=== PATIENT | female | born 1935 | race Caucasian/White ===

== ENCOUNTER 2020-09-09 12:00 | Inpatient (IN) | payer MEDICARE ==
[~2020-09-09] VITALS: Ht 162.6 cm; Wt 61.2 kg
[2020-09-09 12:38] LABS: BILIRUBIN,URINE NEG (NEG); CLARITY,URINE CLOUDY; COLOR,URINE YELLOW; GLUCOSE,URINE NEG (NEG)
[2020-09-09 12:39] LABS: BACTERIA,URINE MOD /HPF (0-FEW); NITRITE,URINE NEG (NEG); RBC,URINE RARE /HPF (0-2); UROBILINOGEN,URINE 0.2 mg/dL (0.2 mg/dL); WBC,URINE TNTC /HPF (0-4)
[2020-09-09 13:10] LABS: CALCIUM 9.4 mg/dL (8.5-10.1); CREATININE 1.4 mg/dL (0.6-1.0); GFR 35.7; POTASSIUM 4.6 mmol/L (3.5-5.1)
[2020-09-09 13:15] LABS: MAGNESIUM 2.1 mg/dL (1.8-2.4); TOTAL BILIRUBIN 0.6 mg/dL (0.2-1.0); TOTAL PROTEIN 8.1 g/dL (6.4-8.2)
[2020-09-09 13:27] LABS: BASO % 0 % (0-3); EOS % 0 % (0-3); HEMATOCRIT 31.2 % (36.0-47.0); HEMOGLOBIN 10.2 g/dL (12.0-15.5); LYMPH # 1.5 x10^3/uL (1.0-4.8); LYMPH % 10 % (24-48); MEAN CORPUSCULAR HEMOGLOBIN 31 pg (25-35); MEAN CORPUSCULAR HGB CONC 33 g/dL (31-37); MEAN CORPUSCULAR VOLUME 93 fL (79-100); MONO # 1.2 x10^3/uL (0.0-1.1); MONO % 7 % (0-9); NEUT # 13.3 x10^3uL (1.8-7.7); NEUT % 83 % (31-73); PLATELET COUNT 370 x10^3/uL (140-400); RED BLOOD COUNT 3.34 x10^6/uL (3.50-5.40); RED CELL DISTRIBUTION WIDTH 13.3 % (11.5-14.5); WHITE BLOOD COUNT 16.2 x10^3/uL (4.0-11.0)
[2020-09-09 14:59] LABS: % LYMPHS 5 % (24-48); % MONOS 6 % (0-10); % SEGS 89 % (35-66); PLT ESTIMATE ADEQUATE (ADEQUATE)
[2020-09-09] MEDS ORDERED: POTA20TA4 PO (20:31)
[2020-09-09] MEDS ORDERED: FURO-69 PO (20:31)
[2020-09-09] MEDS ORDERED: AMLO5TAB4 PO (20:31)
[2020-09-09] MEDS ORDERED: LOSA100T14 PO (20:31)
[2020-09-09] MEDS ORDERED: METF500T16 PO (20:31)
[2020-09-09] MEDS ORDERED: LIDO700A21 TP (20:31)
[2020-09-09] MEDS ORDERED: CHOL400C PO (20:31)
[2020-09-09] MEDS ORDERED: CHOL500021 PO (20:31)
[2020-09-09] MEDS ORDERED: OLAN5TAB3 PO (20:31)
[2020-09-09] MEDS ORDERED: OLAN2.5T3 PO (20:31)
[2020-09-09] MEDS ORDERED: ACET500T68 PO (20:31)
[2020-09-10 07:55] LABS: BASO % 0 % (0-3); EOS # 0.1 x10^3/uL (0.0-0.7); EOS % 1 % (0-3); HEMATOCRIT 28.9 % (36.0-47.0); HEMOGLOBIN 9.6 g/dL (12.0-15.5); LYMPH # 2.5 x10^3/uL (1.0-4.8); LYMPH % 23 % (24-48); MEAN CORPUSCULAR HEMOGLOBIN 32 pg (25-35); MEAN CORPUSCULAR HGB CONC 33 g/dL (31-37); MEAN CORPUSCULAR VOLUME 95 fL (79-100); MONO # 0.9 x10^3/uL (0.0-1.1); MONO % 9 % (0-9); NEUT # 7.2 x10^3uL (1.8-7.7); NEUT % 67 % (31-73); PLATELET COUNT 339 x10^3/uL (140-400); RED BLOOD COUNT 3.06 x10^6/uL (3.50-5.40); RED CELL DISTRIBUTION WIDTH 13.8 % (11.5-14.5); WHITE BLOOD COUNT 10.7 x10^3/uL (4.0-11.0)
[2020-09-10 08:22] LABS: ALBUMIN 3.1 g/dL (3.4-5.0); ALBUMIN/GLOBULIN RATIO 0.8 (1.0-1.7); CALCIUM 8.6 mg/dL (8.5-10.1); CREATININE 0.9 mg/dL (0.6-1.0); GFR 59.5; POTASSIUM 3.5 mmol/L (3.5-5.1); TOTAL BILIRUBIN 0.5 mg/dL (0.2-1.0); TOTAL PROTEIN 6.9 g/dL (6.4-8.2)
[2020-09-11 11:49] LABS: HEMATOCRIT 29.8 % (36.0-47.0); HEMOGLOBIN 9.8 g/dL (12.0-15.5); RED BLOOD COUNT 3.16 x10^6/uL (3.50-5.40); RED CELL DISTRIBUTION WIDTH 13.5 % (11.5-14.5); WHITE BLOOD COUNT 9.4 x10^3/uL (4.0-11.0)
[2020-09-11 12:01] LABS: CALCIUM 8.3 mg/dL (8.5-10.1); CREATININE 0.9 mg/dL (0.6-1.0); GFR 59.5; POTASSIUM 3.4 mmol/L (3.5-5.1)
[2020-09-11 12:07] LABS: ALBUMIN 2.9 g/dL (3.4-5.0); ALBUMIN/GLOBULIN RATIO 0.7 (1.0-1.7); TOTAL BILIRUBIN 0.3 mg/dL (0.2-1.0); TOTAL PROTEIN 6.8 g/dL (6.4-8.2)
[2020-09-11 14:43] VITALS: BP 117/60
[2020-09-11] MEDS ORDERED: LIDO1ADH63 TP (15:47)
[2020-09-11] MEDS ORDERED: LACT1CAP19 PO (15:47)
== END 2020-09-11 15:50 | DRG 871 ==
LOC: ER 12:00 → ICU 15:06
PROVIDERS: ADMIT Internal Medicine; ATTEND Internal Medicine
DX: A41.9 Sepsis, unspecified organism (principal); N17.0 Acute kidney failure with tubular necrosis; F23 Brief psychotic disorder; N39.0 Urinary tract infection, site not specified; I10 Essential (primary) hypertension; F03.90 Unspecified dementia, unspecified severity, without behavioral disturbance, psychotic disturbance, mood disturbance, and anxiety; E86.0 Dehydration; B96.20 Unspecified Escherichia coli [E. coli] as the cause of diseases classified elsewhere; E11.9 Type 2 diabetes mellitus without complications; M16.11 Unilateral primary osteoarthritis, right hip; Z87.891 Personal history of nicotine dependence; F32.9 Major depressive disorder, single episode, unspecified
CPT/HCPCS: 36415; 72192; 80053; 81001; 82947; 83540; 83550; 83605; 83735; 85007; 85025; 85027; 87040; 87077; 87086; 87186; 93005; 96361; 96365; J0696; J1630; J2270; 99291-25; J7030

== ENCOUNTER 2020-09-11 14:13 | Inpatient (IN) | payer MEDICARE ==
[~2020-09-11] VITALS: Ht 162.6 cm; Wt 61.6 kg
[~2020-09-11 14:13] MED LIST: ACET500T68 PO; AMLO5TAB4 PO; CHOL400C PO; CHOL500021 PO; FURO-69 PO; LIDO700A21 TP; LOSA100T14 PO; METF500T16 PO; OLAN2.5T3 PO; OLAN5TAB3 PO; POTA20TA4 PO
--- NOTE | 2020-09-11 15:30 | NUR ---
Admission Note with Justification for Admission to [facility] Patient admitted to [facility] for protective oversight for emergency stabilization of acute psychiatric crisis. Pt admitted from: SNF Mode of arrival: wheelchair Accompanied By: [facility] Staff Precipitating behaviors that initiated intake and admission: stated she wants to kill herself, yelling, threatening to hit others, name calling, insomnia, refusing cares, talking to son who's not there Description of failure of out patient attempts at stabilization in previous setting list behavior and medication trials: stopped steroid, started zyprexa, Dr. Fuller referred to [facility] Behaviors and assessment findings upon admission: Pt is very disorganized, only oriented to herself. She is otherwise pleasant and cooperative with assessment. She can be demanding at times, but is very social and enjoys having someone to talk to. Skin is intact. Pt denies having any pain at time of assessment. Pt denies SI/HI and having hallucinations. Will continue to monitor. Plan: Admit for protective oversight for adjustment and stabilization of medications, behaviors and mood. Intense treatment regimen including groups, medication adjustments, therapy, consistent regimen for ADL's, self care, and sleep hygiene. Daily monitoring by Inpatient staff, Psychiatry, and Medical Physician.
[2020-09-11] MEDS ORDERED: LIDO1ADH63 TP (15:47)
[2020-09-11] MEDS ORDERED: LACT1CAP19 PO (15:47)
--- NOTE | 2020-09-11 15:51 | NUR ---
NSG NOTE; COVID VACCINES X2 RECEIVED 06/02/20 & 06/23/20 AT [facility]
[2020-09-11] MEDS ORDERED: METHYL SALICYLATE/MENTHOL TOPICAL OINTMENT 57GM TUBE. TP PRN (16:15)
[2020-09-11] MEDS ORDERED: ACETAMINOPHEN 325 MG TABLET PO PRN (16:15)
[2020-09-11] MEDS ORDERED: MAGNESIUM HYDROXIDE 2,400 MG/30 ML ORAL.SUSP. PO PRN (16:15)
[2020-09-11] MEDS ORDERED: MAG HYDROX/AL HYDROX/SIMETH 30 ML ORAL.SUSP PO PRN (16:15)
[2020-09-11] MEDS: OLANZapine 2.5 MG TABLET PO PRN ×2 (18:12→23:52)
[2020-09-11 18:28] VITALS: BP 117/60
[2020-09-11] MEDS: OLANZapine 5 MG TABLET PO SCH (20:29)
[2020-09-11] MEDS: ACETAMINOPHEN 500 MG TABLET PO SCH (20:29)
[2020-09-11] MEDS: LACTOBACILLUS RHAMNOSUS GG 1 CAPSULE. PO SCH (20:29)
--- NOTE | 2020-09-11 21:59 | PDOC ---
Exam Note: Hasmukh Note: Please also refer to the separate dictated note~for this date of service dictated separately.~Patient seen individually. Discussed the patient with Nursing staff reviewed the chart.~Reviewed interim history and current functioning. Reviewed vital signs,~Labs/ Radiology~and current medications noted below. Continue current treatment with the changes noted in the dictated addendum note Assessment: Vital Signs/I&O: Vital Signs Date Time Temp Pulse Resp B/P (MAP) Pulse Ox O2 Delivery O2 Flow Rate FiO2 09/11/20 18:28 97.9 96 20 117/60 (79) 98 Room Air Current Medications: Meds: Current Medications Medications (Trade) Dose Ordered Sig/Jose Luis Route PRN Reason Start Time Stop Time Status Last Admin Dose Admin Acetaminophen (Tylenol) 650 mg PRN Q6HRS PRN PO MILD PAIN / TEMP > 100.3'F 09/11/20 16:15 Multi-Ingredient Ointment (Analgesic [place]) 1 maritza PRN QID PRN TP MUSCLE PAIN 09/11/20 16:15 Al Hydroxide/Mg Hydroxide (Mylanta Plus Xs) 15 ml PRN AFTMEALHC PRN PO DYSPEPSIA 09/11/20 16:15 Magnesium Hydroxide (Milk Of Magnesia) 2,400 mg PRN QHS PRN PO CONSTIPATION 09/11/20 16:15 Acetaminophen (Tylenol) 1,000 mg TID PO 09/11/20 21:00 09/11/20 20:29 Amlodipine Besylate (Norvasc) 5 mg DAILY PO 09/12/20 09:00 Vitamin D (Vitamin D3) 50,000 unit WEEKLY PO 09/16/20 09:00 Lactobacillus Rhamnosus (Culturelle) 1 cap BID PO 09/11/20 21:00 09/11/20 20:29 Lidocaine (Lidoderm) 1 patch DAILY TP 09/12/20 09:00 Metformin HCl (Glucophage) 500 mg DAILYWBKFT PO 09/12/20 08:00 Olanzapine (ZyPREXA) 2.5 mg PRN Q4HRS PRN PO ANXIETY 09/11/20 16:15 09/11/20 18:12 Olanzapine (ZyPREXA) 5 mg QHS PO 09/11/20 21:00 09/11/20 20:29 Vitamin D (Vitamin D3) 1,000 unit DAILY PO 09/12/20 09:00 Cefdinir (Omnicef) 300 mg BID PO 09/12/20 09:00 09/16/20 21:01 Current Medications Medications (Trade) Dose Ordered Sig/Jose Luis Route PRN Reason Start Time Stop Time Status Last Admin Dose Admin Acetaminophen (Tylenol) 1,000 mg TID PO 09/11/20 21:00 09/11/20 20:29 Lactobacillus Rhamnosus (Culturelle) 1 cap BID PO 09/11/20 21:00 09/11/20 20:29 Olanzapine (ZyPREXA) 2.5 mg PRN Q4HRS PRN PO ANXIETY 09/11/20 16:15 09/11/20 18:12 Olanzapine (ZyPREXA) 5 mg QHS PO 09/11/20 21:00 09/11/20 20:29 I have reviewed the current psychotropics carefully including drug interactions. Risk benefit ratio favors no change other than as noted in my dictated progress note. Diagnosis: Problems: (1) Anxiety disorder, unspecified (2) Major neurocognitive disorder (3) Impulse control disorder FIDELINA GARCIA MD Sep 11, 2020 21:59
--- NOTE | 2020-09-12 00:46 | HP ---
ADMIT DATE: 09/11/2020 ADMISSION HISTORY/EVALUATION This note covers elements not covered in my initial note 09/11/2020. IDENTIFYING DATA: The patient is an 85-year-old female referred to us from [facility] initially admitted to [facility] Medical/Surgical floor till her COVID screen was negative and then transitioned to us. She has been residing at [facility] with a diagnosis of major neurocognitive disorder, Alzheimer, vascular with delusion, depression, behavioral disturbance. Recently, she was in the ICU for urosepsis and has had problems with yelling, threatening to hit others at the longterm, name calling, marked insomnia, refusing cares, talking to her son who was not there. At times, she has made statement she wanted to kill herself. The patient's behaviors were deemed unmanageable at the facility, had failed outpatient psychiatric interventions resulting in this referral. CHIEF COMPLAINT: "No, I don't know where I am or when I came here." The patient responds to my specific questions. HISTORY OF PRESENT ILLNESS: The patient has a history of dementia, Alzheimer's vascular type. She has been residing at the above facility for some time and recently getting increasingly agitated, paranoid, confused, yelling, threatening as noted above. She has been depressed, anxious, made threats to kill herself. No clear history of bipolar disorder or homicidal ideation. PAST PSYCHIATRIC HISTORY: As above. MEDICAL HISTORY: Positive for hypertension, osteoarthritis, diabetes mellitus. She ambulates in a wheelchair. ALLERGIES: Negative. CODE STATUS: DNR. ACCU-CHEKS: Daily. UA is positive for UTI. CURRENT PSYCHOTROPICS: Zyprexa was added p.r.n. at admission for psychosis, agitation. FAMILY HISTORY: Noncontributory. SOCIAL HISTORY: No history of alcohol, drug abuse, physical, sexual or elder abuse. She is not known to be a perpetrator. REACTION TO HOSPITALIZATION: The patient oblivious of it. ASSETS: Supportive living at the above facility. REVIEW OF SYSTEMS: Ambulation impaired. No CV, , pulmonary, eye, ENT system symptoms on review. MENTAL STATUS EXAMINATION: Oriented to herself. Insight, judgment, recent and remote memory, attention, concentration, fund of knowledge poor, consistent with her diagnosis. IMPRESSION: Major neurocognitive disorder, Alzheimer, vascular with delusion, depression, behavioral disturbance; anxiety disorder, unspecified; impulse control disorder, unspecified; rule out urinary tract infection. Rest as above. PLAN: Admit to Geropsychiatry Unit at [facility]. I will see the patient daily individually from a psychiatric standpoint. Medical followup with Dr. Fuller/Dr. Vera. Continue current psychotropics. Observe baseline, adjust as clinically indicated. ESTIMATED LENGTH OF STAY: 10-12 days. DISPOSITION: Plans back to longterm when stable. MAN Edwin GARCIA MD DR: ERICK/jeri JOB#: [id number] / [id number]
[2020-09-12] MEDS: OLANZapine 2.5 MG TABLET PO PRN ×3 (01:42→22:16)
--- NOTE | 2020-09-12 01:47 | NUR ---
Last evening pt sat in in the day room and was very confused socail and cooperative. She took meds whole without difficulty. After going to bed she slept briefly and has been restless since. She yells when being transferred and wants to get up often. PRN zyprexa has been given x2 and she remains awake.
[2020-09-12 06:51] VITALS: BP 116/67
[2020-09-12] MEDS: CHOLECALCIFEROL (VITAMIN D3) 1,000 UNIT TABLET PO SCH (08:08)
[2020-09-12] MEDS: ACETAMINOPHEN 500 MG TABLET PO SCH ×4 (08:08→20:48)
[2020-09-12] MEDS: CEFDINIR 300 MG CAPSULE PO SCH ×2 (08:08→20:48)
[2020-09-12] MEDS: metFORMIN 500 MG TABLET PO SCH (08:08)
[2020-09-12] MEDS: amLODIPine BESYLATE 5 MG TABLET PO SCH (08:08)
[2020-09-12] MEDS: LACTOBACILLUS RHAMNOSUS GG 1 CAPSULE. PO SCH ×2 (08:08→20:48)
[2020-09-12] MEDS: LIDOCAINE (700MG/PATCH) PATCH. TP SCH (08:09)
--- NOTE | 2020-09-12 09:37 | NUR ---
Patient resistive to medication administration. Patient appears to be unable to comprehend the importance of taking her medication at this time. Patient able to take them with constant encouragement and staff serving it on a spoon. Patient kind towards peers.
[2020-09-12 10:39] LABS: BASO % 0 % (0-3); EOS # 0.1 x10^3/uL (0.0-0.7); EOS % 1 % (0-3); HEMATOCRIT 30.2 % (36.0-47.0); HEMOGLOBIN 9.8 g/dL (12.0-15.5); LYMPH # 2.3 x10^3/uL (1.0-4.8); LYMPH % 21 % (24-48); MEAN CORPUSCULAR HEMOGLOBIN 31 pg (25-35); MEAN CORPUSCULAR HGB CONC 33 g/dL (31-37); MEAN CORPUSCULAR VOLUME 94 fL (79-100); MONO % 9 % (0-9); NEUT # 7.8 x10^3uL (1.8-7.7); NEUT % 70 % (31-73); PLATELET COUNT 377 x10^3/uL (140-400); RED CELL DISTRIBUTION WIDTH 13.3 % (11.5-14.5); WHITE BLOOD COUNT 11.2 x10^3/uL (4.0-11.0)
[2020-09-12 10:42] LABS: ALBUMIN 3.4 g/dL (3.4-5.0); ALBUMIN/GLOBULIN RATIO 0.8 (1.0-1.7); CALCIUM 8.8 mg/dL (8.5-10.1); GFR 52.7; MAGNESIUM 1.7 mg/dL (1.8-2.4); POTASSIUM 3.5 mmol/L (3.5-5.1); TOTAL BILIRUBIN 0.3 mg/dL (0.2-1.0); TOTAL PROTEIN 7.5 g/dL (6.4-8.2)
[2020-09-12 15:43] VITALS: BP 117/77
[2020-09-12 19:16] LABS: THYROID STIM HORMONE (TSH) 1.663 uIU/mL (0.358-3.740)
[2020-09-12] MEDS: traZODone 50 MG TABLET. PO PRN ×2 (20:48→22:16)
[2020-09-12] MEDS: OLANZapine 5 MG TABLET PO SCH (20:48)
[2020-09-12] MEDS: MIRTAZAPINE 7.5 MG TABLET. PO SCH (20:48)
--- NOTE | 2020-09-12 21:50 | PDOC ---
Exam Note: Hasmukh Note: Please also refer to the separate dictated note~for this date of service dictated separately.~Patient seen individually. Discussed the patient with Nursing staff reviewed the chart.~Reviewed interim history and current functioning. Reviewed vital signs,~Labs/ Radiology~and current medications noted below. Continue current treatment with the changes noted in the dictated addendum note Assessment: Vital Signs/I&O: Vital Signs Date Time Temp Pulse Resp B/P (MAP) Pulse Ox O2 Delivery O2 Flow Rate FiO2 09/12/20 15:43 97.2 95 20 117/77 (90) 97 09/11/20 18:28 Room Air I & O 09/11/20 09/11/20 09/12/20 15:00 23:00 07:00 Intake Total 240 ml 120 ml Balance 240 ml 120 ml Labs: Laboratory Tests Test 09/12/20 07:21 09/12/20 09:45 Glucose (Fingerstick) 129 mg/dL (70-99) H White Blood Count 11.2 x10^3/uL (4.0-11.0) H Red Blood Count 3.20 x10^6/uL (3.50-5.40) L Hemoglobin 9.8 g/dL (12.0-15.5) L Hematocrit 30.2 % (36.0-47.0) L Mean Corpuscular Volume 94 fL (79-100) Mean Corpuscular Hemoglobin 31 pg (25-35) Mean Corpuscular Hemoglobin Concent 33 g/dL (31-37) Red Cell Distribution Width 13.3 % (11.5-14.5) Platelet Count 377 x10^3/uL (140-400) Neutrophils (%) (Auto) 70 % (31-73) Lymphocytes (%) (Auto) 21 % (24-48) L Monocytes (%) (Auto) 9 % (0-9) Eosinophils (%) (Auto) 1 % (0-3) Basophils (%) (Auto) 0 % (0-3) Neutrophils # (Auto) 7.8 x10^3uL (1.8-7.7) H Lymphocytes # (Auto) 2.3 x10^3/uL (1.0-4.8) Monocytes # (Auto) 1.0 x10^3/uL (0.0-1.1) Eosinophils # (Auto) 0.1 x10^3/uL (0.0-0.7) Basophils # (Auto) 0.0 x10^3/uL (0.0-0.2) D-Dimer (Tara) 2.05 mg/L (0.00-0.50) H Sodium Level 137 mmol/L (136-145) Potassium Level 3.5 mmol/L (3.5-5.1) Chloride Level 104 mmol/L (98-107) Carbon Dioxide Level 21 mmol/L (21-32) Anion Gap 12 (6-14) Blood Urea Nitrogen 10 mg/dL (7-20) Creatinine 1.0 mg/dL (0.6-1.0) Estimated GFR (Cockcroft-Gault) 52.7 BUN/Creatinine Ratio 10 (6-20) Glucose Level 139 mg/dL (70-99) H Calcium Level 8.8 mg/dL (8.5-10.1) Magnesium Level 1.7 mg/dL (1.8-2.4) L Iron Level 28 ug/dL (50-170) L Total Iron Binding Capacity 207 ug/dL (250-450) L Iron Saturation 14 % (15-34) L Total Bilirubin 0.3 mg/dL (0.2-1.0) Aspartate Amino Transferase (AST) 22 U/L (15-37) Alanine Aminotransferase (ALT) 24 U/L (14-59) Alkaline Phosphatase 56 U/L (46-116) Total Protein 7.5 g/dL (6.4-8.2) Albumin 3.4 g/dL (3.4-5.0) Albumin/Globulin Ratio 0.8 (1.0-1.7) L Triglycerides Level 138 mg/dL (0-150) Cholesterol Level 169 mg/dL (0-200) LDL Cholesterol, Calculated 106 mg/dL (0-100) H VLDL Cholesterol, Calculated 27 mg/dL (0-40) Non-HDL Cholesterol Calculated 133 mg/dL (0-129) H HDL Cholesterol 36 mg/dL (40-60) L Cholesterol/HDL Ratio 4.0 Thyroid Stimulating Hormone (TSH) 1.663 uIU/mL (0.358-3.740) Current Medications: Meds: Laboratory Tests Test 09/12/20 07:21 09/12/20 09:45 Glucose (Fingerstick) 129 mg/dL White Blood Count 11.2 x10^3/uL Red Blood Count 3.20 x10^6/uL Hemoglobin 9.8 g/dL Hematocrit 30.2 % Mean Corpuscular Volume 94 fL Mean Corpuscular Hemoglobin 31 pg Mean Corpuscular Hemoglobin Concent 33 g/dL Red Cell Distribution Width 13.3 % Platelet Count 377 x10^3/uL Neutrophils (%) (Auto) 70 % Lymphocytes (%) (Auto) 21 % Monocytes (%) (Auto) 9 % Eosinophils (%) (Auto) 1 % Basophils (%) (Auto) 0 % Neutrophils # (Auto) 7.8 x10^3uL Lymphocytes # (Auto) 2.3 x10^3/uL Monocytes # (Auto) 1.0 x10^3/uL Eosinophils # (Auto) 0.1 x10^3/uL Basophils # (Auto) 0.0 x10^3/uL D-Dimer (Tara) 2.05 mg/L Sodium Level 137 mmol/L Potassium Level 3.5 mmol/L Chloride Level 104 mmol/L Carbon Dioxide Level 21 mmol/L Anion Gap 12 Blood Urea Nitrogen 10 mg/dL Creatinine 1.0 mg/dL Estimated GFR (Cockcroft-Gault) 52.7 BUN/Creatinine Ratio 10 Glucose Level 139 mg/dL Calcium Level 8.8 mg/dL Magnesium Level 1.7 mg/dL Iron Level 28 ug/dL Total Iron Binding Capacity 207 ug/dL Iron Saturation 14 % Total Bilirubin 0.3 mg/dL Aspartate Amino Transf (AST/SGOT) 22 U/L Alanine Aminotransferase (ALT/SGPT) 24 U/L Alkaline Phosphatase 56 U/L Total Protein 7.5 g/dL Albumin 3.4 g/dL Albumin/Globulin Ratio 0.8 Triglycerides Level 138 mg/dL Cholesterol Level 169 mg/dL LDL Cholesterol, Calculated 106 mg/dL VLDL Cholesterol, Calculated 27 mg/dL Non-HDL Cholesterol Calculated 133 mg/dL HDL Cholesterol 36 mg/dL Cholesterol/HDL Ratio 4.0 Thyroid Stimulating Hormone (TSH) 1.663 uIU/mL Current Medications Medications (Trade) Dose Ordered Sig/Jose Luis Route PRN Reason Start Time Stop Time Status Last Admin Dose Admin Acetaminophen (Tylenol) 650 mg PRN Q6HRS PRN PO MILD PAIN / TEMP > 100.3'F 09/11/20 16:15 Multi-Ingredient Ointment (Analgesic [place]) 1 maritza PRN QID PRN TP MUSCLE PAIN 09/11/20 16:15 Al Hydroxide/Mg Hydroxide (Mylanta Plus Xs) 15 ml PRN AFTMEALHC PRN PO DYSPEPSIA 09/11/20 16:15 Magnesium Hydroxide (Milk Of Magnesia) 2,400 mg PRN QHS PRN PO CONSTIPATION 09/11/20 16:15 Acetaminophen (Tylenol) 1,000 mg TID PO 09/11/20 21:00 09/12/20 20:48 Amlodipine Besylate (Norvasc) 5 mg DAILY PO 09/12/20 09:00 09/12/20 08:08 Vitamin D (Vitamin D3) 50,000 unit WEEKLY PO 09/16/20 09:00 Lactobacillus Rhamnosus (Culturelle) 1 cap BID PO 09/11/20 21:00 09/12/20 20:48 Lidocaine (Lidoderm) 1 patch DAILY TP 09/12/20 09:00 09/12/20 08:09 Metformin HCl (Glucophage) 500 mg DAILYWBKFT PO 09/12/20 08:00 09/12/20 08:08 Olanzapine (ZyPREXA) 2.5 mg PRN Q4HRS PRN PO ANXIETY 09/11/20 16:15 09/12/20 13:32 Olanzapine (ZyPREXA) 5 mg QHS PO 09/11/20 21:00 09/12/20 20:48 Vitamin D (Vitamin D3) 1,000 unit DAILY PO 09/12/20 09:00 09/12/20 08:08 Cefdinir (Omnicef) 300 mg BID PO 09/12/20 09:00 09/16/20 21:01 09/12/20 20:48 Mirtazapine (Remeron) 7.5 mg QHS PO 09/12/20 21:00 09/12/20 20:48 Trazodone HCl (Desyrel) 50 mg PRN QHS PRN PO INSOMNIA 09/12/20 18:15 09/12/20 20:48 Current Medications Medications (Trade) Dose Ordered Sig/Jose Luis Route PRN Reason Start Time Stop Time Status Last Admin Dose Admin Amlodipine Besylate (Norvasc) 5 mg DAILY PO 09/12/20 09:00 09/12/20 08:08 Lidocaine (Lidoderm) 1 patch DAILY TP 09/12/20 09:00 09/12/20 08:09 Metformin HCl (Glucophage) 500 mg DAILYWBKFT PO 09/12/20 08:00 09/12/20 08:08 Vitamin D (Vitamin D3) 1,000 unit DAILY PO 09/12/20 09:00 09/12/20 08:08 Cefdinir (Omnicef) 300 mg BID PO 09/12/20 09:00 09/16/20 21:01 09/12/20 20:48 Mirtazapine (Remeron) 7.5 mg QHS PO 09/12/20 21:00 09/12/20 20:48 Trazodone HCl (Desyrel) 50 mg PRN QHS PRN PO INSOMNIA 09/12/20 18:15 09/12/20 20:48 I have reviewed the current psychotropics carefully including drug interactions. Risk benefit ratio favors no change other than as noted in my dictated progress note. Diagnosis: Problems: (1) Dementia in Alzheimer's disease with delusions (2) Dementia in Alzheimer's disease with depression (3) Dementia in Alzheimer's disease with early onset with behavioral disturbance (4) Dementia, vascular, with delusions (5) Dementia, vascular, with depression (6) Impulse control disorder (7) Anxiety disorder, unspecified (8) Major neurocognitive disorder FIDELINA GARCIA MD Sep 12, 2020 21:50
--- NOTE | 2020-09-12 23:31 | NUR ---
Pt located in the dayroom this evening. Pt appears to be hallucinating; pointing at things that are not there. Pt highly disorganized, rambling with word salad. Pt restless and resistive to HS medications. HS medications administered whole on a spoon. Pt chewed the majority of the pills. PRN Trazodone administered with HS medications. Once in bed, pt highly restless and repeatedly attempting to get out of bed, waking her roommate up. Pt taken to the quiet room for safety. Repeat Trazodone and Zyprexa administered at that time. Pt currently awake on the mattress intermittently yelling out.
--- NOTE | 2020-09-13 01:42 | CONS ---
DATE OF CONSULTATION: 09/12/2020 REASON FOR CONSULTATION: Medical management. HISTORY OF PRESENT ILLNESS: The patient is an 85-year-old patient is a resident at [facility]. who was sent to [address] [place] [address] initially as initial lab work in the emergency room showed that she has urinary tract infection. She was started empirically on IV Rocephin and her urine culture has grown more than 100,000 colony forming units per mL of gram-negative rods identified as Escherichia coli sensitive to all antibiotics. She did receive 3 days of IV Rocephin and switched her to cefdinir as the plan was stated to [facility] on account of stating that she wanted to kill herself. She is yelling and threatening to hit others, name calling, has insomnia, refusing care, talking her son who is not there, all this on a background of major neurocognitive disorder, Alzheimer with delusions, anxiety or depression and impulse control disorder. The patient is extremely demented, does not really give any useful information. PAST MEDICAL HISTORY: Significant for hypertension, type 2 diabetes, depression, dementia, severe osteoporosis, osteoarthritis, severe advanced osteoarthritis of the right hip joint and to a lesser extent to left hip joint. PAST SURGICAL HISTORY: Unremarkable. FAMILY HISTORY: Noncontributory. SOCIAL HISTORY: She is . She was living at an independent living facility; however, she is now in the long-term side of [facility]. She has one son. She is a former smoker, but quit smoking. She does not drink alcohol or recreational drugs. REVIEW OF SYSTEMS: As per history of present illness. ALLERGIES: She has no known drug allergies. MEDICATIONS: She is currently on the following medication. She is on vitamin D 50,000 units once a week, cefdinir 300 mg twice a day for 5 more days, vitamin D 1000 units once daily, Lidoderm patch 1 patch topically to the right hip joint on for 12 hours, off for 12 hours, amlodipine 5 mg once a day, metformin 500 mg with breakfast, olanzapine 5 mg at bedtime, Lactobacillus rhamnosus 1 capsule twice a day, acetaminophen 1000 mg 3 times a day, olanzapine 2.5 mg q.4 hours, magnesium hydroxide, milk of magnesia 30 mL p.o. daily p.r.n. for constipation, Mylanta 15 mL after meals and bedtime and acetaminophen 650 mg every 6 hours. PHYSICAL EXAMINATION: GENERAL: On examining her, she looked pale. No jaundice, cyanosis or thyromegaly. No jugular venous distention, no lymphedema. VITAL SIGNS: Heart rate was 96, blood pressure 117/60, temperature was 97.9, respiratory rate was 20 and oxygen saturation was 98% on room air. HEAD, EYES, EARS, NOSE AND THROAT: Normocephalic, atraumatic. NECK: Supple. HEART: Showed normal first and second sounds. No gallop or murmur. CHEST: Showed central trachea, equal bilateral chest expansion, air entry. Vesicular breath sounds. No crepitation or rhonchi. ABDOMEN: Distended, soft, nontender. NEUROLOGIC: She was demented. Her speech is nonsensical. Otherwise, all cranial nerves intact. She moves upper extremities symmetrically, lower extremities passive or active movement of her lower extremities induce severe pain. LABORATORY DATA: We did x-ray of her pelvis and both hip joint and she has severe advanced osteoarthritis of the right hip joint and to a lesser extent to the left hip joint. Her lab work showed a white cell count of 11,200, hemoglobin 9.8, hematocrit 30, MCV 94 and platelet count 377,000 with normal manual differential. Her serum sodium is 137, potassium 3.5, chloride 104, bicarbonate 21, anion gap of 12, BUN 10, creatinine 1. Estimated GFR was 52 mL per minute, Her glucose 139, calcium was 8.8, magnesium was 1.7. Total bilirubin, AST, ALT, alkaline phosphatase were normal. Total protein 7.5, albumin was 3.4. Her D-dimer was slightly high at 2.05 mg/dL. ASSESSMENT: In summary, this is an 85-year-old female patient, resident at [facility] who was admitted on account of wanting to kill herself, yelling, threatening to hit others, name calling, refusing care and talking to a son who is not there, all this in the background of major neurocognitive disorder. She was diagnosed with urinary tract infection with growth of more than 100,000 colony forming units per mL of gram-negative rods identified as Escherichia coli sensitive to all antibiotics. She has received 3-day course of IV Rocephin and she is to continue with oral cefdinir. I will obviously follow all her lab work and make any necessary recommendation. We did add Lidoderm patch to the pain of the right hip joint. Thank you, Dr. Chua for allowing me to participate in the care of this patient. LILIYA DR: Alina TID: [id number]
[2020-09-13 05:55] LABS: THYROXINE 7.3 ug/dL (4.5-12.0)
--- NOTE | 2020-09-13 06:00 | NUR ---
Pt awake all night yelling out intermittently.
[2020-09-13 06:10] VITALS: BP 147/61
[2020-09-13 07:18] LABS: HEMOGLOBIN A1C 5.9 % (4.8-5.6)
[2020-09-13] MEDS: CEFDINIR 300 MG CAPSULE PO SCH ×2 (08:18→22:14)
[2020-09-13] MEDS: metFORMIN 500 MG TABLET PO SCH (08:18)
[2020-09-13] MEDS: amLODIPine BESYLATE 5 MG TABLET PO SCH (08:19)
[2020-09-13] MEDS: ACETAMINOPHEN 500 MG TABLET PO SCH ×3 (08:19→21:00)
[2020-09-13] MEDS: LIDOCAINE (700MG/PATCH) PATCH. TP SCH (08:19)
[2020-09-13] MEDS: LACTOBACILLUS RHAMNOSUS GG 1 CAPSULE. PO SCH ×2 (08:19→21:00)
[2020-09-13] MEDS: CHOLECALCIFEROL (VITAMIN D3) 1,000 UNIT TABLET PO SCH (08:19)
--- NOTE | 2020-09-13 09:28 | NUR ---
Patient is lethargic this morning. Patient spit out medications but swallowed them with a second effort. it will be recommended for patients medication to be crushed moving forward. patient will be laid down for a nap.
[2020-09-13 15:48] VITALS: BP_SYST 128
[2020-09-13 15:49] VITALS: BP 128/62
--- NOTE | 2020-09-13 17:18 | HP ---
ADMIT DATE: 09/11/2020 This late entry date of service 09/11/2020 covers elements not covered in my initial note. I met with the patient evening of 09/11/2020. IDENTIFYING DATA: The patient is an 85-year-old female referred to us from [facility] by Dr. Fuller, her primary care physician on account of worsening confusion, making statements that she wanted to kill herself. She was yelling, threatening to hit others and was name calling, having marked insomnia, refusing cares, talking to her son who was not there. The patient had failed outpatient psychiatric interventions. Behaviors were deemed dangerous, unmanageable, disruptive at the facility. Patient was referred for inpatient psychiatric stabilization. CHIEF COMPLAINT: "No." The patient is oblivious of her surroundings, oriented just to herself, restless, anxious as I met with her. HISTORY OF PRESENT ILLNESS: The patient has a history of dementia, Alzheimer's vascular type. Patient has been residing at the above facility for some time. Recently, she is getting more paranoid, agitated, disruptive with marked insomnia, mood lability, irritability and aggression. She has failed outpatient psychiatric interventions. No clear history of bipolar disorder. PAST PSYCHIATRIC HISTORY: As above. MEDICAL HISTORY: Positive for hypertension, diabetes mellitus, osteoarthritis. DRUG ALLERGIES: Negative. CODE STATUS: Full code. ACCU-CHEKS: Daily. DIET: ADA. Takes medications whole, but she is resistive. Ambulates in wheelchair, 1 person transfer. Does have a UTI, on cefdinir until 09/16. CURRENT PSYCHOTROPICS: Zyprexa 5 mg at bedtime and p.r.n. FAMILY HISTORY: Noncontributory. SOCIAL HISTORY: No history of alcohol, drug abuse, physical, sexual or elder abuse. She is not known to be a perpetrator. REACTION TO HOSPITALIZATION: The patient oblivious of this. ASSETS: Supportive living at the above facility. REVIEW OF SYSTEMS: No CV, , pulmonary, eye, ENT system symptoms on review. Reliability poor. Gait unsteady, in wheelchair. MENTAL STATUS EXAMINATION: The patient is oriented to herself. Insight, judgment, recent and remote memory, attention, concentration, fund of knowledge poor, consistent with her diagnoses. IMPRESSION: Major neurocognitive disorder, Alzheimer, vascular with delusion, depression, behavioral disturbance; anxiety disorder, unspecified; impulse control disorder, unspecified; urinary tract infection. Rest diagnoses as above. PLAN: Admit to Geropsychiatry Unit at [facility]. I will see the patient daily individually from a psychiatric standpoint. Medical followup with Dr. Fuller/Dr. Vera. Continue current psychotropics. Treat the UTI. Observe baseline. Consider Remeron if she does not sleep along with possible trazodone. Make further adjustments as clinically indicated. Consider Depakote as a mood stabilizer, SSRIs for her mood and anxiety symptoms. ESTIMATED LENGTH OF STAY: 10-12 days. DISPOSITION: Plan is back to [facility] when stable. FIDELINA GARCIA MD DR: ERICK/jeri JOB#: [id number] / [id number]
--- NOTE | 2020-09-13 17:34 | PN ---
DATE: 09/11/2020 PSYCHIATRIC PROGRESS NOTE This late entry date of service 09/12/2020 covers elements not covered in my initial note. SUBJECTIVE: I met with the patient evening of 09/12. The patient slept poorly previous night and we will start her on Remeron 7.5 mg at bedtime, trazodone 50 mg at bedtime p.r.n. insomnia, may repeat x 1. She remains anxious, restless. Discussed with ANNE-MARIE Shi. Patient is resistive to medications. She is quite disruptive at times. REVIEW OF SYSTEMS: No CV, , pulmonary, eye, ENT system symptoms on review. Reliability poor. MENTAL STATUS EXAM: Oriented to herself. Insight, judgment, recent and remote memory, attention, concentration, fund of knowledge poor, consistent with her diagnoses. IMPRESSION: Major neurocognitive disorder, Alzheimer, vascular with delusion, depression, behavioral disturbance; anxiety disorder, unspecified; impulse control disorder, unspecified; urinary tract infection. Rest diagnosis unchanged from before. PLAN: Continue current psychotropics. Add the Remeron and trazodone as noted. Reviewed drug interactions, risk/benefit ratio. Consider adding Depakote as a mood stabilizer, possible SSRIs, but we will first see how she does for stabilization of her sleep, resolution of UTI and then make further decisions. Lengthy review of her records as part of this determination. MAN Edwin GARCIA MD DR: ERICK/jeri JOB#: [id number] / [id number]
--- NOTE | 2020-09-13 22:00 | PDOC ---
Exam Note: Hasmukh Note: Please also refer to the separate dictated note~for this date of service dictated separately.~Patient seen individually. Discussed the patient with Nursing staff reviewed the chart.~Reviewed interim history and current functioning. Reviewed vital signs,~Labs/ Radiology~and current medications noted below. Continue current treatment with the changes noted in the dictated addendum note Assessment: Vital Signs/I&O: Vital Signs Date Time Temp Pulse Resp B/P (MAP) Pulse Ox O2 Delivery O2 Flow Rate FiO2 09/13/20 15:49 98.0 85 18 128/62 (84) 98 09/11/20 18:28 Room Air I & O 09/12/20 09/12/20 09/13/20 14:59 22:59 06:59 Intake Total 240 ml 480 ml Balance 240 ml 480 ml Labs: Laboratory Tests Test 09/13/20 08:02 Glucose (Fingerstick) 148 mg/dL (70-99) H Current Medications: Meds: Laboratory Tests Test 09/13/20 08:02 Glucose (Fingerstick) 148 mg/dL Current Medications Medications (Trade) Dose Ordered Sig/Jose Luis Route PRN Reason Start Time Stop Time Status Last Admin Dose Admin Acetaminophen (Tylenol) 650 mg PRN Q6HRS PRN PO MILD PAIN / TEMP > 100.3'F 09/11/20 16:15 Multi-Ingredient Ointment (Analgesic [place]) 1 maritza PRN QID PRN TP MUSCLE PAIN 09/11/20 16:15 Al Hydroxide/Mg Hydroxide (Mylanta Plus Xs) 15 ml PRN AFTMEALHC PRN PO DYSPEPSIA 09/11/20 16:15 Magnesium Hydroxide (Milk Of Magnesia) 2,400 mg PRN QHS PRN PO CONSTIPATION 09/11/20 16:15 Acetaminophen (Tylenol) 1,000 mg TID PO 09/11/20 21:00 09/13/20 12:15 Amlodipine Besylate (Norvasc) 5 mg DAILY PO 09/12/20 09:00 09/13/20 08:19 Vitamin D (Vitamin D3) 50,000 unit WEEKLY PO 09/16/20 09:00 Lactobacillus Rhamnosus (Culturelle) 1 cap BID PO 09/11/20 21:00 09/13/20 08:19 Lidocaine (Lidoderm) 1 patch DAILY TP 09/12/20 09:00 09/13/20 08:19 Metformin HCl (Glucophage) 500 mg DAILYWBKFT PO 09/12/20 08:00 09/13/20 08:18 Olanzapine (ZyPREXA) 2.5 mg PRN Q4HRS PRN PO ANXIETY 09/11/20 16:15 09/12/20 22:16 Olanzapine (ZyPREXA) 5 mg QHS PO 09/11/20 21:00 09/12/20 20:48 Vitamin D (Vitamin D3) 1,000 unit DAILY PO 09/12/20 09:00 09/13/20 08:19 Cefdinir (Omnicef) 300 mg BID PO 09/12/20 09:00 09/16/20 21:01 09/13/20 08:18 Mirtazapine (Remeron) 7.5 mg QHS PO 09/12/20 21:00 09/12/20 20:48 Trazodone HCl (Desyrel) 50 mg PRN QHS PRN PO INSOMNIA 09/12/20 18:15 09/12/20 22:16 Melatonin (Melatonin) 3 mg HS PO 09/13/20 21:00 I have reviewed the current psychotropics carefully including drug interactions. Risk benefit ratio favors no change other than as noted in my dictated progress note. 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
[2020-09-13] MEDS: MELATONIN 3 MG TABLET PO SCH (22:14)
[2020-09-13] MEDS: MIRTAZAPINE 7.5 MG TABLET. PO SCH (22:14)
[2020-09-13] MEDS: traZODone 50 MG TABLET. PO PRN (22:14)
[2020-09-13] MEDS: OLANZapine 5 MG TABLET PO SCH (22:14)
--- NOTE | 2020-09-13 22:32 | NUR ---
Pt located in her room sleeping soundly at start of shift. HS medications held until 2200 when pt woke up. Compliant with crushed medications. Pt woke up yelling and was moved to the quiet room d/t waking up her roommate. Pt disorganized with word salad, yelling during ADLs. Pt currently sleeping in quiet room.
[2020-09-14 06:24] VITALS: BP 156/77
--- NOTE | 2020-09-14 07:54 | PDOC ---
Exam Note: Hasmukh Note: This note is a late entry for 09/13/2020 covers elements not covered in my initial note. Subjective: The patient was seen individually in the evening of 09/13/2020 with Jean Carlos XIE, discussed and reviewed the chart. She did not sleep at all last night. She has been less anxious, restless, more redirectable, very confused. Review of Systems: No CV, , pulmonary, eye, ENT system symptoms on review. Mental Status Exam: The patient is oriented to herself. Insight and judgment, recent and remote memory, attention and concentration, fund of knowledge is poor consistent with her diagnoses. Laboratory Data: Reviewed. Impression: Major neurocognitive disorder Alzheimer vascular with delusion, depression, behavioral disturbance. Anxiety disorder unspecified. Impulse control disorder unspecified. Plan: Continue current psychotropics. We may consider increasing the Remeron and trazodone but for now we will add melatonin 3 mg p.o. h.s. for insomnia. We will adjust further as clinically indicated. Assessment: Vital Signs/I&O: Vital Signs Date Time Temp Pulse Resp B/P (MAP) Pulse Ox O2 Delivery O2 Flow Rate FiO2 09/14/20 06:24 97.2 88 16 156/77 (103) 96 09/11/20 18:28 Room Air I & O 09/13/20 09/13/20 09/14/20 15:00 23:00 07:00 Intake Total 240 ml 120 ml Balance 240 ml 120 ml Labs: Laboratory Tests Test 09/13/20 08:02 09/14/20 07:35 Glucose (Fingerstick) 148 mg/dL (70-99) H 114 mg/dL (70-99) H Current Medications: Meds: Laboratory Tests Test 09/13/20 08:02 09/14/20 07:35 Glucose (Fingerstick) 148 mg/dL 114 mg/dL Current Medications Medications (Trade) Dose Ordered Sig/Jose Luis Route PRN Reason Start Time Stop Time Status Last Admin Dose Admin Acetaminophen (Tylenol) 650 mg PRN Q6HRS PRN PO MILD PAIN / TEMP > 100.3'F 09/11/20 16:15 Multi-Ingredient Ointment (Analgesic [place]) 1 maritza PRN QID PRN TP MUSCLE PAIN 09/11/20 16:15 Al Hydroxide/Mg Hydroxide (Mylanta Plus Xs) 15 ml PRN AFTMEALHC PRN PO DYSPEPSIA 09/11/20 16:15 Magnesium Hydroxide (Milk Of Magnesia) 2,400 mg PRN QHS PRN PO CONSTIPATION 09/11/20 16:15 Acetaminophen (Tylenol) 1,000 mg TID PO 09/11/20 21:00 09/13/20 12:15 Amlodipine Besylate (Norvasc) 5 mg DAILY PO 09/12/20 09:00 09/13/20 08:19 Vitamin D (Vitamin D3) 50,000 unit WEEKLY PO 09/16/20 09:00 Lactobacillus Rhamnosus (Culturelle) 1 cap BID PO 09/11/20 21:00 09/13/20 08:19 Lidocaine (Lidoderm) 1 patch DAILY TP 09/12/20 09:00 09/13/20 08:19 Metformin HCl (Glucophage) 500 mg DAILYWBKFT PO 09/12/20 08:00 09/13/20 08:18 Olanzapine (ZyPREXA) 2.5 mg PRN Q4HRS PRN PO ANXIETY 09/11/20 16:15 09/12/20 22:16 Olanzapine (ZyPREXA) 5 mg QHS PO 09/11/20 21:00 09/13/20 22:14 Vitamin D (Vitamin D3) 1,000 unit DAILY PO 09/12/20 09:00 09/13/20 08:19 Cefdinir (Omnicef) 300 mg BID PO 09/12/20 09:00 09/16/20 21:01 09/13/20 22:14 Mirtazapine (Remeron) 7.5 mg QHS PO 09/12/20 21:00 09/13/20 22:14 Trazodone HCl (Desyrel) 50 mg PRN QHS PRN PO INSOMNIA 09/12/20 18:15 09/13/20 22:14 Melatonin (Melatonin) 3 mg HS PO 09/13/20 21:00 09/13/20 22:14 Current Medications Medications (Trade) Dose Ordered Sig/Jose Luis Route PRN Reason Start Time Stop Time Status Last Admin Dose Admin Melatonin (Melatonin) 3 mg HS PO 09/13/20 21:00 09/13/20 22:14 I have reviewed the current psychotropics carefully including drug interactions. Risk benefit ratio favors no change other than as noted in my dictated progress note. 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
[2020-09-14] MEDS: metFORMIN 500 MG TABLET PO SCH (08:29)
[2020-09-14] MEDS: CHOLECALCIFEROL (VITAMIN D3) 1,000 UNIT TABLET PO SCH (08:29)
[2020-09-14] MEDS: amLODIPine BESYLATE 5 MG TABLET PO SCH (08:29)
[2020-09-14] MEDS: CEFDINIR 300 MG CAPSULE PO SCH ×2 (08:29→19:24)
[2020-09-14] MEDS: ACETAMINOPHEN 500 MG TABLET PO SCH ×3 (08:29→19:25)
[2020-09-14] MEDS: LACTOBACILLUS RHAMNOSUS GG 1 CAPSULE. PO SCH ×2 (08:29→19:24)
[2020-09-14] MEDS: LIDOCAINE (700MG/PATCH) PATCH. TP SCH (08:34)
--- NOTE | 2020-09-14 11:07 | NUR ---
PSYCHOSOCIAL ASSESSMENT ADMISSION DATE: 09/11/20 CONTACT INFORMATION: DPOA/Guardian Contact Name: Shandra Heller Contact Phone #: [phone] ETHNIC ORIGIN: REASONS FOR ADMISSION: Aggressive Agitated Angry Combative Confusion/Disoriented Delusions Suicidal ideation ADDITIONAL ADMISSION COMMENTS: Per intake record, pt stated she wants to kill herself, yelling, threatening to hit others, name calling, insomnia, refusing cares, talking to son who isn't there. REASON FOR ADMISSION IN PATIENT/FAMILY'S OWN WORDS: Per Dtr-in-law/DPOA, Shandra, she believes that pt's UTI is the main contributing factor to her behaviors. Per Shandra, pt is generally pretty good at masking when she isn't feeling well. Her baseline, according to Shandra is that she will tell you she is fine and that she is generally complacent on how she is feeling. Shandra states that is is generally confused and this is normal. Shandra reports that pt has a significant history of ETOH and drug usage, that has most likely contributed to her overall health condition and confusion. PATIENT/FAMILY EXPECTATIONS FOR ADMISSION: Medication stabilization and UTI resolved, more cooperative with cares at living facility. LIVING SITUATION: Patient lives with: [facility] Other living arrangements: [facility] Contact Name: Khurram Contact Address: [address] [place] [address] Contact Phone #: [phone] Contact Fax #: [phone] FAMILY RELATIONS: Marital Status: # of Marriages: 2 # of Children: 1 [facility] Family Support: Concerned Cooperative Involved in DC Planning Additional Comments r/t Family: Pt has had two failed marriages. Her last divorce was around 1973. Pt did not again after that. Pt has one son, Sebastian, who is to Shandra. Shandra is pt's DPOA and Sebastian takes care of her financial matters. Per Shandra, pt has had a fairly rough life using ETOH and drugs. Shandra reports she and Sebastian's relationship with pt as cordial. Pt has no siblings. SIGNIFICANT PSYCHIATRIC/MEDICAL HISTORY: Psychiatric/Treatment History: None known. Pertinent Family History: None known. HISTORICAL DATA: Childhood Environment: Critical Rigid Stressful Childhood Environment Additional Comments: Pt grew up in [facility]. Her father was reportedly very siddiqui. When she was able to move out on her own, she moved to [place], [place]. 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 She was able to interview several [place] celebrities. service: N Taoist background: Was raised Hol[place], but when she moved to [place], she did not attend any particular orthodoxy. Since living at [facility], she occasionally attends their spiritual groups. Per Shandra, she attends for the social piece of it and not really the spirituality. Sexual orientation: Heterosexual Educational Level: Pt graduated in [place] and has the equivalence of a high school education. She did attend statistical secretary school in [place] following high school. Past/Present Interests/Hobbies: Writing and theater Financial support/resources: Social Security Monthly income: Unknown/Adequate Person handling finances: Son/Esbastian Do you have a history of legal problems: N Cultural considerations: From [place] SOCIAL RELATIONSHIPS-CURRENT/PAST: Psychiatrist: None PCP: Dr. Fuller Counselor/Therapist: None Veterans' Administration: None Support Group: None Sewage Screen Operator/Usability Specialist: None Other relationships: None STRENGTHS & WEAKNESSES: Patient's strengths: Good family support Good verbal skills Stable living arrange Financial support Other patient strengths: Patient's weaknesses: Impulsive Poor relationships Verbally Aggressive Other patient weaknesses: PRELIMINARY PLAN OF TREATMENT: Preliminary plan: Dec. Hallucination/Delus Medication Stabilization Monitor Med Effects Control abnormal behavior Dec. Outbursts Other preliminary treatment comments: While at [facility], pt will be encouraged to attend SW and recreational therapy groups. She will report any feelings of depression, anger, or agitation to medical staff. Further, pt will be monitored for any sign of delusions. DISCHARGE PLANNING: Discharge planning/disposition: Current Living Arrange. Additional discharge needs identified: None noted at this time. ADDITIONAL INFORMATION: Other Pertinent Data: Pt dtr-in-law/Shandra MACK, aware of pt admission to [facility] and is available should further information be needed.
--- NOTE | 2020-09-14 13:31 | TX PLAN ---
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 Per Shandra, pt is generally pretty good at masking when she isn't feeling well. Her baseling, according to Shandra is that she will tell you she is fine and that she is generally complacent on how she is feeling. Shandra states that is is generally confused and this is normal. Shandra reports that pt has a significant history of ETOH and drug usage, that has most likely contributed to her overall health condition and confusion. Additional Admission Comments: Per intake record, pt stated she wants to kill herself, yelling, threatening to hit others, name calling, insomnia, refusing cares, talking to son who isn't there. Problems Active Problems: lack of sleep, hallucinations, confusion, agitation Inactive Problems: None noted at this time. Pt Strengths/Limitations Ability for Center: Poor Cognitive Functioning/Ability: Poor Communication Skills/Ability: Fair Financial Resources: Fair Insight/Judgement: Poor Intellectual Ability: Fair Physical Health: Poor Social Skills: Fair Stability in Family: Fair Stability in School/Work: Fair Verbal Skills: Fair Discharge Criteria Discharge Criteria: Adequate arrangements @DC, Verbal commit med comply, I mproved behavior, Improved mood/thought Other Discharge Comments: None at this time. Preliminary Discharge Plan Preliminary DC Plan: Current Living Arrange. Special Precautions Special Precautions: Agitation/Assault Fall Risk: Moderate Initial D/C Plan Pt plan is to return to [facility]. Identified Discharge Needs: None noted at this time. Currently Utilized Resources Currently Utilized Resources/P: PCP-Dr. Jonny MACK/Oiy-ac-wxo-[facility] Referrals Community Resources: None noted at this time. Identified Problems/Hx/Goals Objectives/Short-Term Goals Short Term Goals: Control abnormal behavior, Dec. Hallucination/Delus, Dec. Outbursts, Medication Stabilization, Monitor Med Effects Short Term Goals in Patient's: Control delusions/hallucinations, reduce outbursts, stabilize medications to help improve mood. Interventions/Frequency Staff Interventions/Frequency&: Psychiatry to assess pt three times per week for medication management. Nursing to asses behaviors, monitor medications, and complete 15 minute checks daily. Social work to see pt at least two times weekly to aid in return to placement. Activities to encourage pt to participate in group activities daily. 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 She was able to interview several [place] celebrities. Education: Pt graduated in [place] and has the equivalence of a high school education. She did attend clerical secretary school in [place] following high school. Community Follow-up PCP Community Provider/Family Inpu: Dtr-incipriano/Christelle MACK, is aware of pt's hospitalization at [facility]. She provided social history and is available for further informatin if needed. 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
--- NOTE | 2020-09-14 14:11 | NUR ---
WEEKLY ACTIVITY THERAPY NOTE Date of Admission: 09/11/20 Date of AT Assessment: TBD Precipitating behaviors that initiated intake and admission: stated she wants to kill herself, yelling, threatening to hit others, name calling, insomnia, refusing cares, talking to son who's not there Goal aimed: TBD Initial Goal:TBD Weekly progress towards goal: NA Group participation level: NA Weekly highlights: arrived on [facility] Behaviors observed: Plan: meet/assess pt Beneficial adaptations:
--- NOTE | 2020-09-14 15:00 | NUR ---
ACTIVITY THERAPY ASSESSMENT completed based on notes, observation and interview.Pt was sitting in the day room watching TV. AT explained the groups offered on [facility] and pt appeared to be confused by the explanation. AT then asked pt what she likes to do and pt said "what in the hell" and then started to ramble off topic. Pt is hard to understand as she rambles word salad. Per notes pt likes writing and theater. In the assessment pt did mention something about tennis. Pt is oriented to name only and reports no stress at this time. Initial goal aimed to increase relaxation and time management skills. Pt will participate in at least three individual or group Activity Therapy sessions before discharge.
[2020-09-14 15:47] VITALS: BP 127/69
[2020-09-14] MEDS: MELATONIN 3 MG TABLET PO SCH (19:24)
[2020-09-14] MEDS: MIRTAZAPINE 7.5 MG TABLET. PO SCH (19:24)
[2020-09-14] MEDS: OLANZapine 5 MG TABLET PO SCH (19:25)
--- NOTE | 2020-09-14 21:54 | PDOC ---
Exam Note: Hasmukh Note: Please also refer to the separate dictated note~for this date of service dictated separately.~Patient seen individually. Discussed the patient with Nursing staff reviewed the chart.~Reviewed interim history and current functioning. Reviewed vital signs,~Labs/ Radiology~and current medications noted below. Continue current treatment with the changes noted in the dictated addendum note Assessment: Vital Signs/I&O: Vital Signs Date Time Temp Pulse Resp B/P (MAP) Pulse Ox O2 Delivery O2 Flow Rate FiO2 09/14/20 15:47 97.2 83 18 127/69 (88) 99 Room Air I & O 09/13/20 09/13/20 09/14/20 15:00 23:00 07:00 Intake Total 240 ml 120 ml Balance 240 ml 120 ml Labs: Laboratory Tests Test 09/14/20 07:35 Glucose (Fingerstick) 114 mg/dL (70-99) H Current Medications: Meds: Laboratory Tests Test 09/14/20 07:35 Glucose (Fingerstick) 114 mg/dL Current Medications Medications (Trade) Dose Ordered Sig/Jose Luis Route PRN Reason Start Time Stop Time Status Last Admin Dose Admin Acetaminophen (Tylenol) 650 mg PRN Q6HRS PRN PO MILD PAIN / TEMP > 100.3'F 09/11/20 16:15 Multi-Ingredient Ointment (Analgesic [place]) 1 maritza PRN QID PRN TP MUSCLE PAIN 09/11/20 16:15 Al Hydroxide/Mg Hydroxide (Mylanta Plus Xs) 15 ml PRN AFTMEALHC PRN PO DYSPEPSIA 09/11/20 16:15 Magnesium Hydroxide (Milk Of Magnesia) 2,400 mg PRN QHS PRN PO CONSTIPATION 09/11/20 16:15 Acetaminophen (Tylenol) 1,000 mg TID PO 09/11/20 21:00 09/14/20 19:25 Amlodipine Besylate (Norvasc) 5 mg DAILY PO 09/12/20 09:00 09/14/20 08:29 Vitamin D (Vitamin D3) 50,000 unit WEEKLY PO 09/16/20 09:00 Lactobacillus Rhamnosus (Culturelle) 1 cap BID PO 09/11/20 21:00 09/14/20 19:24 Lidocaine (Lidoderm) 1 patch DAILY TP 09/12/20 09:00 4/25/21 08:19 Metformin HCl (Glucophage) 500 mg DAILYWBKFT PO 09/12/20 08:00 09/14/20 08:29 Olanzapine (ZyPREXA) 2.5 mg PRN Q4HRS PRN PO ANXIETY 09/11/20 16:15 09/12/20 22:16 Olanzapine (ZyPREXA) 5 mg QHS PO 09/11/20 21:00 09/14/20 19:25 Vitamin D (Vitamin D3) 1,000 unit DAILY PO 09/12/20 09:00 09/14/20 08:29 Cefdinir (Omnicef) 300 mg BID PO 09/12/20 09:00 09/16/20 21:01 09/14/20 19:24 Mirtazapine (Remeron) 7.5 mg QHS PO 09/12/20 21:00 09/14/20 19:24 Trazodone HCl (Desyrel) 50 mg PRN QHS PRN PO INSOMNIA 09/12/20 18:15 09/13/20 22:14 Melatonin (Melatonin) 3 mg HS PO 09/13/20 21:00 09/14/20 19:24 I have reviewed the current psychotropics carefully including drug interactions. Risk benefit ratio favors no change other than as noted in my dictated progress note. Diagnosis: Problems: (1) Anxiety disorder, unspecified (2) Major neurocognitive disorder (3) Dementia, vascular, with depression (4) Dementia, vascular, with delusions (5) Dementia in Alzheimer's disease with depression (6) Dementia in Alzheimer's disease with delusions (7) Dementia in Alzheimer's disease with early onset with behavioral disturbance (8) Impulse control disorder FIDELINA GARCIA MD Sep 14, 2020 21:54
[2020-09-14] MEDS: traZODone 50 MG TABLET. PO PRN (22:43)
[2020-09-14] MEDS: OLANZapine 2.5 MG TABLET PO PRN (22:43)
--- NOTE | 2020-09-15 01:04 | NUR ---
Pt remains very confused tonight. She took meds whole without difficulty. She has been cooperative with cares and still yells at times when assisted. After going to bed she remained awake and restless. PRN trazodone and zydis have been given and she remains awake.
[2020-09-15 06:21] VITALS: BP 142/85
[2020-09-15] MEDS: CHOLECALCIFEROL (VITAMIN D3) 1,000 UNIT TABLET PO SCH (08:08)
[2020-09-15] MEDS: CEFDINIR 300 MG CAPSULE PO SCH ×2 (08:08→20:14)
[2020-09-15] MEDS: ACETAMINOPHEN 500 MG TABLET PO SCH ×3 (08:09→20:14)
[2020-09-15] MEDS: metFORMIN 500 MG TABLET PO SCH (08:09)
[2020-09-15] MEDS: LACTOBACILLUS RHAMNOSUS GG 1 CAPSULE. PO SCH ×2 (08:09→20:14)
[2020-09-15] MEDS: amLODIPine BESYLATE 5 MG TABLET PO SCH (08:09)
[2020-09-15] MEDS: LIDOCAINE (700MG/PATCH) PATCH. TP SCH (08:09)
--- NOTE | 2020-09-15 09:57 | NUR ---
NSG NOTE; HX CHRONIC RIGHT HIP PAIN TAKES SCHED TYLENOL TID BUT STATES NO PAIN THIS AM SO REFUSED LIDODERM PATCH
--- NOTE | 2020-09-15 13:59 | NUR ---
NSG NOTE; CALM AND COOPERATIVE TODAY WITH MED COMPLIANCE WITH CRUSHED MEDS IN [place], FED TO HER IN TWO BITES. SHE HAS STAYED IN THE DAYROOM BETWEEN MEALS. SHE IS CONFUSED AND RAMBLES WITHOUT MAKING SENSE. SHE IS ABLE TO FOLLOW SHORT DIRECTIONS.
[2020-09-15 15:15] VITALS: BP 116/67
[2020-09-15] MEDS: traZODone 50 MG TABLET. PO PRN (20:13)
[2020-09-15] MEDS: MELATONIN 3 MG TABLET PO SCH (20:14)
[2020-09-15] MEDS: MIRTAZAPINE 7.5 MG TABLET. PO SCH (20:14)
--- NOTE | 2020-09-15 21:46 | PDOC ---
Exam Note: Hasmukh Note: Please also refer to the separate dictated note~for this date of service dictated separately.~Patient seen individually. Discussed the patient with Nursing staff reviewed the chart.~Reviewed interim history and current functioning. Reviewed vital signs,~Labs/ Radiology~and current medications noted below. Continue current treatment with the changes noted in the dictated addendum note Assessment: Vital Signs/I&O: Vital Signs Date Time Temp Pulse Resp B/P (MAP) Pulse Ox O2 Delivery O2 Flow Rate FiO2 09/15/20 15:15 98.1 93 20 116/67 (83) 98 09/15/20 06:21 Room Air I & O 09/14/20 09/14/20 09/15/20 15:00 23:00 07:00 Intake Total 580 ml 241 ml Balance 580 ml 241 ml Labs: Laboratory Tests Test 09/15/20 07:44 Glucose (Fingerstick) 106 mg/dL (70-99) H Current Medications: Meds: Laboratory Tests Test 09/15/20 07:44 Glucose (Fingerstick) 106 mg/dL Current Medications Medications (Trade) Dose Ordered Sig/Jose Luis Route PRN Reason Start Time Stop Time Status Last Admin Dose Admin Acetaminophen (Tylenol) 650 mg PRN Q6HRS PRN PO MILD PAIN / TEMP > 100.3'F 09/11/20 16:15 Multi-Ingredient Ointment (Analgesic [place]) 1 maritza PRN QID PRN TP MUSCLE PAIN 09/11/20 16:15 Al Hydroxide/Mg Hydroxide (Mylanta Plus Xs) 15 ml PRN AFTMEALHC PRN PO DYSPEPSIA 09/11/20 16:15 Magnesium Hydroxide (Milk Of Magnesia) 2,400 mg PRN QHS PRN PO CONSTIPATION 09/11/20 16:15 Acetaminophen (Tylenol) 1,000 mg TID PO 09/11/20 21:00 09/15/20 20:14 Amlodipine Besylate (Norvasc) 5 mg DAILY PO 09/12/20 09:00 09/15/20 08:09 Vitamin D (Vitamin D3) 50,000 unit WEEKLY PO 09/16/20 09:00 Lactobacillus Rhamnosus (Culturelle) 1 cap BID PO 09/11/20 21:00 09/15/20 20:14 Lidocaine (Lidoderm) 1 patch DAILY TP 09/12/20 09:00 09/13/20 08:19 Metformin HCl (Glucophage) 500 mg DAILYWBKFT PO 09/12/20 08:00 09/15/20 08:09 Olanzapine (ZyPREXA) 2.5 mg PRN Q4HRS PRN PO ANXIETY 09/11/20 16:15 09/14/20 22:43 Olanzapine (ZyPREXA) 5 mg QHS PO 09/11/20 21:00 09/15/20 17:07 DC 09/14/20 19:25 Vitamin D (Vitamin D3) 1,000 unit DAILY PO 09/12/20 09:00 09/15/20 08:08 Cefdinir (Omnicef) 300 mg BID PO 09/12/20 09:00 09/16/20 21:01 09/15/20 20:14 Mirtazapine (Remeron) 7.5 mg QHS PO 09/12/20 21:00 09/15/20 20:14 Trazodone HCl (Desyrel) 50 mg PRN QHS PRN PO INSOMNIA 09/12/20 18:15 09/15/20 20:13 Melatonin (Melatonin) 3 mg HS PO 09/13/20 21:00 09/15/20 20:14 Quetiapine Fumarate (SEROquel) 12.5 mg 0900,1300,1700 PO 09/16/20 17:15 I have reviewed the current psychotropics carefully including drug interactions. Risk benefit ratio favors no change other than as noted in my dictated progress note. 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
--- NOTE | 2020-09-15 22:48 | NUR ---
Pt sitting up in WC, socializing with peers when approached for assessment. Pt compliant with meds whole. A/O self only, pleasantly confused. Pt somewhat labile with cares. Pt complied with readying for HS but after approx. 20 minutes, pt got herself out of bed and into WC without assistance, sounding alarm. When approached by staff and assisted back to bed, pt irritable and telling staff to "just shut up." Pt apologetic when redirected.
[2020-09-16 05:46] VITALS: BP 137/81
--- NOTE | 2020-09-16 06:33 | PDOC ---
Exam Note: Hasmukh Note: This note is a late entry for 09/14/2020 covers elements not covered in my initial note. Subjective: The patient was reviewed in the morning of 09/14/2020 for a treatment team meeting with Koki Rao, Ju Navarrete and Ela (social worker aide), Damaris, activity therapy and Steffanie XIE, discussed and reviewed the chart. She slept 7 hours previous night. Reviewed patients history at length. She was born and raised in [facility], still has [place] accent. She seems to have some memories of that time but nothing detailed. Reportedly she has been twice, has one son. She has a past history of living in [place] and history of drug and alcohol abuse in the past. 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 At times she has had some visual hallucinations. Per Felipe XIE she is doing better in the evening. At times she is weight. She slept from 2 p.m. to 8 p.m. and all night. Review of Systems: No CV, , pulmonary, eye, ENT system symptoms on review. Mental Status Exam: The patient is oriented to herself. Insight and judgment, recent and remote memory, attention and concentration, fund of knowledge is poor consistent with her diagnoses. Laboratory Data: Reviewed. Impression: Major neurocognitive disorder Alzheimer vascular with delusion, depression, behavioral disturbance. Anxiety disorder unspecified. Impulse control disorder unspecified. Plan: Continue psychotropics from initial note. We may consider SSRIs or we will wait for baseline assessment and then decide. Assessment: Vital Signs/I&O: Vital Signs Date Time Temp Pulse Resp B/P (MAP) Pulse Ox O2 Delivery O2 Flow Rate FiO2 09/16/20 05:46 98.3 60 18 137/81 (99) 96 Room Air I & O 09/15/20 09/15/20 09/16/20 14:59 22:59 06:59 Intake Total 560 ml 240 ml 120 ml Balance 560 ml 240 ml 120 ml Labs: Laboratory Tests Test 09/15/20 07:44 Glucose (Fingerstick) 106 mg/dL (70-99) H Current Medications: Meds: Laboratory Tests Test 09/15/20 07:44 Glucose (Fingerstick) 106 mg/dL Current Medications Medications (Trade) Dose Ordered Sig/Jose Luis Route PRN Reason Start Time Stop Time Status Last Admin Dose Admin Acetaminophen (Tylenol) 650 mg PRN Q6HRS PRN PO MILD PAIN / TEMP > 100.3'F 09/11/20 16:15 Multi-Ingredient Ointment (Analgesic [place]) 1 maritza PRN QID PRN TP MUSCLE PAIN 09/11/20 16:15 Al Hydroxide/Mg Hydroxide (Mylanta Plus Xs) 15 ml PRN AFTMEALHC PRN PO DYSPEPSIA 09/11/20 16:15 Magnesium Hydroxide (Milk Of Magnesia) 2,400 mg PRN QHS PRN PO CONSTIPATION 09/11/20 16:15 Acetaminophen (Tylenol) 1,000 mg TID PO 09/11/20 21:00 09/15/20 20:14 Amlodipine Besylate (Norvasc) 5 mg DAILY PO 09/12/20 09:00 09/15/20 08:09 Vitamin D (Vitamin D3) 50,000 unit WEEKLY PO 09/16/20 09:00 Lactobacillus Rhamnosus (Culturelle) 1 cap BID PO 09/11/20 21:00 09/15/20 20:14 Lidocaine (Lidoderm) 1 patch DAILY TP 09/12/20 09:00 09/13/20 08:19 Metformin HCl (Glucophage) 500 mg DAILYWBKFT PO 09/12/20 08:00 09/15/20 08:09 Olanzapine (ZyPREXA) 2.5 mg PRN Q4HRS PRN PO ANXIETY 09/11/20 16:15 09/14/20 22:43 Olanzapine (ZyPREXA) 5 mg QHS PO 09/11/20 21:00 09/15/20 17:07 DC 09/14/20 19:25 Vitamin D (Vitamin D3) 1,000 unit DAILY PO 09/12/20 09:00 09/15/20 08:08 Cefdinir (Omnicef) 300 mg BID PO 09/12/20 09:00 09/16/20 21:01 09/15/20 20:14 Mirtazapine (Remeron) 7.5 mg QHS PO 09/12/20 21:00 09/15/20 20:14 Trazodone HCl (Desyrel) 50 mg PRN QHS PRN PO INSOMNIA 09/12/20 18:15 09/15/20 20:13 Melatonin (Melatonin) 3 mg HS PO 09/13/20 21:00 09/15/20 20:14 Quetiapine Fumarate (SEROquel) 12.5 mg 0900,1300,1700 PO 09/16/20 17:15 I have reviewed the current psychotropics carefully including drug interactions. Risk benefit ratio favors no change other than as noted in my dictated progress note. 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
--- NOTE | 2020-09-16 07:06 | PDOC ---
Exam Note: Hasmukh Note: This note is a late entry for 09/15/2020 covers elements not covered in my initial note. Subjective: The patient was seen individually in the evening of 09/15/2020 with Steffanie XIE, discussed and reviewed the chart. She slept 5 hours previous night. She remains confused. We talked about her being born and raised in [facility] and she seemed to remember parts of this. She takes her meds in pudding. Nursing staff had discussed the patient with her daughter. The daughter is convinced that the UTI is what set off the behaviors. Nevertheless the patient remains somewhat anxious, restless. Review of Systems: No CV, , pulmonary, eye, ENT system symptoms on review. Mental Status Exam: The patient is oriented to herself. Insight and judgment, recent and remote memory, attention and concentration, fund of knowledge is poor consistent with her diagnoses. Laboratory Data: Reviewed. Impression: Major neurocognitive disorder Alzheimer vascular with delusion, depression, behavioral disturbance. Anxiety disorder unspecified. Impulse control disorder unspecified. Plan: Continue psychotropics from initial note. We will change the Zyprexa 5 mg h.s. to Seroquel 12.5 mg 9 a.m., 1 p.m. and 5 p.m. Assessment: Vital Signs/I&O: Vital Signs Date Time Temp Pulse Resp B/P (MAP) Pulse Ox O2 Delivery O2 Flow Rate FiO2 09/16/20 05:46 98.3 60 18 137/81 (99) 96 Room Air I & O 09/15/20 09/15/20 09/16/20 15:00 23:00 07:00 Intake Total 560 ml 240 ml 120 ml Balance 560 ml 240 ml 120 ml Labs: Laboratory Tests Test 09/15/20 07:44 Glucose (Fingerstick) 106 mg/dL (70-99) H Current Medications: Meds: Laboratory Tests Test 09/15/20 07:44 Glucose (Fingerstick) 106 mg/dL Current Medications Medications (Trade) Dose Ordered Sig/Jose Luis Route PRN Reason Start Time Stop Time Status Last Admin Dose Admin Acetaminophen (Tylenol) 650 mg PRN Q6HRS PRN PO MILD PAIN / TEMP > 100.3'F 09/11/20 16:15 Multi-Ingredient Ointment (Analgesic [place]) 1 maritza PRN QID PRN TP MUSCLE PAIN 09/11/20 16:15 Al Hydroxide/Mg Hydroxide (Mylanta Plus Xs) 15 ml PRN AFTMEALHC PRN PO DYSPEPSIA 09/11/20 16:15 Magnesium Hydroxide (Milk Of Magnesia) 2,400 mg PRN QHS PRN PO CONSTIPATION 09/11/20 16:15 Acetaminophen (Tylenol) 1,000 mg TID PO 09/11/20 21:00 09/15/20 20:14 Amlodipine Besylate (Norvasc) 5 mg DAILY PO 09/12/20 09:00 09/15/20 08:09 Vitamin D (Vitamin D3) 50,000 unit WEEKLY PO 09/16/20 09:00 Lactobacillus Rhamnosus (Culturelle) 1 cap BID PO 09/11/20 21:00 09/15/20 20:14 Lidocaine (Lidoderm) 1 patch DAILY TP 09/12/20 09:00 09/13/20 08:19 Metformin HCl (Glucophage) 500 mg DAILYWBKFT PO 09/12/20 08:00 09/15/20 08:09 Olanzapine (ZyPREXA) 2.5 mg PRN Q4HRS PRN PO ANXIETY 09/11/20 16:15 09/14/20 22:43 Olanzapine (ZyPREXA) 5 mg QHS PO 09/11/20 21:00 09/15/20 17:07 DC 09/14/20 19:25 Vitamin D (Vitamin D3) 1,000 unit DAILY PO 09/12/20 09:00 09/15/20 08:08 Cefdinir (Omnicef) 300 mg BID PO 09/12/20 09:00 09/16/20 21:01 09/15/20 20:14 Mirtazapine (Remeron) 7.5 mg QHS PO 09/12/20 21:00 09/15/20 20:14 Trazodone HCl (Desyrel) 50 mg PRN QHS PRN PO INSOMNIA 09/12/20 18:15 09/15/20 20:13 Melatonin (Melatonin) 3 mg HS PO 09/13/20 21:00 09/15/20 20:14 Quetiapine Fumarate (SEROquel) 12.5 mg 0900,1300,1700 PO 09/16/20 17:15 I have reviewed the current psychotropics carefully including drug interactions. Risk benefit ratio favors no change other than as noted in my dictated progress note. 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
[2020-09-16] MEDS: LIDOCAINE (700MG/PATCH) PATCH. TP SCH (08:04)
[2020-09-16] MEDS: CHOLECALCIFEROL (VITAMIN D3) 1,000 UNIT TABLET PO SCH (08:05)
[2020-09-16] MEDS: LACTOBACILLUS RHAMNOSUS GG 1 CAPSULE. PO SCH ×2 (08:06→20:05)
[2020-09-16] MEDS: CEFDINIR 300 MG CAPSULE PO SCH ×2 (08:06→20:05)
[2020-09-16] MEDS: ACETAMINOPHEN 500 MG TABLET PO SCH ×3 (08:06→20:05)
[2020-09-16] MEDS: amLODIPine BESYLATE 5 MG TABLET PO SCH (08:06)
[2020-09-16] MEDS: CHOLECALCIFEROL (VITAMIN D3) 50,000 UNIT CAPSULE PO SCH (08:06)
[2020-09-16] MEDS: metFORMIN 500 MG TABLET PO SCH (08:06)
--- NOTE | 2020-09-16 13:57 | NUR ---
Shift Summary Patient was not compliant with med pass this morning as she spat out meds and tried to swipe medication cup from this nurse. Patient cooperative with medications afterwards. Patient rambling not making sense during assessment, compliant with cares.
[2020-09-16 15:54] VITALS: BP 121/76
[2020-09-16] MEDS: QUEtiapine 25 MG TABLET. PO SCH (17:27)
--- NOTE | 2020-09-16 17:51 | NUR ---
Update Patient woke up from afternoon nap, strip clothing, and had a bowel movement in bed/sheets and on floor. Medications updated per .
[2020-09-16] MEDS: MELATONIN 3 MG TABLET PO SCH (20:06)
[2020-09-16] MEDS: MIRTAZAPINE 15 MG TABLET PO SCH (20:06)
--- NOTE | 2020-09-16 21:55 | PDOC ---
Exam Note: Hasmukh Note: Please also refer to the separate dictated note~for this date of service dictated separately.~Patient seen individually. Discussed the patient with Nursing staff reviewed the chart.~Reviewed interim history and current functioning. Reviewed vital signs,~Labs/ Radiology~and current medications noted below. Continue current treatment with the changes noted in the dictated addendum note Assessment: Vital Signs/I&O: Vital Signs Date Time Temp Pulse Resp B/P (MAP) Pulse Ox O2 Delivery O2 Flow Rate FiO2 09/16/20 15:54 97.1 96 16 121/76 (91) 97 09/16/20 05:46 Room Air I & O 09/15/20 09/15/20 09/16/20 15:00 23:00 07:00 Intake Total 560 ml 240 ml 120 ml Balance 560 ml 240 ml 120 ml Labs: Laboratory Tests Test 09/16/20 07:50 Glucose (Fingerstick) 114 mg/dL (70-99) H Current Medications: Meds: Laboratory Tests Test 09/16/20 07:50 Glucose (Fingerstick) 114 mg/dL Current Medications Medications (Trade) Dose Ordered Sig/Joes Luis Route PRN Reason Start Time Stop Time Status Last Admin Dose Admin Acetaminophen (Tylenol) 650 mg PRN Q6HRS PRN PO MILD PAIN / TEMP > 100.3'F 09/11/20 16:15 Multi-Ingredient Ointment (Analgesic [place]) 1 maritza PRN QID PRN TP MUSCLE PAIN 09/11/20 16:15 Al Hydroxide/Mg Hydroxide (Mylanta Plus Xs) 15 ml PRN AFTMEALHC PRN PO DYSPEPSIA 09/11/20 16:15 Magnesium Hydroxide (Milk Of Magnesia) 2,400 mg PRN QHS PRN PO CONSTIPATION 09/11/20 16:15 Acetaminophen (Tylenol) 1,000 mg TID PO 09/11/20 21:00 09/16/20 20:05 Amlodipine Besylate (Norvasc) 5 mg DAILY PO 09/12/20 09:00 09/16/20 08:06 Vitamin D (Vitamin D3) 50,000 unit WEEKLY PO 09/16/20 09:00 09/16/20 08:06 Lactobacillus Rhamnosus (Culturelle) 1 cap BID PO 09/11/20 21:00 09/16/20 20:05 Lidocaine (Lidoderm) 1 patch DAILY TP 09/12/20 09:00 09/16/20 08:04 Metformin HCl (Glucophage) 500 mg DAILYWBKFT PO 09/12/20 08:00 09/16/20 08:06 Olanzapine (ZyPREXA) 2.5 mg PRN Q4HRS PRN PO ANXIETY 09/11/20 16:15 09/14/20 22:43 Olanzapine (ZyPREXA) 5 mg QHS PO 09/11/20 21:00 09/15/20 17:07 DC 09/14/20 19:25 Vitamin D (Vitamin D3) 1,000 unit DAILY PO 09/12/20 09:00 09/16/20 08:05 Cefdinir (Omnicef) 300 mg BID PO 09/12/20 09:00 09/16/20 21:01 DC 09/16/20 20:05 Mirtazapine (Remeron) 7.5 mg QHS PO 09/12/20 21:00 09/16/20 17:59 DC 09/15/20 20:14 Trazodone HCl (Desyrel) 50 mg PRN QHS PRN PO INSOMNIA 09/12/20 18:15 09/15/20 20:13 Melatonin (Melatonin) 3 mg HS PO 09/13/20 21:00 09/16/20 20:06 Quetiapine Fumarate (SEROquel) 12.5 mg 0900,1300,1700 PO 09/16/20 17:15 09/16/20 17:27 Mirtazapine (Remeron) 15 mg QHS PO 09/16/20 21:00 09/16/20 20:06 Sertraline HCl (Zoloft) 25 mg DAILY PO 09/17/20 09:00 09/20/20 08:59 Sertraline HCl (Zoloft) 50 mg DAILY PO 09/20/20 09:00 Current Medications Medications (Trade) Dose Ordered Sig/Jose Luis Route PRN Reason Start Time Stop Time Status Last Admin Dose Admin Vitamin D (Vitamin D3) 50,000 unit WEEKLY PO 09/16/20 09:00 09/16/20 08:06 Quetiapine Fumarate (SEROquel) 12.5 mg 0900,1300,1700 PO 09/16/20 17:15 09/16/20 17:27 Mirtazapine (Remeron) 15 mg QHS PO 09/16/20 21:00 09/16/20 20:06 I have reviewed the current psychotropics carefully including drug interactions. Risk benefit ratio favors no change other than as noted in my dictated progress note. 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
--- NOTE | 2020-09-16 22:46 | NUR ---
Pt has been calmer tonight and less restless she has been sleeping since going to bed. HS meds were crushed in applesauce which she took then spit some out saying it tasted bad. She remains very confused only able to give name and
[2020-09-17 05:56] VITALS: BP 108/63
[2020-09-17] MEDS: amLODIPine BESYLATE 5 MG TABLET PO SCH (08:14)
[2020-09-17] MEDS: CHOLECALCIFEROL (VITAMIN D3) 1,000 UNIT TABLET PO SCH (08:14)
[2020-09-17] MEDS: ACETAMINOPHEN 500 MG TABLET PO SCH ×3 (08:14→20:34)
[2020-09-17] MEDS: LACTOBACILLUS RHAMNOSUS GG 1 CAPSULE. PO SCH ×2 (08:14→20:34)
[2020-09-17] MEDS: QUEtiapine 25 MG TABLET. PO SCH ×3 (08:14→17:03)
[2020-09-17] MEDS: SERTRALINE 25 MG TABLET. PO SCH (08:14)
[2020-09-17] MEDS: metFORMIN 500 MG TABLET PO SCH (08:14)
[2020-09-17] MEDS: LIDOCAINE (700MG/PATCH) PATCH. TP SCH (09:00)
--- NOTE | 2020-09-17 10:35 | NUR ---
Pt cooperative with assessment and medications crushed and mixed in pudding. She remains confused and forgetful; A&O to self only. She is absent of SI/HI behaviors, appears absent of VH/AH at this time. She is able to make her needs known to staff and denies pain at this time. Plan of care continues, will pass on to next shift.
--- NOTE | 2020-09-17 12:10 | NUR ---
SHARRON spoke with pt dtr-in-law/DPOA, Shandra. SHARRON provided update for Shandra. Shandra wanted to make sure that SHARRON passed along to staff that pt has always been a night owl and she was notorious for staying up and watching television till 0300. So, her not sleeping well, does not necessarily surprise her. Further, Shandra states that pt's baseline prior to being hospitalized was that she was mostly compliant with medication and cares at her facility. Shandra, also, states that pt's baseline is that she is mostly only A/O to self only. On her birthday, however, when they were celebrating, it wasn't even registering with Marlene that they were celebrating her birthday. Shandra felt like this was probably d/t the UTI. Shandra believes that pt will remember things like and that she was born in [place]. Shandra states that she and her /pt son will probably schedule a visit next sometime next week. SHARRON and Shandra agreed to talk again the beginning of next week. SHARRON sent faxed updates to pt facility, [facility].
[2020-09-17] MEDS: OLANZapine 2.5 MG TABLET PO PRN ×3 (13:32→22:33)
--- NOTE | 2020-09-17 13:39 | NUR ---
Pt increasing in anxiety and fixation over the location of her purse. She is not receptive to explanation of the wherabouts (it's locked in a safe so it can't be lost/stolen, only one person can access it, no one can get the purse, you (pt) will get it when you leave). Pt is repetitive with her inquiries to the purse. PRN Zyprexa 2.5 mg PO administered for anxiety.
--- NOTE | 2020-09-17 15:10 | NUR ---
Order given by Dr Vera to d/c accuchecks d/t pt's A1C on 09/12/20 begin 5.9 and pt not on current orders for insulin
[2020-09-17] MEDS: hydrOXYzine HCL 25 MG TABLET PO PRN ×2 (16:12→22:33)
--- NOTE | 2020-09-17 16:13 | NUR ---
Pt remains hyperfixation and obsessive concerning her belongings which are secured in a safe. She is unable to be redirected; she keeps repeating the same question without stopping and proceeds to hit her hands against the nurse station window. Pt is unable to be administered another PRN dose of Zyprexa d/t Q4HPRN frequency of order. Dr Harshil darby and the following orders were given: change PRN Zyprexa order to Q2HPRN, start Hydroxyzine 25 mg TID PRN for anxiety. Orders read back and verified. PRN Zyprexa 2.5 mg and PRN Hydroxyzine 25 mg PO administered without difficulty.
[2020-09-17 17:50] VITALS: BP 113/72
[2020-09-17] MEDS: MIRTAZAPINE 15 MG TABLET PO SCH (20:34)
[2020-09-17] MEDS: MELATONIN 3 MG TABLET PO SCH (20:34)
--- NOTE | 2020-09-17 21:57 | PDOC ---
Exam Note: Hasmukh Note: Please also refer to the separate dictated note~for this date of service dictated separately.~Patient seen individually. Discussed the patient with Nursing staff reviewed the chart.~Reviewed interim history and current functioning. Reviewed vital signs,~Labs/ Radiology~and current medications noted below. Continue current treatment with the changes noted in the dictated addendum note Assessment: Vital Signs/I&O: Vital Signs Date Time Temp Pulse Resp B/P (MAP) Pulse Ox O2 Delivery O2 Flow Rate FiO2 09/17/20 17:50 98.1 92 20 113/72 (86) 97 09/16/20 05:46 Room Air I & O 09/16/20 09/16/20 09/17/20 14:59 22:59 06:59 Intake Total 600 ml 220 ml 120 ml Balance 600 ml 220 ml 120 ml Labs: Laboratory Tests Test 09/17/20 07:53 Glucose (Fingerstick) 100 mg/dL (70-99) H Current Medications: Meds: Laboratory Tests Test 09/17/20 07:53 Glucose (Fingerstick) 100 mg/dL Current Medications Medications (Trade) Dose Ordered Sig/Jose Luis Route PRN Reason Start Time Stop Time Status Last Admin Dose Admin Acetaminophen (Tylenol) 650 mg PRN Q6HRS PRN PO MILD PAIN / TEMP > 100.3'F 09/11/20 16:15 Multi-Ingredient Ointment (Analgesic [place]) 1 maritza PRN QID PRN TP MUSCLE PAIN 09/11/20 16:15 Al Hydroxide/Mg Hydroxide (Mylanta Plus Xs) 15 ml PRN AFTMEALHC PRN PO DYSPEPSIA 09/11/20 16:15 Magnesium Hydroxide (Milk Of Magnesia) 2,400 mg PRN QHS PRN PO CONSTIPATION 09/11/20 16:15 Acetaminophen (Tylenol) 1,000 mg TID PO 09/11/20 21:00 09/17/20 20:34 Amlodipine Besylate (Norvasc) 5 mg DAILY PO 09/12/20 09:00 09/17/20 08:14 Vitamin D (Vitamin D3) 50,000 unit WEEKLY PO 09/16/20 09:00 09/16/20 08:06 Lactobacillus Rhamnosus (Culturelle) 1 cap BID PO 09/11/20 21:00 09/17/20 20:34 Lidocaine (Lidoderm) 1 patch DAILY TP 09/12/20 09:00 09/16/20 08:04 Metformin HCl (Glucophage) 500 mg DAILYWBKFT PO 09/12/20 08:00 09/17/20 08:14 Olanzapine (ZyPREXA) 2.5 mg PRN Q4HRS PRN PO ANXIETY 09/11/20 16:15 09/17/20 15:45 DC 09/17/20 13:32 Olanzapine (ZyPREXA) 5 mg QHS PO 09/11/20 21:00 09/15/20 17:07 DC 09/14/20 19:25 Vitamin D (Vitamin D3) 1,000 unit DAILY PO 09/12/20 09:00 09/17/20 08:14 Cefdinir (Omnicef) 300 mg BID PO 09/12/20 09:00 09/16/20 21:01 DC 09/16/20 20:05 Mirtazapine (Remeron) 7.5 mg QHS PO 09/12/20 21:00 09/16/20 17:59 DC 09/15/20 20:14 Trazodone HCl (Desyrel) 50 mg PRN QHS PRN PO INSOMNIA 09/12/20 18:15 09/15/20 20:13 Melatonin (Melatonin) 3 mg HS PO 09/13/20 21:00 09/17/20 20:34 Quetiapine Fumarate (SEROquel) 12.5 mg 0900,1300,1700 PO 09/16/20 17:15 09/17/20 17:03 Mirtazapine (Remeron) 15 mg QHS PO 09/16/20 21:00 09/17/20 20:34 Sertraline HCl (Zoloft) 25 mg DAILY PO 09/17/20 09:00 09/20/20 08:59 09/17/20 08:14 Sertraline HCl (Zoloft) 50 mg DAILY PO 09/20/20 09:00 Olanzapine (ZyPREXA) 2.5 mg PRN Q2HR PRN PO ANXIETY 09/17/20 15:45 09/17/20 16:12 Hydroxyzine HCl (Atarax) 25 mg TID PRN PRN PO ITCHING 09/17/20 15:45 09/17/20 16:12 Current Medications Medications (Trade) Dose Ordered Sig/Jose Luis Route PRN Reason Start Time Stop Time Status Last Admin Dose Admin Sertraline HCl (Zoloft) 25 mg DAILY PO 09/17/20 09:00 09/20/20 08:59 09/17/20 08:14 Olanzapine (ZyPREXA) 2.5 mg PRN Q2HR PRN PO ANXIETY 09/17/20 15:45 09/17/20 16:12 Hydroxyzine HCl (Atarax) 25 mg TID PRN PRN PO ITCHING 09/17/20 15:45 09/17/20 16:12 I have reviewed the current psychotropics carefully including drug interactions. Risk benefit ratio favors no change other than as noted in my dictated progress note. 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
[2020-09-17] MEDS: traZODone 50 MG TABLET. PO PRN (22:33)
--- NOTE | 2020-09-18 00:18 | NUR ---
Patient is very disorganized. She is oriented only to self and has no idea where she is. At one point she thought she was in [place] with a man. Patient was yelling out when staff was attempting to assist her to the bathroom and helping clean her aysha area from incontinent episode. Patient awakening roommate and disturbing others. Patient attempting to get out of bed unassisted and hitting at staff when she is redirected. Patient taken to day room at around 2200 so staff could monitor her closely and prevent her from falling due to her impulsivity. Patient continually trying to get out of the east day room door and refusing to be redirected, yelling at staff and speaking non-sense in response to questions. PRN zyprexa and atarax given for agitation and PRN trazodone given for insomnia at 2230. Patient became calmer and was then assisted to bed at around 2300 and has remained there since that time. She appears to be sleeping when checked.
[2020-09-18 05:58] VITALS: BP 146/73
[2020-09-18] MEDS: metFORMIN 500 MG TABLET PO SCH (08:28)
[2020-09-18] MEDS: SERTRALINE 25 MG TABLET. PO SCH (08:28)
[2020-09-18] MEDS: amLODIPine BESYLATE 5 MG TABLET PO SCH (08:28)
[2020-09-18] MEDS: CHOLECALCIFEROL (VITAMIN D3) 1,000 UNIT TABLET PO SCH (08:28)
[2020-09-18] MEDS: ACETAMINOPHEN 500 MG TABLET PO SCH ×3 (08:29→20:04)
[2020-09-18] MEDS: LACTOBACILLUS RHAMNOSUS GG 1 CAPSULE. PO SCH ×2 (08:29→20:04)
[2020-09-18] MEDS: QUEtiapine 25 MG TABLET. PO SCH ×3 (09:00→16:17)
[2020-09-18] MEDS: LIDOCAINE (700MG/PATCH) PATCH. TP SCH (09:00)
--- NOTE | 2020-09-18 09:04 | NUR ---
Pt disorganized and confused, A&O to self only. She is compliant with medications crushed and mixed in pudding. She is able to make her needs known to staff. Absent of VH/AH/delusions thus far. She denies pain and her interactions with others have been appropriate. Communication with pt is difficult d/t combination of her difficulty hearing and her mumbling speech which is accentuated by a thick [place] accent. Pt has been absent of behaviors which require immediate intervention so far. cnc machinist 2nd shift reports effectiveness of PRN Zyprexa and PRN Hydroxyzine on pt's anxiety and agitation when administered together. Plan of care continues, will pass on to next shift.
[2020-09-18 15:48] VITALS: BP 136/75
[2020-09-18] MEDS: hydrOXYzine HCL 25 MG TABLET PO PRN (17:03)
[2020-09-18] MEDS: OLANZapine 2.5 MG TABLET PO PRN (17:03)
--- NOTE | 2020-09-18 17:04 | NUR ---
Pt began to obsessively fixate on the location of her purse and obtaining it. Explanation of the location of her purse did not reduce anxiety; pt began to ask multiple staff members to bring her the purse. Verbal redirection unsuccessful. Pt began to yell, sob loudly, and hit the windows of the nurse station. PRN Zyprexa 2.5 mg PO and PRN Hydroxyzine 25 mg PO administered
[2020-09-18] MEDS: MELATONIN 3 MG TABLET PO SCH (20:04)
[2020-09-18] MEDS: MIRTAZAPINE 15 MG TABLET PO SCH (20:04)
--- NOTE | 2020-09-18 22:10 | PDOC ---
Exam Note: Hasmukh Note: Please also refer to the separate dictated note~for this date of service dictated separately.~Patient seen individually. Discussed the patient with Nursing staff reviewed the chart.~Reviewed interim history and current functioning. Reviewed vital signs,~Labs/ Radiology~and current medications noted below. Continue current treatment with the changes noted in the dictated addendum note Assessment: Vital Signs/I&O: Vital Signs Date Time Temp Pulse Resp B/P (MAP) Pulse Ox O2 Delivery O2 Flow Rate FiO2 09/18/20 15:48 97.4 90 18 136/75 (95) 97 Room Air I & O 09/17/20 09/17/20 09/18/20 15:00 23:00 07:00 Intake Total 480 ml 360 ml Balance 480 ml 360 ml Current Medications: Meds: Current Medications Medications (Trade) Dose Ordered Sig/Jose Luis Route PRN Reason Start Time Stop Time Status Last Admin Dose Admin Acetaminophen (Tylenol) 650 mg PRN Q6HRS PRN PO MILD PAIN / TEMP > 100.3'F 09/11/20 16:15 Multi-Ingredient Ointment (Analgesic [place]) 1 maritza PRN QID PRN TP MUSCLE PAIN 09/11/20 16:15 Al Hydroxide/Mg Hydroxide (Mylanta Plus Xs) 15 ml PRN AFTMEALHC PRN PO DYSPEPSIA 09/11/20 16:15 Magnesium Hydroxide (Milk Of Magnesia) 2,400 mg PRN QHS PRN PO CONSTIPATION 09/11/20 16:15 Acetaminophen (Tylenol) 1,000 mg TID PO 09/11/20 21:00 09/18/20 20:04 Amlodipine Besylate (Norvasc) 5 mg DAILY PO 09/12/20 09:00 09/18/20 08:28 Vitamin D (Vitamin D3) 50,000 unit WEEKLY PO 09/16/20 09:00 09/16/20 08:06 Lactobacillus Rhamnosus (Culturelle) 1 cap BID PO 09/11/20 21:00 09/18/20 20:04 Lidocaine (Lidoderm) 1 patch DAILY TP 09/12/20 09:00 09/16/20 08:04 Metformin HCl (Glucophage) 500 mg DAILYWBKFT PO 09/12/20 08:00 09/18/20 08:28 Olanzapine (ZyPREXA) 2.5 mg PRN Q4HRS PRN PO ANXIETY 09/11/20 16:15 09/17/20 15:45 DC 09/17/20 13:32 Olanzapine (ZyPREXA) 5 mg QHS PO 09/11/20 21:00 09/15/20 17:07 DC 09/14/20 19:25 Vitamin D (Vitamin D3) 1,000 unit DAILY PO 09/12/20 09:00 09/18/20 08:28 Cefdinir (Omnicef) 300 mg BID PO 09/12/20 09:00 09/16/20 21:01 DC 09/16/20 20:05 Mirtazapine (Remeron) 7.5 mg QHS PO 09/12/20 21:00 09/16/20 17:59 DC 09/15/20 20:14 Trazodone HCl (Desyrel) 50 mg PRN QHS PRN PO INSOMNIA 09/12/20 18:15 09/17/20 22:33 Melatonin (Melatonin) 3 mg HS PO 09/13/20 21:00 09/18/20 20:04 Quetiapine Fumarate (SEROquel) 12.5 mg 0900,1300,1700 PO 09/16/20 17:15 09/18/20 16:17 Mirtazapine (Remeron) 15 mg QHS PO 09/16/20 21:00 09/18/20 20:04 Sertraline HCl (Zoloft) 25 mg DAILY PO 09/17/20 09:00 09/20/20 08:59 09/18/20 08:28 Sertraline HCl (Zoloft) 50 mg DAILY PO 09/20/20 09:00 Olanzapine (ZyPREXA) 2.5 mg PRN Q2HR PRN PO ANXIETY 09/17/20 15:45 09/18/20 17:03 Hydroxyzine HCl (Atarax) 25 mg TID PRN PRN PO ITCHING 09/17/20 15:45 09/18/20 17:03 I have reviewed the current psychotropics carefully including drug interactions. Risk benefit ratio favors no change other than as noted in my dictated progress note. 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
--- NOTE | 2020-09-19 00:06 | NUR ---
Patient is very disorganized and cannot follow directions. Patient noticed to be having difficulty maneuvering wheelchair in day room, it appears she cannot figure out how to use hands to move it and is not realizing that brakes are on. Nurse showed her and told her how to use wheels and unlock the brake but she is unable to comprehend. Patient compliant with medications crushed in chocolate pudding. No s/s pain noted, patient cannot understand this nurse and replies "what" to any inquiries. Patient was observed using toothbrush to comb hair while looking in the bathroom mirror. Patient also attempted to "wash" a hospital gown in the toilet.
[2020-09-19 06:26] VITALS: BP 149/72
--- NOTE | 2020-09-19 07:33 | PDOC ---
Exam Note: Hasmukh Note: This note is a late entry for 09/16/2020 covers elements not covered in my initial note. Subjective: The patient was seen individually in the evening of 09/16/2020 with Nirmal XIE, discussed and reviewed the chart. She slept just 1/2 hours previous night. She remains confused, spitting out her meds in the morning, took her meds at lunchtime. She stripped herself and pooped in her room per nursing report. Review of Systems: No CV, , pulmonary, eye, ENT system symptoms on review. Mental Status Exam: The patient is oriented to herself. Insight and judgment, recent and remote memory, attention and concentration, fund of knowledge is poor consistent with her diagnoses. Laboratory Data: Reviewed. Impression: Major neurocognitive disorder Alzheimer vascular with delusion, depression, behavioral disturbance. Anxiety disorder unspecified. Impulse control disorder unspecified. Plan: Given her marked insomnia, we will increase Remeron from 7.5 mg to 15 mg h.s. Start Zoloft 25 mg a day for 2 days, then 50 mg a day after that. Maintain melatonin, Seroquel and Zyprexa as p.r.n. Assessment: Vital Signs/I&O: Vital Signs Date Time Temp Pulse Resp B/P (MAP) Pulse Ox O2 Delivery O2 Flow Rate FiO2 09/19/20 06:26 97.4 92 18 149/72 (97) 95 09/18/20 15:48 Room Air I & O 09/18/20 09/18/20 09/19/20 15:00 23:00 07:00 Intake Total 360 ml 360 ml Balance 360 ml 360 ml Current Medications: Meds: Current Medications Medications (Trade) Dose Ordered Sig/Jose Luis Route PRN Reason Start Time Stop Time Status Last Admin Dose Admin Acetaminophen (Tylenol) 650 mg PRN Q6HRS PRN PO MILD PAIN / TEMP > 100.3'F 09/11/20 16:15 Multi-Ingredient Ointment (Analgesic [place]) 1 maritza PRN QID PRN TP MUSCLE PAIN 09/11/20 16:15 Al Hydroxide/Mg Hydroxide (Mylanta Plus Xs) 15 ml PRN AFTMEALHC PRN PO DYSPEPSIA 09/11/20 16:15 Magnesium Hydroxide (Milk Of Magnesia) 2,400 mg PRN QHS PRN PO CONSTIPATION 09/11/20 16:15 Acetaminophen (Tylenol) 1,000 mg TID PO 09/11/20 21:00 09/18/20 20:04 Amlodipine Besylate (Norvasc) 5 mg DAILY PO 09/12/20 09:00 09/18/20 08:28 Vitamin D (Vitamin D3) 50,000 unit WEEKLY PO 09/16/20 09:00 09/16/20 08:06 Lactobacillus Rhamnosus (Culturelle) 1 cap BID PO 09/11/20 21:00 09/18/20 20:04 Lidocaine (Lidoderm) 1 patch DAILY TP 09/12/20 09:00 09/16/20 08:04 Metformin HCl (Glucophage) 500 mg DAILYWBKFT PO 09/12/20 08:00 09/18/20 08:28 Olanzapine (ZyPREXA) 2.5 mg PRN Q4HRS PRN PO ANXIETY 09/11/20 16:15 09/17/20 15:45 DC 09/17/20 13:32 Olanzapine (ZyPREXA) 5 mg QHS PO 09/11/20 21:00 09/15/20 17:07 DC 09/14/20 19:25 Vitamin D (Vitamin D3) 1,000 unit DAILY PO 09/12/20 09:00 09/18/20 08:28 Cefdinir (Omnicef) 300 mg BID PO 09/12/20 09:00 09/16/20 21:01 DC 09/16/20 20:05 Mirtazapine (Remeron) 7.5 mg QHS PO 09/12/20 21:00 09/16/20 17:59 DC 09/15/20 20:14 Trazodone HCl (Desyrel) 50 mg PRN QHS PRN PO INSOMNIA 09/12/20 18:15 09/17/20 22:33 Melatonin (Melatonin) 3 mg HS PO 09/13/20 21:00 09/18/20 20:04 Quetiapine Fumarate (SEROquel) 12.5 mg 0900,1300,1700 PO 09/16/20 17:15 09/18/20 16:17 Mirtazapine (Remeron) 15 mg QHS PO 09/16/20 21:00 09/18/20 20:04 Sertraline HCl (Zoloft) 25 mg DAILY PO 09/17/20 09:00 09/20/20 08:59 09/18/20 08:28 Sertraline HCl (Zoloft) 50 mg DAILY PO 09/20/20 09:00 Olanzapine (ZyPREXA) 2.5 mg PRN Q2HR PRN PO ANXIETY 09/17/20 15:45 09/18/20 17:03 Hydroxyzine HCl (Atarax) 25 mg TID PRN PRN PO ITCHING 09/17/20 15:45 09/18/20 17:03 I have reviewed the current psychotropics carefully including drug interactions. Risk benefit ratio favors no change other than as noted in my dictated progress note. 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
--- NOTE | 2020-09-19 08:00 | PDOC ---
Exam Note: Hasmukh Note: This note is a late entry for 09/17/2020 covers elements not covered in my initial note. Subjective: The patient was seen individually in the evening of 09/17/2020 with Denise XEI, discussed and reviewed the chart. She slept 6-1/2 hours previous night. She has been yelling at times. Received Zyprexa at 2 p.m. and Zyprexa and hydroxyzine at 4.30 p.m. and then did a little better. She remains anxious, paranoid. I met with her at length in the evening. Addressed behavior modifications to help her paranoia, impulsivity and anxiety. Review of Systems: No CV, , pulmonary, eye, ENT system symptoms on review. Mental Status Exam: The patient is oriented to herself. Insight and judgment, recent and remote memory, attention and concentration, fund of knowledge is poor consistent with her diagnoses. Laboratory Data: Reviewed. Impression: Major neurocognitive disorder Alzheimer vascular with delusion, depression, behavioral disturbance. Anxiety disorder unspecified. Impulse control disorder unspecified. Plan: No change from initial note. Assessment: Vital Signs/I&O: Vital Signs Date Time Temp Pulse Resp B/P (MAP) Pulse Ox O2 Delivery O2 Flow Rate FiO2 09/19/20 06:26 97.4 92 18 149/72 (97) 95 09/18/20 15:48 Room Air I & O 09/18/20 09/18/20 09/19/20 15:00 23:00 07:00 Intake Total 360 ml 360 ml Balance 360 ml 360 ml Current Medications: Meds: Current Medications Medications (Trade) Dose Ordered Sig/Jose Luis Route PRN Reason Start Time Stop Time Status Last Admin Dose Admin Acetaminophen (Tylenol) 650 mg PRN Q6HRS PRN PO MILD PAIN / TEMP > 100.3'F 09/11/20 16:15 Multi-Ingredient Ointment (Analgesic [place]) 1 maritza PRN QID PRN TP MUSCLE PAIN 09/11/20 16:15 Al Hydroxide/Mg Hydroxide (Mylanta Plus Xs) 15 ml PRN AFTMEALHC PRN PO DYSPEPSIA 09/11/20 16:15 Magnesium Hydroxide (Milk Of Magnesia) 2,400 mg PRN QHS PRN PO CONSTIPATION 09/11/20 16:15 Acetaminophen (Tylenol) 1,000 mg TID PO 09/11/20 21:00 09/18/20 20:04 Amlodipine Besylate (Norvasc) 5 mg DAILY PO 09/12/20 09:00 09/18/20 08:28 Vitamin D (Vitamin D3) 50,000 unit WEEKLY PO 09/16/20 09:00 09/16/20 08:06 Lactobacillus Rhamnosus (Culturelle) 1 cap BID PO 09/11/20 21:00 09/18/20 20:04 Lidocaine (Lidoderm) 1 patch DAILY TP 09/12/20 09:00 09/16/20 08:04 Metformin HCl (Glucophage) 500 mg DAILYWBKFT PO 09/12/20 08:00 09/18/20 08:28 Olanzapine (ZyPREXA) 2.5 mg PRN Q4HRS PRN PO ANXIETY 09/11/20 16:15 09/17/20 15:45 DC 09/17/20 13:32 Olanzapine (ZyPREXA) 5 mg QHS PO 09/11/20 21:00 09/15/20 17:07 DC 09/14/20 19:25 Vitamin D (Vitamin D3) 1,000 unit DAILY PO 09/12/20 09:00 09/18/20 08:28 Cefdinir (Omnicef) 300 mg BID PO 09/12/20 09:00 09/16/20 21:01 DC 09/16/20 20:05 Mirtazapine (Remeron) 7.5 mg QHS PO 09/12/20 21:00 09/16/20 17:59 DC 09/15/20 20:14 Trazodone HCl (Desyrel) 50 mg PRN QHS PRN PO INSOMNIA 09/12/20 18:15 09/17/20 22:33 Melatonin (Melatonin) 3 mg HS PO 09/13/20 21:00 09/18/20 20:04 Quetiapine Fumarate (SEROquel) 12.5 mg 0900,1300,1700 PO 09/16/20 17:15 09/18/20 16:17 Mirtazapine (Remeron) 15 mg QHS PO 09/16/20 21:00 09/18/20 20:04 Sertraline HCl (Zoloft) 25 mg DAILY PO 09/17/20 09:00 09/20/20 08:59 09/18/20 08:28 Sertraline HCl (Zoloft) 50 mg DAILY PO 09/20/20 09:00 Olanzapine (ZyPREXA) 2.5 mg PRN Q2HR PRN PO ANXIETY 09/17/20 15:45 09/18/20 17:03 Hydroxyzine HCl (Atarax) 25 mg TID PRN PRN PO ITCHING 09/17/20 15:45 09/18/20 17:03 I have reviewed the current psychotropics carefully including drug interactions. Risk benefit ratio favors no change other than as noted in my dictated progress note. 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
[2020-09-19] MEDS: SERTRALINE 25 MG TABLET. PO SCH (08:51)
[2020-09-19] MEDS: CHOLECALCIFEROL (VITAMIN D3) 1,000 UNIT TABLET PO SCH (08:51)
[2020-09-19] MEDS: QUEtiapine 25 MG TABLET. PO SCH ×3 (08:51→17:06)
[2020-09-19] MEDS: amLODIPine BESYLATE 5 MG TABLET PO SCH (08:51)
[2020-09-19] MEDS: ACETAMINOPHEN 500 MG TABLET PO SCH ×3 (08:51→20:37)
[2020-09-19] MEDS: metFORMIN 500 MG TABLET PO SCH (08:51)
[2020-09-19] MEDS: LACTOBACILLUS RHAMNOSUS GG 1 CAPSULE. PO SCH ×2 (08:51→20:37)
[2020-09-19] MEDS: LIDOCAINE (700MG/PATCH) PATCH. TP SCH (08:51)
--- NOTE | 2020-09-19 09:52 | NUR ---
Patient is calm and cooperative. Patient willing to take her medication as long as it is crushed.
[2020-09-19 10:15] LABS: BASO # 0.1 x10^3/uL (0.0-0.2); BASO % 1 % (0-3); EOS # 0.2 x10^3/uL (0.0-0.7); EOS % 3 % (0-3); HEMATOCRIT 26.4 % (36.0-47.0); HEMOGLOBIN 8.9 g/dL (12.0-15.5); LYMPH # 1.7 x10^3/uL (1.0-4.8); LYMPH % 21 % (24-48); MEAN CORPUSCULAR HEMOGLOBIN 32 pg (25-35); MEAN CORPUSCULAR HGB CONC 34 g/dL (31-37); MEAN CORPUSCULAR VOLUME 94 fL (79-100); MONO # 0.7 x10^3/uL (0.0-1.1); MONO % 8 % (0-9); NEUT # 5.5 x10^3uL (1.8-7.7); NEUT % 67 % (31-73); PLATELET COUNT 367 x10^3/uL (140-400); RED CELL DISTRIBUTION WIDTH 13.7 % (11.5-14.5); WHITE BLOOD COUNT 8.1 x10^3/uL (4.0-11.0)
[2020-09-19 10:57] LABS: ALBUMIN/GLOBULIN RATIO 0.8 (1.0-1.7); CALCIUM 8.6 mg/dL (8.5-10.1); CREATININE 0.8 mg/dL (0.6-1.0); GFR 68.2; POTASSIUM 3.5 mmol/L (3.5-5.1); TOTAL BILIRUBIN 0.2 mg/dL (0.2-1.0); TOTAL PROTEIN 6.9 g/dL (6.4-8.2)
[2020-09-19 15:46] VITALS: BP 124/75
[2020-09-19] MEDS: MIRTAZAPINE 15 MG TABLET PO SCH (20:37)
[2020-09-19] MEDS: MELATONIN 3 MG TABLET PO SCH (20:37)
--- NOTE | 2020-09-19 21:48 | PDOC ---
Exam Note: Hasmukh Note: Please also refer to the separate dictated note~for this date of service dictated separately.~Patient seen individually. Discussed the patient with Nursing staff reviewed the chart.~Reviewed interim history and current functioning. Reviewed vital signs,~Labs/ Radiology~and current medications noted below. Continue current treatment with the changes noted in the dictated addendum note Assessment: Vital Signs/I&O: Vital Signs Date Time Temp Pulse Resp B/P (MAP) Pulse Ox O2 Delivery O2 Flow Rate FiO2 09/19/20 15:46 96.8 79 16 124/75 (91) 96 Room Air I & O 09/18/20 09/18/20 09/19/20 15:00 23:00 07:00 Intake Total 360 ml 360 ml Balance 360 ml 360 ml Labs: Laboratory Tests Test 09/19/20 10:00 White Blood Count 8.1 x10^3/uL (4.0-11.0) Red Blood Count 2.80 x10^6/uL (3.50-5.40) L Hemoglobin 8.9 g/dL (12.0-15.5) L Hematocrit 26.4 % (36.0-47.0) L Mean Corpuscular Volume 94 fL (79-100) Mean Corpuscular Hemoglobin 32 pg (25-35) Mean Corpuscular Hemoglobin Concent 34 g/dL (31-37) Red Cell Distribution Width 13.7 % (11.5-14.5) Platelet Count 367 x10^3/uL (140-400) Neutrophils (%) (Auto) 67 % (31-73) Lymphocytes (%) (Auto) 21 % (24-48) L Monocytes (%) (Auto) 8 % (0-9) Eosinophils (%) (Auto) 3 % (0-3) Basophils (%) (Auto) 1 % (0-3) Neutrophils # (Auto) 5.5 x10^3uL (1.8-7.7) Lymphocytes # (Auto) 1.7 x10^3/uL (1.0-4.8) Monocytes # (Auto) 0.7 x10^3/uL (0.0-1.1) Eosinophils # (Auto) 0.2 x10^3/uL (0.0-0.7) Basophils # (Auto) 0.1 x10^3/uL (0.0-0.2) Sodium Level 140 mmol/L (136-145) Potassium Level 3.5 mmol/L (3.5-5.1) Chloride Level 106 mmol/L (98-107) Carbon Dioxide Level 25 mmol/L (21-32) Anion Gap 9 (6-14) Blood Urea Nitrogen 16 mg/dL (7-20) Creatinine 0.8 mg/dL (0.6-1.0) Estimated GFR (Cockcroft-Gault) 68.2 BUN/Creatinine Ratio 20 (6-20) Glucose Level 157 mg/dL (70-99) H Calcium Level 8.6 mg/dL (8.5-10.1) Total Bilirubin 0.2 mg/dL (0.2-1.0) Aspartate Amino Transferase (AST) 18 U/L (15-37) Alanine Aminotransferase (ALT) 22 U/L (14-59) Alkaline Phosphatase 54 U/L (46-116) Total Protein 6.9 g/dL (6.4-8.2) Albumin 3.0 g/dL (3.4-5.0) L Albumin/Globulin Ratio 0.8 (1.0-1.7) L Current Medications: Meds: Laboratory Tests Test 09/19/20 10:00 White Blood Count 8.1 x10^3/uL Red Blood Count 2.80 x10^6/uL Hemoglobin 8.9 g/dL Hematocrit 26.4 % Mean Corpuscular Volume 94 fL Mean Corpuscular Hemoglobin 32 pg Mean Corpuscular Hemoglobin Concent 34 g/dL Red Cell Distribution Width 13.7 % Platelet Count 367 x10^3/uL Neutrophils (%) (Auto) 67 % Lymphocytes (%) (Auto) 21 % Monocytes (%) (Auto) 8 % Eosinophils (%) (Auto) 3 % Basophils (%) (Auto) 1 % Neutrophils # (Auto) 5.5 x10^3uL Lymphocytes # (Auto) 1.7 x10^3/uL Monocytes # (Auto) 0.7 x10^3/uL Eosinophils # (Auto) 0.2 x10^3/uL Basophils # (Auto) 0.1 x10^3/uL Sodium Level 140 mmol/L Potassium Level 3.5 mmol/L Chloride Level 106 mmol/L Carbon Dioxide Level 25 mmol/L Anion Gap 9 Blood Urea Nitrogen 16 mg/dL Creatinine 0.8 mg/dL Estimated GFR (Cockcroft-Gault) 68.2 BUN/Creatinine Ratio 20 Glucose Level 157 mg/dL Calcium Level 8.6 mg/dL Total Bilirubin 0.2 mg/dL Aspartate Amino Transf (AST/SGOT) 18 U/L Alanine Aminotransferase (ALT/SGPT) 22 U/L Alkaline Phosphatase 54 U/L Total Protein 6.9 g/dL Albumin 3.0 g/dL Albumin/Globulin Ratio 0.8 Current Medications Medications (Trade) Dose Ordered Sig/Jose Luis Route PRN Reason Start Time Stop Time Status Last Admin Dose Admin Acetaminophen (Tylenol) 650 mg PRN Q6HRS PRN PO MILD PAIN / TEMP > 100.3'F 09/11/20 16:15 Multi-Ingredient Ointment (Analgesic [place]) 1 maritza PRN QID PRN TP MUSCLE PAIN 09/11/20 16:15 Al Hydroxide/Mg Hydroxide (Mylanta Plus Xs) 15 ml PRN AFTMEALHC PRN PO DYSPEPSIA 09/11/20 16:15 Magnesium Hydroxide (Milk Of Magnesia) 2,400 mg PRN QHS PRN PO CONSTIPATION 09/11/20 16:15 Acetaminophen (Tylenol) 1,000 mg TID PO 09/11/20 21:00 09/19/20 20:37 Amlodipine Besylate (Norvasc) 5 mg DAILY PO 09/12/20 09:00 09/19/20 08:51 Vitamin D (Vitamin D3) 50,000 unit WEEKLY PO 09/16/20 09:00 09/16/20 08:06 Lactobacillus Rhamnosus (Culturelle) 1 cap BID PO 09/11/20 21:00 09/19/20 20:37 Lidocaine (Lidoderm) 1 patch DAILY TP 09/12/20 09:00 09/19/20 08:51 Metformin HCl (Glucophage) 500 mg DAILYWBKFT PO 09/12/20 08:00 09/19/20 08:51 Olanzapine (ZyPREXA) 2.5 mg PRN Q4HRS PRN PO ANXIETY 09/11/20 16:15 09/17/20 15:45 DC 09/17/20 13:32 Olanzapine (ZyPREXA) 5 mg QHS PO 09/11/20 21:00 09/15/20 17:07 DC 09/14/20 19:25 Vitamin D (Vitamin D3) 1,000 unit DAILY PO 09/12/20 09:00 09/19/20 08:51 Cefdinir (Omnicef) 300 mg BID PO 09/12/20 09:00 09/16/20 21:01 DC 09/16/20 20:05 Mirtazapine (Remeron) 7.5 mg QHS PO 09/12/20 21:00 09/16/20 17:59 DC 09/15/20 20:14 Trazodone HCl (Desyrel) 50 mg PRN QHS PRN PO INSOMNIA 09/12/20 18:15 09/17/20 22:33 Melatonin (Melatonin) 3 mg HS PO 09/13/20 21:00 09/19/20 20:37 Quetiapine Fumarate (SEROquel) 12.5 mg 0900,1300,1700 PO 09/16/20 17:15 09/19/20 17:06 Mirtazapine (Remeron) 15 mg QHS PO 09/16/20 21:00 09/19/20 20:37 Sertraline HCl (Zoloft) 25 mg DAILY PO 09/17/20 09:00 09/20/20 08:59 09/19/20 08:51 Sertraline HCl (Zoloft) 50 mg DAILY PO 09/20/20 09:00 Olanzapine (ZyPREXA) 2.5 mg PRN Q2HR PRN PO ANXIETY 09/17/20 15:45 09/18/20 17:03 Hydroxyzine HCl (Atarax) 25 mg TID PRN PRN PO ITCHING 09/17/20 15:45 09/18/20 17:03 I have reviewed the current psychotropics carefully including drug interactions. Risk benefit ratio favors no change other than as noted in my dictated progress note. 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
--- NOTE | 2020-09-19 23:42 | NUR ---
Patient was able to ambulate in her wheelchair better tonight. She was wandering and disorganized, asking repetitive questions and stating "I don't know, I can't hear you". Patient compliant with medications crushed in chocolate pudding.
[2020-09-20] MEDS: LIDOCAINE (700MG/PATCH) PATCH. TP SCH (05:07)
[2020-09-20] MEDS ORDERED: LIDOCAINE (700MG/PATCH) PATCH. TP PRN (05:15)
[2020-09-20 06:09] VITALS: BP 144/67
[2020-09-20] MEDS: QUEtiapine 25 MG TABLET. PO SCH ×3 (06:12→16:38)
[2020-09-20] MEDS: CHOLECALCIFEROL (VITAMIN D3) 1,000 UNIT TABLET PO SCH (06:12)
[2020-09-20] MEDS: amLODIPine BESYLATE 5 MG TABLET PO SCH (06:12)
[2020-09-20] MEDS: ACETAMINOPHEN 500 MG TABLET PO SCH ×3 (06:12→20:07)
[2020-09-20] MEDS: metFORMIN 500 MG TABLET PO SCH (06:13)
[2020-09-20] MEDS: LACTOBACILLUS RHAMNOSUS GG 1 CAPSULE. PO SCH ×2 (06:13→20:07)
--- NOTE | 2020-09-20 07:00 | NUR ---
patient in the bathroom this morning, asking nurse what she should do. She was unable to follow any directions and continued to ask what she should do. Patient compliant with medications crushed in chocolate.
[2020-09-20] MEDS: SERTRALINE 50 MG TABLET. PO SCH (08:18)
--- NOTE | 2020-09-20 09:50 | NUR ---
Patient is calm and cooperative. Patient willing to take her medication as long as it is crushed.
[2020-09-20 16:10] VITALS: BP 137/70
[2020-09-20] MEDS: OLANZapine 2.5 MG TABLET PO PRN (16:38)
[2020-09-20] MEDS: hydrOXYzine HCL 25 MG TABLET PO PRN (16:38)
[2020-09-20] MEDS: MIRTAZAPINE 15 MG TABLET PO SCH (20:06)
[2020-09-20] MEDS: MELATONIN 3 MG TABLET PO SCH (20:07)
[2020-09-20] MEDS: PATCH REMOVAL. MC SCH (21:00)
--- NOTE | 2020-09-20 21:51 | PDOC ---
Exam Note: Hasmukh Note: Please also refer to the separate dictated note~for this date of service dictated separately.~Patient seen individually. Discussed the patient with Nursing staff reviewed the chart.~Reviewed interim history and current functioning. Reviewed vital signs,~Labs/ Radiology~and current medications noted below. Continue current treatment with the changes noted in the dictated addendum note Assessment: Vital Signs/I&O: Vital Signs Date Time Temp Pulse Resp B/P (MAP) Pulse Ox O2 Delivery O2 Flow Rate FiO2 09/20/20 16:10 98.7 81 18 137/70 (92) 97 09/20/20 06:09 Room Air I & O 09/19/20 09/19/20 09/20/20 15:00 23:00 07:00 Intake Total 440 ml 360 ml Balance 440 ml 360 ml Current Medications: Meds: Current Medications Medications (Trade) Dose Ordered Sig/Jose Luis Route PRN Reason Start Time Stop Time Status Last Admin Dose Admin Acetaminophen (Tylenol) 650 mg PRN Q6HRS PRN PO MILD PAIN / TEMP > 100.3'F 09/11/20 16:15 Multi-Ingredient Ointment (Analgesic [place]) 1 maritza PRN QID PRN TP MUSCLE PAIN 09/11/20 16:15 Al Hydroxide/Mg Hydroxide (Mylanta Plus Xs) 15 ml PRN AFTMEALHC PRN PO DYSPEPSIA 09/11/20 16:15 Magnesium Hydroxide (Milk Of Magnesia) 2,400 mg PRN QHS PRN PO CONSTIPATION 09/11/20 16:15 Acetaminophen (Tylenol) 1,000 mg TID PO 09/11/20 21:00 09/20/20 20:07 Amlodipine Besylate (Norvasc) 5 mg DAILY PO 09/12/20 09:00 09/20/20 06:12 Vitamin D (Vitamin D3) 50,000 unit WEEKLY PO 09/16/20 09:00 09/16/20 08:06 Lactobacillus Rhamnosus (Culturelle) 1 cap BID PO 09/11/20 21:00 09/20/20 20:07 Lidocaine (Lidoderm) 1 patch DAILY TP 09/12/20 09:00 09/20/20 05:10 DC 09/19/20 08:51 Metformin HCl (Glucophage) 500 mg DAILYWBKFT PO 09/12/20 08:00 09/20/20 06:13 Olanzapine (ZyPREXA) 2.5 mg PRN Q4HRS PRN PO ANXIETY 09/11/20 16:15 09/17/20 15:45 DC 09/17/20 13:32 Olanzapine (ZyPREXA) 5 mg QHS PO 09/11/20 21:00 09/15/20 17:07 DC 09/14/20 19:25 Vitamin D (Vitamin D3) 1,000 unit DAILY PO 09/12/20 09:00 09/20/20 06:12 Cefdinir (Omnicef) 300 mg BID PO 09/12/20 09:00 09/16/20 21:01 DC 09/16/20 20:05 Mirtazapine (Remeron) 7.5 mg QHS PO 09/12/20 21:00 09/16/20 17:59 DC 09/15/20 20:14 Trazodone HCl (Desyrel) 50 mg PRN QHS PRN PO INSOMNIA 09/12/20 18:15 09/17/20 22:33 Melatonin (Melatonin) 3 mg HS PO 09/13/20 21:00 09/20/20 20:07 Quetiapine Fumarate (SEROquel) 12.5 mg 0900,1300,1700 PO 09/16/20 17:15 09/20/20 16:38 Mirtazapine (Remeron) 15 mg QHS PO 09/16/20 21:00 09/20/20 20:06 Sertraline HCl (Zoloft) 25 mg DAILY PO 09/17/20 09:00 09/20/20 08:59 DC 09/19/20 08:51 Sertraline HCl (Zoloft) 50 mg DAILY PO 09/20/20 09:00 09/20/20 08:18 Olanzapine (ZyPREXA) 2.5 mg PRN Q2HR PRN PO ANXIETY 09/17/20 15:45 09/20/20 16:38 Hydroxyzine HCl (Atarax) 25 mg TID PRN PRN PO ITCHING 09/17/20 15:45 09/20/20 16:38 Lidocaine (Lidoderm) 1 patch PRN DAILY PRN TP TOPICAL PAIN 09/20/20 05:15 Miscellaneous (Lidoderm Patch Removal) 1 ea QHS MC 09/20/20 21:00 Current Medications Medications (Trade) Dose Ordered Sig/Jose Luis Route PRN Reason Start Time Stop Time Status Last Admin Dose Admin Sertraline HCl (Zoloft) 50 mg DAILY PO 09/20/20 09:00 09/20/20 08:18 I have reviewed the current psychotropics carefully including drug interactions. Risk benefit ratio favors no change other than as noted in my dictated progress note. 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
[2020-09-21 05:56] VITALS: BP 165/75
--- NOTE | 2020-09-21 06:41 | PDOC ---
Exam Note: Hasmukh Note: This note is a late entry for 09/18/2020 covers elements not covered in my initial note. Subjective: The patient was seen individually in the evening of 09/18/2020 with Rabia XIE, discussed and reviewed the chart. She slept 5-1/4 hours previous night. Previous night the patient was yelling, somewhat delusional about a man calling her from [place]. She is non-redirectable. During the day on 09/18, yelling is better till dinner time and then she has been obsessed and fixated on wanting her purse and was yelling and hitting at the window when she could not get it and she was told it is not safe keeping. The patient gets agitated and yelling, Zyprexa and hydroxyzine seem to help. Review of Systems: No CV, , pulmonary, eye, ENT system symptoms on review. Mental Status Exam: The patient is oriented to herself. I met with her in the dayroom. Patient is little irritable, impulsive, confused. I discussed with her about the incident from previous evening and she denied she remembered anything. Insight and judgment, recent and remote memory, attention and con centration, fund of knowledge is poor consistent with her diagnoses. Laboratory Data: Reviewed. Impression: Major neurocognitive disorder Alzheimer vascular with delusion, depression, behavioral disturbance. Anxiety disorder unspecified. Impulse cont rol disorder unspecified. Plan: No change from initial note. Assessment: Vital Signs/I&O: Vital Signs Date Time Temp Pulse Resp B/P (MAP) Pulse Ox O2 Delivery O2 Flow Rate FiO2 09/21/20 05:56 98.1 93 15 165/75 (105) 94 09/20/20 06:09 Room Air I & O 09/20/20 09/20/20 09/21/20 15:00 23:00 07:00 Intake Total 840 ml 600 ml Balance 840 ml 600 ml Current Medications: Meds: Current Medications Medications (Trade) Dose Ordered Sig/Jose Luis Route PRN Reason Start Time Stop Time Status Last Admin Dose Admin Acetaminophen (Tylenol) 650 mg PRN Q6HRS PRN PO MILD PAIN / TEMP > 100.3'F 09/11/20 16:15 Multi-Ingredient Ointment (Analgesic [place]) 1 maritza PRN QID PRN TP MUSCLE PAIN 09/11/20 16:15 Al Hydroxide/Mg Hydroxide (Mylanta Plus Xs) 15 ml PRN AFTMEALHC PRN PO DYSPEPSIA 09/11/20 16:15 Magnesium Hydroxide (Milk Of Magnesia) 2,400 mg PRN QHS PRN PO CONSTIPATION 09/11/20 16:15 Acetaminophen (Tylenol) 1,000 mg TID PO 09/11/20 21:00 09/20/20 20:07 Amlodipine Besylate (Norvasc) 5 mg DAILY PO 09/12/20 09:00 09/20/20 06:12 Vitamin D (Vitamin D3) 50,000 unit WEEKLY PO 09/16/20 09:00 09/16/20 08:06 Lactobacillus Rhamnosus (Culturelle) 1 cap BID PO 09/11/20 21:00 09/20/20 20:07 Lidocaine (Lidoderm) 1 patch DAILY TP 09/12/20 09:00 09/20/20 05:10 DC 09/19/20 08:51 Metformin HCl (Glucophage) 500 mg DAILYWBKFT PO 09/12/20 08:00 09/20/20 06:13 Olanzapine (ZyPREXA) 2.5 mg PRN Q4HRS PRN PO ANXIETY 09/11/20 16:15 09/17/20 15:45 DC 09/17/20 13:32 Olanzapine (ZyPREXA) 5 mg QHS PO 09/11/20 21:00 09/15/20 17:07 DC 09/14/20 19:25 Vitamin D (Vitamin D3) 1,000 unit DAILY PO 09/12/20 09:00 09/20/20 06:12 Cefdinir (Omnicef) 300 mg BID PO 09/12/20 09:00 09/16/20 21:01 DC 09/16/20 20:05 Mirtazapine (Remeron) 7.5 mg QHS PO 09/12/20 21:00 09/16/20 17:59 DC 09/15/20 20:14 Trazodone HCl (Desyrel) 50 mg PRN QHS PRN PO INSOMNIA 09/12/20 18:15 09/17/20 22:33 Melatonin (Melatonin) 3 mg HS PO 09/13/20 21:00 09/20/20 20:07 Quetiapine Fumarate (SEROquel) 12.5 mg 0900,1300,1700 PO 09/16/20 17:15 09/20/20 16:38 Mirtazapine (Remeron) 15 mg QHS PO 09/16/20 21:00 09/20/20 20:06 Sertraline HCl (Zoloft) 25 mg DAILY PO 09/17/20 09:00 09/20/20 08:59 DC 09/19/20 08:51 Sertraline HCl (Zoloft) 50 mg DAILY PO 09/20/20 09:00 09/20/20 08:18 Olanzapine (ZyPREXA) 2.5 mg PRN Q2HR PRN PO ANXIETY 09/17/20 15:45 09/20/20 16:38 Hydroxyzine HCl (Atarax) 25 mg TID PRN PRN PO ITCHING 09/17/20 15:45 09/20/20 16:38 Lidocaine (Lidoderm) 1 patch PRN DAILY PRN TP TOPICAL PAIN 09/20/20 05:15 Miscellaneous (Lidoderm Patch Removal) 1 ea QHS 09/20/20 21:00 09/20/20 21:00 Current Medications Medications (Trade) Dose Ordered Sig/Jose Luis Route PRN Reason Start Time Stop Time Status Last Admin Dose Admin Sertraline HCl (Zoloft) 50 mg DAILY PO 09/20/20 09:00 09/20/20 08:18 Miscellaneous (Lidoderm Patch Removal) 1 ea QHS 09/20/20 21:00 09/20/20 21:00 I have reviewed the current psychotropics carefully including drug interactions. Risk benefit ratio favors no change other than as noted in my dictated progress note. 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
--- NOTE | 2020-09-21 07:18 | PDOC ---
Exam Note: Hasmukh Note: This note is a late entry for 09/19/2020 covers elements not covered in my initial note. Subjective: The patient was seen individually in the evening of 09/19/2020 with Jean Carlos XIE, discussed and reviewed the chart. She slept 3-1/4 hours previous night. The patient is resistive to her medications, at times takes them crushed. Review of Systems: Ambulation impaired in wheelchair. No CV, , pulmonary, eye, ENT system symptoms on review. Mental Status Exam: The patient is oriented to herself. Again met with her in the dayroom. Insight and judgment, recent and remote memory, attention and concentration, fund of knowledge is poor consistent with her diagnoses. Laboratory Data: Reviewed. Impression: Major neurocognitive disorder Alzheimer vascular with delusion, depression, behavioral disturbance. Anxiety disorder unspecified. Impulse control disorder unspecified. Plan: No change from initial note. The patient has completed her course of Cefdinir antibiotics for UTI and we may need to adjust her psychotropics if mood lability or agitation resurfaces. Assessment: Vital Signs/I&O: Vital Signs Date Time Temp Pulse Resp B/P (MAP) Pulse Ox O2 Delivery O2 Flow Rate FiO2 09/21/20 05:56 98.1 93 15 165/75 (105) 94 09/20/20 06:09 Room Air l I & O 09/20/20 09/20/20 09/21/20 15:00 23:00 07:00 Intake Total 840 ml 600 ml Balance 840 ml 600 ml Current Medications: Meds: Current Medications Medications (Trade) Dose Ordered Sig/Jose Luis Route PRN Reason Start Time Stop Time Status Last Admin Dose Admin Acetaminophen (Tylenol) 650 mg PRN Q6HRS PRN PO MILD PAIN / TEMP > 100.3'F 09/11/20 16:15 Multi-Ingredient Ointment (Analgesic [place]) 1 maritza PRN QID PRN TP MUSCLE PAIN 09/11/20 16:15 Al Hydroxide/Mg Hydroxide (Mylanta Plus Xs) 15 ml PRN AFTMEALHC PRN PO DYSPEPSIA 09/11/20 16:15 Magnesium Hydroxide (Milk Of Magnesia) 2,400 mg PRN QHS PRN PO CONSTIPATION 09/11/20 16:15 Acetaminophen (Tylenol) 1,000 mg TID PO 09/11/20 21:00 09/20/20 20:07 Amlodipine Besylate (Norvasc) 5 mg DAILY PO 09/12/20 09:00 09/20/20 06:12 Vitamin D (Vitamin D3) 50,000 unit WEEKLY PO 09/16/20 09:00 09/16/20 08:06 Lactobacillus Rhamnosus (Culturelle) 1 cap BID PO 09/11/20 21:00 09/20/20 20:07 Lidocaine (Lidoderm) 1 patch DAILY TP 09/12/20 09:00 09/20/20 05:10 DC 09/19/20 08:51 Metformin HCl (Glucophage) 500 mg DAILYWBKFT PO 09/12/20 08:00 09/20/20 06:13 Olanzapine (ZyPREXA) 2.5 mg PRN Q4HRS PRN PO ANXIETY 09/11/20 16:15 09/17/20 15:45 DC 09/17/20 13:32 Olanzapine (ZyPREXA) 5 mg QHS PO 09/11/20 21:00 09/15/20 17:07 DC 09/14/20 19:25 Vitamin D (Vitamin D3) 1,000 unit DAILY PO 09/12/20 09:00 09/20/20 06:12 Cefdinir (Omnicef) 300 mg BID PO 09/12/20 09:00 09/16/20 21:01 DC 09/16/20 20:05 Mirtazapine (Remeron) 7.5 mg QHS PO 09/12/20 21:00 09/16/20 17:59 DC 09/15/20 20:14 Trazodone HCl (Desyrel) 50 mg PRN QHS PRN PO INSOMNIA 09/12/20 18:15 09/17/20 22:33 Melatonin (Melatonin) 3 mg HS PO 09/13/20 21:00 09/20/20 20:07 Quetiapine Fumarate (SEROquel) 12.5 mg 0900,1300,1700 PO 09/16/20 17:15 09/20/20 16:38 Mirtazapine (Remeron) 15 mg QHS PO 09/16/20 21:00 09/20/20 20:06 Sertraline HCl (Zoloft) 25 mg DAILY PO 09/17/20 09:00 09/20/20 08:59 DC 09/19/20 08:51 Sertraline HCl (Zoloft) 50 mg DAILY PO 09/20/20 09:00 09/20/20 08:18 Olanzapine (ZyPREXA) 2.5 mg PRN Q2HR PRN PO ANXIETY 09/17/20 15:45 09/20/20 16:38 Hydroxyzine HCl (Atarax) 25 mg TID PRN PRN PO ITCHING 09/17/20 15:45 09/20/20 16:38 Lidocaine (Lidoderm) 1 patch PRN DAILY PRN TP TOPICAL PAIN 09/20/20 05:15 Miscellaneous (Lidoderm Patch Removal) 1 ea QHS [facility] 09/20/20 21:00 09/20/20 21:00 Current Medications Medications (Trade) Dose Ordered Sig/Jose Luis Route PRN Reason Start Time Stop Time Status Last Admin Dose Admin Sertraline HCl (Zoloft) 50 mg DAILY PO 09/20/20 09:00 09/20/20 08:18 Miscellaneous ([facility] Rem[facility] 09/20/[facility] 21:00 09/20/20 21:00 I have reviewed the current psychotropics carefully including drug interactions. Risk benefit ratio favors no change other than as noted in my dictated progress note. Diagnosis: Problems: (1) Alzheimer's disease with delusions (2) Impulse control disorder (3) Anxiety disorder, unspecified (4) Major neurocognitive disorder (5) Dementia, vascular, with depression (6) Dementia, vascular, with delusions (7) Dementia in Alzheimer's disease with depression (8) Dementia in Alzheimer's disease with delusions (9) Dementia in Alzheimer's disease with early onset with behavioral disturbance FIDELINA GARCIA MD September 21, 2020 07:18
--- NOTE | 2020-09-21 07:43 | PDOC ---
Exam Note: Hasmukh Note: This note is a late entry for 09/20/2020 covers elements not covered in my initial note. Subjective: The patient was seen individually in the evening of 09/20/2020 with Jean Carlos XIE, discussed and reviewed the chart. She slept 5-1/4 hours previous night. The patient has been somewhat obsessive, wanting her watch reportedly which is in safe keeping. As I met with her in her room this evening, she was fixated on wanting me to open the closet in her room and followed me around the unit after I had made rounds with her. She seemed to remember this for a short while and forgot. Review of Systems: Ambulation impaired in wheelchair. No CV, , pulmonary, eye, ENT system symptoms on review. Mental Status Exam: The patient is oriented to herself. Insight and judgment, recent and remote memory, attention and concentration, fund of knowledge is poor consistent with her diagnoses. Laboratory Data: Reviewed. Impression: Major neurocognitive disorder Alzheimer vascular with delusion, depression, behavioral disturbance. Anxiety disorder unspecified. Impulse control disorder unspecified. Plan: No change from initial note. Assessment: Vital Signs/I&O: Vital Signs Date Time Temp Pulse Resp B/P (MAP) Pulse Ox O2 Delivery O2 Flow Rate FiO2 09/21/20 05:56 98.1 93 15 165/75 (105) 94 09/20/20 06:09 Room Air I & O 09/20/20 09/20/20 09/21/20 15:00 23:00 07:00 Intake Total 840 ml 600 ml Balance 840 ml 600 ml Current Medications: Meds: Current Medications Medications (Trade) Dose Ordered Sig/Jose Luis Route PRN Reason Start Time Stop Time Status Last Admin Dose Admin Acetaminophen (Tylenol) 650 mg PRN Q6HRS PRN PO MILD PAIN / TEMP > 100.3'F 09/11/20 16:15 Multi-Ingredient Ointment (Analgesic [place]) 1 maritza PRN QID PRN TP MUSCLE PAIN 09/11/20 16:15 Al Hydroxide/Mg Hydroxide (Mylanta Plus Xs) 15 ml PRN AFTMEALHC PRN PO DYSPEPSIA 09/11/20 16:15 Magnesium Hydroxide (Milk Of Magnesia) 2,400 mg PRN QHS PRN PO CONSTIPATION 09/11/20 16:15 Acetaminophen (Tylenol) 1,000 mg TID PO 09/11/20 21:00 09/20/20 20:07 Amlodipine Besylate (Norvasc) 5 mg DAILY PO 09/12/20 09:00 09/20/20 06:12 Vitamin D (Vitamin D3) 50,000 unit WEEKLY PO 09/16/20 09:00 09/16/20 08:06 Lactobacillus Rhamnosus (Culturelle) 1 cap BID PO 09/11/20 21:00 09/20/20 20:07 Lidocaine (Lidoderm) 1 patch DAILY TP 09/12/20 09:00 09/20/20 05:10 DC 09/19/20 08:51 Metformin HCl (Glucophage) 500 mg DAILYWBKFT PO 09/12/20 08:00 09/20/20 06:13 Olanzapine (ZyPREXA) 2.5 mg PRN Q4HRS PRN PO ANXIETY 09/11/20 16:15 09/17/20 15:45 DC 09/17/20 13:32 Olanzapine (ZyPREXA) 5 mg QHS PO 09/11/20 21:00 09/15/20 17:07 DC 09/14/20 19:25 Vitamin D (Vitamin D3) 1,000 unit DAILY PO 09/12/20 09:00 09/20/20 06:12 Cefdinir (Omnicef) 300 mg BID PO 09/12/20 09:00 09/16/20 21:01 DC 09/16/20 20:05 Mirtazapine (Remeron) 7.5 mg QHS PO 09/12/20 21:00 09/16/20 17:59 DC 09/15/20 20:14 Trazodone HCl (Desyrel) 50 mg PRN QHS PRN PO INSOMNIA 09/12/20 18:15 09/17/20 22:33 Melatonin (Melatonin) 3 mg HS PO 09/13/20 21:00 09/20/20 20:07 Quetiapine Fumarate (SEROquel) 12.5 mg 0900,1300,1700 PO 09/16/20 17:15 09/20/20 16:38 Mirtazapine (Remeron) 15 mg QHS PO 09/16/20 21:00 09/20/20 20:06 Sertraline HCl (Zoloft) 25 mg DAILY PO 09/17/20 09:00 09/20/20 08:59 DC 09/19/20 08:51 Sertraline HCl (Zoloft) 50 mg DAILY PO 09/20/20 09:00 09/20/20 08:18 Olanzapine (ZyPREXA) 2.5 mg PRN Q2HR PRN PO ANXIETY 09/17/20 15:45 09/20/20 16:38 Hydroxyzine HCl (Atarax) 25 mg TID PRN PRN PO ITCHING 09/17/20 15:45 09/20/20 16:38 Lidocaine (Lidoderm) 1 patch PRN DAILY PRN TP TOPICAL PAIN 09/20/20 05:15 Miscellaneous ([facility]oderm [facility] Removal) [facility] 09/[facility]/20 21:00 09/20/20 21:00 Current Medications Medications (Trade) Dose Ordered Sig/Jose Luis Route PRN Reason Start Time Stop Time Status Last Admin Dose Admin Sertraline HCl (Zoloft) 50 mg DAILY PO 09/20/20 09:00 09/20/20 08:18 Miscellaneous (Lidoderm Patch Removal) 1 ea [facility] 09/20/20 21:00 09/20/20 21:00 I have reviewed the current psychotropics carefully including drug interactions. Risk benefit ratio favors no change other than as noted in my dictated progress note. 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
[2020-09-21] MEDS: ACETAMINOPHEN 500 MG TABLET PO SCH ×3 (08:17→20:20)
[2020-09-21] MEDS: SERTRALINE 50 MG TABLET. PO SCH (08:17)
[2020-09-21] MEDS: CHOLECALCIFEROL (VITAMIN D3) 1,000 UNIT TABLET PO SCH (08:17)
[2020-09-21] MEDS: metFORMIN 500 MG TABLET PO SCH (08:17)
[2020-09-21] MEDS: LACTOBACILLUS RHAMNOSUS GG 1 CAPSULE. PO SCH ×2 (08:18→20:20)
[2020-09-21] MEDS: amLODIPine BESYLATE 5 MG TABLET PO SCH (08:18)
[2020-09-21] MEDS: QUEtiapine 25 MG TABLET. PO SCH ×3 (08:18→17:50)
--- NOTE | 2020-09-21 12:40 | TX PLAN ---
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 Per Shandra, pt is generally pretty good at masking when she isn't feeling well. Her baseling, according to Shandra is that she will tell you she is fine and that she is generally complacent on how she is feeling. Shandra states that is is generally confused and this is normal. Shandra reports that pt has a significant history of ETOH and drug usage, that has most likely contributed to her overall health condition and confusion. Additional Admission Comments: Per intake record, pt stated she wants to kill herself, yelling, threatening to hit others, name calling, insomnia, refusing cares, talking to son who isn't there. Problems Active Problems: lack of sleep, hallucinations, confusion, agitation Inactive Problems: None noted at this time. Pt Strengths/Limitations Ability for [place]: Poor Cognitive Functioning/Ability: Poor Communication Skills/Ability: Fair Financial Resources: Fair Insight/Judgement: Poor Intellectual Ability: Fair Physical Health: Poor Social Skills: Fair Stability in Family: Fair Stability in School/Work: Fair Verbal Skills: Fair Discharge Criteria Discharge Criteria: Adequate arrangements @DC, Verbal commit med comply, I mproved behavior, Improved mood/thought Other Discharge Comments: None at this time. Preliminary Discharge Plan Preliminary DC Plan: Current Living Arrange. Special Precautions Special Precautions: Agitation/Assault Fall Risk: Moderate Initial D/C Plan Pt plan is to return to [place]. Identified Discharge Needs: None noted at this time. Currently Utilized Resources Currently Utilized Resources/P: PCP-Dr. Jonny MACK/[facility] Referrals Community Resources: None noted at this time. Identified Problems/Hx/Goals Objectives/Short-Term Goals Short Term Goals: Control abnormal behavior, Dec. Hallucination/Delus, Dec. Outbursts, Medication Stabilization, Monitor Med Effects Short Term Goals in Patient's: Control delusions/hallucinations, reduce outbursts, stabilize medications to help improve mood. Interventions/Frequency Staff Interventions/Frequency&: Psychiatry to assess pt three times per week for medication management. Nursing to asses behaviors, monitor medications, and complete 15 minute checks daily. Social work to see pt at least two times weekly to aid in return to placement. Activities to encourage pt to participate in group activities daily. 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 Education: Pt graduated in [place] and has the equivalence of a high school education. She did attend real estate legal secretary school in [place] following high school. Community Follow-up PCP Community Provider/Family Inpu: Dtr-in-law/FREDERICK Christelle, is aware of pt's hospitalization at [facility]. She provided social history and is available for further informatin if needed. Treatment Plan Explained Patient/Commercial Decorator had this treatment plan explained to him/her as indicated by the signature below and has been given the opportunity to ask questions and make suggestions: Date: Patient/Commercial Decorator Signature: Status Update Update Pt eating about 65% of her meals and averaging 5 hours of sleep per night. She remains somewhat confused and is sometime fixated on things. Pt has poor memory and struggles comprehending requests. This, however, is close to her baseline. Pt has been med compliant and has not shown resistance to cares. She is more cooperative than at time of admission. Zoloft will be increased from the current 50mg dose to 75mg after three days. Pt will return to [place] once stable. GUICHO CHATMAN September 21, 2020 12:40
--- NOTE | 2020-09-21 12:41 | NUR ---
WEEKLY ACTIVITY THERAPY NOTE Date of Admission: 09/11/20 Date of AT Assessment: 09/14 Precipitating behaviors that initiated intake and admission: stated she wants to kill herself, yelling, threatening to hit others, name calling, insomnia, refusing cares, talking to son who's not there Goal aimed: increase relaxation and time management skills Initial Goal: Pt will participate in at least three individual or group Activity Therapy sessions before discharge. Weekly progress towards goal: did not achieve, 0/3 Group participation level: none Weekly highlights: Behaviors observed: fixated on e Monday afternoon and hard to redirect Plan: no change to goal Beneficial adaptations:
--- NOTE | 2020-09-21 15:39 | NUR ---
WEEKLY NOTE: Pt eating about 65% of her meals and averaging 5 hours of sleep per night. She remains somewhat confused and at times is fixated on things. Pt has poor memory and struggles comprehending requests. This, however, is close to her baseline. Pt has been compliant with taking medications crushed and has not shown resistance to cares. She is more cooperative than at time of admission. Zoloft will be increased from the current 50mg dose to 75mg after three days. Pt will return to [place] once stable. SHARRON contacted dtr-in-law/DPOA, Shandra, to provide an update. Shandra appreciative of call, but had to hang up as she had someone come in the shop. Shandra agreeable to receive a call later in the week. Updates will be sent to facility, [place] tomorrow.
[2020-09-21 15:44] VITALS: BP 134/61
[2020-09-21] MEDS: MIRTAZAPINE 15 MG TABLET PO SCH (20:20)
[2020-09-21] MEDS: MELATONIN 3 MG TABLET PO SCH (20:20)
[2020-09-21] MEDS: PATCH REMOVAL. MC SCH (21:00)
--- NOTE | 2020-09-21 21:50 | PDOC ---
Exam Note: Hasmukh Note: Please also refer to the separate dictated note~for this date of service dictated separately.~Patient seen individually. Discussed the patient with Nursing staff reviewed the chart.~Reviewed interim history and current functioning. Reviewed vital signs,~Labs/ Radiology~and current medications noted below. Continue current treatment with the changes noted in the dictated addendum note Assessment: Vital Signs/I&O: Vital Signs Date Time Temp Pulse Resp B/P (MAP) Pulse Ox O2 Delivery O2 Flow Rate FiO2 09/21/20 15:44 97.9 83 17 134/61 (85) 97 09/20/20 06:09 Room Air I & O 09/20/20 09/20/20 09/21/20 15:00 23:00 07:00 Intake Total 840 ml 600 ml Balance 840 ml 600 ml Current Medications: Meds: Current Medications Medications (Trade) Dose Ordered Sig/Jose Luis Route PRN Reason Start Time Stop Time Status Last Admin Dose Admin Acetaminophen (Tylenol) 650 mg PRN Q6HRS PRN PO MILD PAIN / TEMP > 100.3'F 09/11/20 16:15 Multi-Ingredient Ointment (Analgesic [place]) 1 maritza PRN QID PRN TP MUSCLE PAIN 09/11/20 16:15 Al Hydroxide/Mg Hydroxide (Mylanta Plus Xs) 15 ml PRN AFTMEALHC PRN PO DYSPEPSIA 09/11/20 16:15 Magnesium Hydroxide (Milk Of Magnesia) 2,400 mg PRN QHS PRN PO CONSTIPATION 09/11/20 16:15 Acetaminophen (Tylenol) 1,000 mg TID PO 09/11/20 21:00 09/21/20 20:20 Amlodipine Besylate (Norvasc) 5 mg DAILY PO 09/12/20 09:00 09/21/20 08:18 Vitamin D (Vitamin D3) 50,000 unit WEEKLY PO 09/16/20 09:00 09/16/20 08:06 Lactobacillus Rhamnosus (Culturelle) 1 cap BID PO 09/11/20 21:00 09/21/20 20:20 Lidocaine (Lidoderm) 1 patch DAILY TP 09/12/20 09:00 09/20/20 05:10 DC 09/19/20 08:51 Metformin HCl (Glucophage) 500 mg DAILYWBKFT PO 09/12/20 08:00 09/21/20 08:17 Olanzapine (ZyPREXA) 2.5 mg PRN Q4HRS PRN PO ANXIETY 09/11/20 16:15 09/17/20 15:45 DC 09/17/20 13:32 Olanzapine (ZyPREXA) 5 mg QHS PO 09/11/20 21:00 09/15/20 17:07 DC 09/14/20 19:25 Vitamin D (Vitamin D3) 1,000 unit DAILY PO 09/12/20 09:00 09/21/20 08:17 Cefdinir (Omnicef) 300 mg BID PO 09/12/20 09:00 09/16/20 21:01 DC 09/16/20 20:05 Mirtazapine (Remeron) 7.5 mg QHS PO 09/12/20 21:00 09/16/20 17:59 DC 09/15/20 20:14 Trazodone HCl (Desyrel) 50 mg PRN QHS PRN PO INSOMNIA 09/12/20 18:15 09/17/20 22:33 Melatonin (Melatonin) 3 mg HS PO 09/13/20 21:00 09/21/20 20:20 Quetiapine Fumarate (SEROquel) 12.5 mg 0900,1300,1700 PO 09/16/20 17:15 09/21/20 17:50 Mirtazapine (Remeron) 15 mg QHS PO 09/16/20 21:00 09/21/20 20:20 Sertraline HCl (Zoloft) 25 mg DAILY PO 09/17/20 09:00 09/20/20 08:59 DC 09/19/20 08:51 Sertraline HCl (Zoloft) 50 mg DAILY PO 09/20/20 09:00 09/22/20 10:01 09/21/20 08:17 Olanzapine (ZyPREXA) 2.5 mg PRN Q2HR PRN PO ANXIETY 09/17/20 15:45 09/20/20 16:38 Hydroxyzine HCl (Atarax) 25 mg TID PRN PRN PO ITCHING 09/17/20 15:45 09/20/20 16:38 Lidocaine (Lidoderm) 1 patch PRN DAILY PRN TP TOPICAL PAIN 09/20/20 05:15 Miscellaneous (Lidoderm Patch Removal) 1 ea QHS 09/20/20 21:00 09/20/20 21:00 Sertraline HCl (Zoloft) 75 mg DAILY PO 09/23/20 09:00 I have reviewed the current psychotropics carefully including drug interactions. Risk benefit ratio favors no change other than as noted in my dictated progress note. 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
[2020-09-21] MEDS: hydrOXYzine HCL 25 MG TABLET PO PRN (23:07)
[2020-09-21] MEDS: OLANZapine 2.5 MG TABLET PO PRN (23:08)
--- NOTE | 2020-09-22 00:06 | NUR ---
Last evening pt was confused and disorganized but pleasant and cooperative. She took meds crushed in pudding and was cooperative with cares. After going to bed she was quiet for awhile then began to yell about having an roommate and was becoming quite agitated. PRN zyprexa and atarax were given which worked after approx 45 mins she calmed and was returned to bed and is sleeping now.
[2020-09-22 04:44] VITALS: BP 158/69
[2020-09-22] MEDS: CHOLECALCIFEROL (VITAMIN D3) 1,000 UNIT TABLET PO SCH (08:33)
[2020-09-22] MEDS: LACTOBACILLUS RHAMNOSUS GG 1 CAPSULE. PO SCH ×2 (08:34→20:22)
[2020-09-22] MEDS: SERTRALINE 50 MG TABLET. PO SCH (08:34)
[2020-09-22] MEDS: metFORMIN 500 MG TABLET PO SCH (08:34)
[2020-09-22] MEDS: ACETAMINOPHEN 500 MG TABLET PO SCH ×3 (08:34→20:21)
[2020-09-22] MEDS: QUEtiapine 25 MG TABLET. PO SCH ×3 (08:34→17:24)
[2020-09-22] MEDS: amLODIPine BESYLATE 5 MG TABLET PO SCH (08:35)
[2020-09-22 15:25] VITALS: BP 111/77
--- NOTE | 2020-09-22 17:37 | NUR ---
NSG NOTE; SHIFT SUMMARY PT IS EASILY STARTLED; SHE JUMPS THEN YELLS AT WHOEVER STARTLED HER. SHE IS IMPATIENT, SARCASTIC AND DEMANDING AT TIMES. SHE HAS BEEN MED RESISTANT BUT ULTIMATELY TAKES HER MEDS. SHE HAS BEEN AWAKE AND ALERT TODAY AND REMAINED IN THE DAYROOM BETWEEN MEALS
--- NOTE | 2020-09-22 20:03 | NUR ---
Patient has been yelling at staff and peers about the location of her purse and demanding that it be brought to her. When staff tells her that her purse is in the safe she yells "I don't know". She is upset, wheeling fast in her wheelchair and is upsetting peers in the hallway and day room. She is unable to be redirected or reassured that her purse is in a safe place. She continues arguing and yelling and is escalating. PRN zyprexa and hydroxyzine given for agitation and psychosis.
[2020-09-22] MEDS: PATCH REMOVAL. MC SCH (20:19)
[2020-09-22] MEDS: MIRTAZAPINE 15 MG TABLET PO SCH (20:21)
[2020-09-22] MEDS: hydrOXYzine HCL 25 MG TABLET PO PRN (20:22)
[2020-09-22] MEDS: MELATONIN 3 MG TABLET PO SCH (20:22)
[2020-09-22] MEDS: OLANZapine 2.5 MG TABLET PO PRN (20:22)
--- NOTE | 2020-09-22 22:40 | PDOC ---
Exam Note: Hasmukh Note: Please also refer to the separate dictated note~for this date of service dictated separately.~Patient seen individually. Discussed the patient with Nursing staff reviewed the chart.~Reviewed interim history and current functioning. Reviewed vital signs,~Labs/ Radiology~and current medications noted below. Continue current treatment with the changes noted in the dictated addendum note Assessment: Vital Signs/I&O: Vital Signs Date Time Temp Pulse Resp B/P (MAP) Pulse Ox O2 Delivery O2 Flow Rate FiO2 09/22/20 15:25 97.7 85 16 111/77 (88) 98 09/20/20 06:09 Room Air I & O 09/21/20 09/21/20 09/22/20 15:00 23:00 07:00 Intake Total 720 ml 480 ml Balance 720 ml 480 ml Current Medications: Meds: Current Medications Medications (Trade) Dose Ordered Sig/Jose Luis Route PRN Reason Start Time Stop Time Status Last Admin Dose Admin Acetaminophen (Tylenol) 650 mg PRN Q6HRS PRN PO MILD PAIN / TEMP > 100.3'F 09/11/20 16:15 Multi-Ingredient Ointment (Analgesic [place]) 1 maritza PRN QID PRN TP MUSCLE PAIN 09/11/20 16:15 Al Hydroxide/Mg Hydroxide (Mylanta Plus Xs) 15 ml PRN AFTMEALHC PRN PO DYSPEPSIA 09/11/20 16:15 Magnesium Hydroxide (Milk Of Magnesia) 2,400 mg PRN QHS PRN PO CONSTIPATION 09/11/20 16:15 Acetaminophen (Tylenol) 1,000 mg TID PO 09/11/20 21:00 09/22/20 20:21 Amlodipine Besylate (Norvasc) 5 mg DAILY PO 09/12/20 09:00 09/22/20 08:35 Vitamin D (Vitamin D3) 50,000 unit WEEKLY PO 09/16/20 09:00 09/16/20 08:06 Lactobacillus Rhamnosus (Culturelle) 1 cap BID PO 09/11/20 21:00 09/22/20 20:22 Lidocaine (Lidoderm) 1 patch DAILY TP 09/12/20 09:00 09/20/20 05:10 DC 09/19/20 08:51 Metformin HCl (Glucophage) 500 mg DAILYWBKFT PO 09/12/20 08:00 09/22/20 08:34 Olanzapine (ZyPREXA) 2.5 mg PRN Q4HRS PRN PO ANXIETY 09/11/20 16:15 09/17/20 15:45 DC 09/17/20 13:32 Olanzapine (ZyPREXA) 5 mg QHS PO 09/11/20 21:00 09/15/20 17:07 DC 09/14/20 19:25 Vitamin D (Vitamin D3) 1,000 unit DAILY PO 09/12/20 09:00 09/22/20 08:33 Cefdinir (Omnicef) 300 mg BID PO 09/12/20 09:00 09/16/20 21:01 DC 09/16/20 20:05 Mirtazapine (Remeron) 7.5 mg QHS PO 09/12/20 21:00 09/16/20 17:59 DC 09/15/20 20:14 Trazodone HCl (Desyrel) 50 mg PRN QHS PRN PO INSOMNIA 09/12/20 18:15 09/17/20 22:33 Melatonin (Melatonin) 3 mg HS PO 09/13/20 21:00 09/22/20 20:22 Quetiapine Fumarate (SEROquel) 12.5 mg 0900,1300,1700 PO 09/16/20 17:15 09/22/20 17:24 Mirtazapine (Remeron) 15 mg QHS PO 09/16/20 21:00 09/22/20 20:21 Sertraline HCl (Zoloft) 25 mg DAILY PO 09/17/20 09:00 09/20/20 08:59 DC 09/19/20 08:51 Sertraline HCl (Zoloft) 50 mg DAILY PO 09/20/20 09:00 09/22/20 10:01 DC 09/22/20 08:34 Olanzapine (ZyPREXA) 2.5 mg PRN Q2HR PRN PO ANXIETY 09/17/20 15:45 09/22/20 20:22 Hydroxyzine HCl (Atarax) 25 mg TID PRN PRN PO ITCHING 09/17/20 15:45 09/22/20 20:22 Lidocaine (Lidoderm) 1 patch PRN DAILY PRN TP TOPICAL PAIN 09/20/20 05:15 Miscellaneous (Lidoderm Patch Removal) 1 ea QHS MC 09/20/20 21:00 09/21/20 21:00 Sertraline HCl (Zoloft) 75 mg DAILY PO 09/23/20 09:00 I have reviewed the current psychotropics carefully including drug interactions. Risk benefit ratio favors no change other than as noted in my dictated progress note. 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
--- NOTE | 2020-09-22 22:43 | NUR ---
Patient was calmer after PRNs were administered but remained disorganized, confused and oriented only to self. Patient cooperative with assessment and compliant with medications taken crushed in chocolate pudding. She was in her wheelchair in her room most of the night.
[2020-09-23 06:15] VITALS: BP 156/70
--- NOTE | 2020-09-23 07:46 | PDOC ---
Exam Note: Hasmukh Note: This note is a late entry for 09/21/2020 covers elements not covered in my initial note. Subjective: The patient was reviewed in the morning of 09/21/2020 for a treatment team meeting with Koki Rao, Ju Navarrete and Ela (social media sr strategy manager), Damaris, activity therapy and Steffanie XIE, discussed and reviewed the chart. She slept 7-1/2 hours previous night. Sleeping average 5 hours. Appetite is fair. She was somewhat agitated yesterday, obsessive, anxious. Received p.r.n. at 1630 hours. I met with her in her room this evening. She was less fixated on opening the closet today. Review of Systems: Ambulation impaired in wheelchair. No CV, , pulmonary, eye, ENT system symptoms on review. Reliability poor. Mental Status Exam: The patient is oriented to herself. Insight and judgment, recent and remote memory, attention and concentration, fund of knowledge is poor consistent with her diagnoses. Laboratory Data: Reviewed. Impression: Major neurocognitive disorder Alzheimer vascular with delusion, depression, behavioral disturbance. Anxiety disorder unspecified. Impulse control disorder unspecified. Plan: Continue psychotropics from initial note. Increase Zoloft to 75 mg a day after she has been on 50 mg for 3 days. Assessment: Vital Signs/I&O: Vital Signs Date Time Temp Pulse Resp B/P (MAP) Pulse Ox O2 Delivery O2 Flow Rate FiO2 09/23/20 06:15 98.6 101 18 156/70 (98) 96 09/20/20 06:09 Room Air I & O 09/22/20 09/22/20 09/23/20 15:00 23:00 07:00 Intake Total 600 ml 600 ml Balance 600 ml 600 ml Current Medications: Meds: Current Medications Medications (Trade) Dose Ordered Sig/Jose Luis Route PRN Reason Start Time Stop Time Status Last Admin Dose Admin Acetaminophen (Tylenol) 650 mg PRN Q6HRS PRN PO MILD PAIN / TEMP > 100.3'F 09/11/20 16:15 Multi-Ingredient Ointment (Analgesic [place]) 1 maritza PRN QID PRN TP MUSCLE PAIN 09/11/20 16:15 Al Hydroxide/Mg Hydroxide (Mylanta Plus Xs) 15 ml PRN AFTMEALHC PRN PO DYSPEPSIA 09/11/20 16:15 Magnesium Hydroxide (Milk Of Magnesia) 2,400 mg PRN QHS PRN PO CONSTIPATION 09/11/20 16:15 Acetaminophen (Tylenol) 1,000 mg TID PO 09/11/20 21:00 09/22/20 20:21 Amlodipine Besylate (Norvasc) 5 mg DAILY PO 09/12/20 09:00 09/22/20 08:35 Vitamin D (Vitamin D3) 50,000 unit WEEKLY PO 09/16/20 09:00 09/16/20 08:06 Lactobacillus Rhamnosus (Culturelle) 1 cap BID PO 09/11/20 21:00 09/22/20 20:22 Lidocaine (Lidoderm) 1 patch DAILY TP 09/12/20 09:00 09/20/20 05:10 DC 09/19/20 08:51 Metformin HCl (Glucophage) 500 mg DAILYWBKFT PO 09/12/20 08:00 09/22/20 08:34 Olanzapine (ZyPREXA) 2.5 mg PRN Q4HRS PRN PO ANXIETY 09/11/20 16:15 09/17/20 15:45 DC 09/17/20 13:32 Olanzapine (ZyPREXA) 5 mg QHS PO 09/11/20 21:00 09/15/20 17:07 DC 09/14/20 19:25 Vitamin D (Vitamin D3) 1,000 unit DAILY PO 09/12/20 09:00 09/22/20 08:33 Cefdinir (Omnicef) 300 mg BID PO 09/12/20 09:00 09/16/20 21:01 DC 09/16/20 20:05 Mirtazapine (Remeron) 7.5 mg QHS PO 09/12/20 21:00 09/16/20 17:59 DC 09/15/20 20:14 Trazodone HCl (Desyrel) 50 mg PRN QHS PRN PO INSOMNIA 09/12/20 18:15 09/17/20 22:33 Melatonin (Melatonin) 3 mg HS PO 09/13/20 21:00 09/22/20 20:22 Quetiapine Fumarate (SEROquel) 12.5 mg 0900,1300,1700 PO 09/16/20 17:15 09/22/20 17:24 Mirtazapine (Remeron) 15 mg QHS PO 09/16/20 21:00 09/22/20 20:21 Sertraline HCl (Zoloft) 25 mg DAILY PO 09/17/20 09:00 09/20/20 08:59 DC 09/19/20 08:51 Sertraline HCl (Zoloft) 50 mg DAILY PO 09/20/20 09:00 09/22/20 10:01 DC 09/22/20 08:34 Olanzapine (ZyPREXA) 2.5 mg PRN Q2HR PRN PO ANXIETY 09/17/20 15:45 09/22/20 20:22 Hydroxyzine HCl (Atarax) 25 mg TID PRN PRN PO ITCHING 09/17/20 15:45 09/22/20 20:22 Lidocaine (Lidoderm) 1 patch PRN DAILY PRN TP TOPICAL PAIN 09/20/20 05:15 Miscellaneous (Lidoderm Patch Removal) 1 ea QHS MC 09/20/20 21:00 09/21/20 21:00 Sertraline HCl (Zoloft) 75 mg DAILY PO 09/23/20 09:00 I have reviewed the current psychotropics carefully including drug interactions. Risk benefit ratio favors no change other than as noted in my dictated progress note. 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
[2020-09-23] MEDS: SERTRALINE 25 MG TABLET. PO SCH (08:26)
[2020-09-23] MEDS: metFORMIN 500 MG TABLET PO SCH (08:26)
[2020-09-23] MEDS: CHOLECALCIFEROL (VITAMIN D3) 1,000 UNIT TABLET PO SCH (08:26)
[2020-09-23] MEDS: amLODIPine BESYLATE 5 MG TABLET PO SCH (08:26)
[2020-09-23] MEDS: LACTOBACILLUS RHAMNOSUS GG 1 CAPSULE. PO SCH ×2 (08:26→20:56)
[2020-09-23] MEDS: QUEtiapine 25 MG TABLET. PO SCH ×3 (08:26→17:00)
[2020-09-23] MEDS: ACETAMINOPHEN 500 MG TABLET PO SCH ×3 (08:26→20:57)
[2020-09-23] MEDS: CHOLECALCIFEROL (VITAMIN D3) 50,000 UNIT CAPSULE PO SCH (09:00)
--- NOTE | 2020-09-23 12:28 | NUR ---
Pt has been appropriate so far this shift; A&O to self only. She remains confused and disorganized. She is compliant with medications crushed and mixed in pudding. She is able to make her needs known to staff. Absent of VH/AH/delusions thus far. She denies pain at this time and no PRN medications have been administered so far. Plan of care continues, will pass to next shift.
--- NOTE | 2020-09-23 13:18 | NUR ---
SHARRON faxed updates to pt facility, [facility].
--- NOTE | 2020-09-23 15:30 | NUR ---
SHARRON received call from Syeda at pt facility, [facility]. Syeda and SHARRON scheduled for DC on Monday09/28/20 provided facility received signed orders. After they receive the signed orders, they will schedule transportation. Syeda states that they have to do same day transportation scheduling because if they schedule the transportation and then something happens where the pt ends up not discharging, then they get billed. SHARRON will follow up with Syeda on Monday09/28/20 to ensure that pt is ready for d/c and that they have received what they need.
[2020-09-23 16:08] VITALS: BP 147/84
[2020-09-23] MEDS: MIRTAZAPINE 15 MG TABLET PO SCH (20:56)
[2020-09-23] MEDS: MELATONIN 3 MG TABLET PO SCH (20:56)
--- NOTE | 2020-09-23 21:52 | PDOC ---
Exam Note: Hasmukh Note: Please also refer to the separate dictated note~for this date of service dictated separately.~Patient seen individually. Discussed the patient with Nursing staff reviewed the chart.~Reviewed interim history and current functioning. Reviewed vital signs,~Labs/ Radiology~and current medications noted below. Continue current treatment with the changes noted in the dictated addendum note Assessment: Vital Signs/I&O: Vital Signs Date Time Temp Pulse Resp B/P (MAP) Pulse Ox O2 Delivery O2 Flow Rate FiO2 09/23/20 16:08 97.4 90 20 147/84 (105) 98 Room Air I & O 09/22/20 09/22/20 09/23/20 15:00 23:00 07:00 Intake Total 600 ml 600 ml Balance 600 ml 600 ml Current Medications: Meds: Current Medications Medications (Trade) Dose Ordered Sig/Jose Luis Route PRN Reason Start Time Stop Time Status Last Admin Dose Admin Acetaminophen (Tylenol) 650 mg PRN Q6HRS PRN PO MILD PAIN / TEMP > 100.3'F 09/11/20 16:15 Multi-Ingredient Ointment (Analgesic [place]) 1 maritza PRN QID PRN TP MUSCLE PAIN 09/11/20 16:15 Al Hydroxide/Mg Hydroxide (Mylanta Plus Xs) 15 ml PRN AFTMEALHC PRN PO DYSPEPSIA 09/11/20 16:15 Magnesium Hydroxide (Milk Of Magnesia) 2,400 mg PRN QHS PRN PO CONSTIPATION 09/11/20 16:15 Acetaminophen (Tylenol) 1,000 mg TID PO 09/11/20 21:00 09/23/20 20:57 Amlodipine Besylate (Norvasc) 5 mg DAILY PO 09/12/20 09:00 09/23/20 08:26 Vitamin D (Vitamin D3) 50,000 unit WEEKLY PO 09/16/20 09:00 09/23/20 09:00 Lactobacillus Rhamnosus (Culturelle) 1 cap BID PO 09/11/20 21:00 09/23/20 20:56 Lidocaine (Lidoderm) 1 patch DAILY TP 09/12/20 09:00 09/20/20 05:10 DC 09/19/20 08:51 Metformin HCl (Glucophage) 500 mg DAILYWBKFT PO 09/12/20 08:00 09/23/20 08:26 Olanzapine (ZyPREXA) 2.5 mg PRN Q4HRS PRN PO ANXIETY 09/11/20 16:15 09/17/20 15:45 DC 09/17/20 13:32 Olanzapine (ZyPREXA) 5 mg QHS PO 09/11/20 21:00 09/15/20 17:07 DC 09/14/20 19:25 Vitamin D (Vitamin D3) 1,000 unit DAILY PO 09/12/20 09:00 09/23/20 08:26 Cefdinir (Omnicef) 300 mg BID PO 09/12/20 09:00 09/16/20 21:01 DC 09/16/20 20:05 Mirtazapine (Remeron) 7.5 mg QHS PO 09/12/20 21:00 09/16/20 17:59 DC 09/15/20 20:14 Trazodone HCl (Desyrel) 50 mg PRN QHS PRN PO INSOMNIA 09/12/20 18:15 09/17/20 22:33 Melatonin (Melatonin) 3 mg HS PO 09/13/20 21:00 09/23/20 20:56 Quetiapine Fumarate (SEROquel) 12.5 mg 0900,1300,1700 PO 09/16/20 17:15 09/23/20 17:30 DC 09/23/20 17:00 Mirtazapine (Remeron) 15 mg QHS PO 09/16/20 21:00 09/23/20 20:56 Sertraline HCl (Zoloft) 25 mg DAILY PO 09/17/20 09:00 09/20/20 08:59 DC 09/19/20 08:51 Sertraline HCl (Zoloft) 50 mg DAILY PO 09/20/20 09:00 09/22/20 10:01 DC 09/22/20 08:34 Olanzapine (ZyPREXA) 2.5 mg PRN Q2HR PRN PO ANXIETY 09/17/20 15:45 09/22/20 20:22 Hydroxyzine HCl (Atarax) 25 mg TID PRN PRN PO ITCHING 09/17/20 15:45 09/22/20 20:22 Lidocaine (Lidoderm) 1 patch PRN DAILY PRN TP TOPICAL PAIN 09/20/20 05:15 Miscellaneous (Lidoderm Patch Removal) 1 ea QHS 09/20/20 21:00 09/23/20 20:12 DC 09/21/20 21:00 Sertraline HCl (Zoloft) 75 mg DAILY PO 09/23/20 09:00 09/23/20 08:26 Quetiapine Fumarate (SEROquel) 12.5 mg 0900,1700 PO 09/24/20 09:00 Quetiapine Fumarate (SEROquel) 25 mg 1300 PO 09/24/20 13:00 Current Medications Medications (Trade) Dose Ordered Sig/Jose Luis Route PRN Reason Start Time Stop Time Status Last Admin Dose Admin Sertraline HCl (Zoloft) 75 mg DAILY PO 09/23/20 09:00 09/23/20 08:26 I have reviewed the current psychotropics carefully including drug interactions. Risk benefit ratio favors no change other than as noted in my dictated progress note. 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
--- NOTE | 2020-09-23 22:45 | NUR ---
Patient has been calm and cooperative this shift. She had wanted to ask the nurse a question but couldn't remember what it was, she was able to laugh it off and did not get mad tonight. 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 She does not seem delusional. Patient was not agitated and was cooperative with staff tonight. No adverse behaviors noted.
[2020-09-23] MEDS: traZODone 50 MG TABLET. PO PRN (23:39)
[2020-09-23] MEDS: hydrOXYzine HCL 25 MG TABLET PO PRN (23:39)
[2020-09-23] MEDS: OLANZapine 2.5 MG TABLET PO PRN (23:40)
--- NOTE | 2020-09-23 23:40 | NUR ---
Patient became very agitated and got out of bed when her room mate was being put to bed. Patient is yelling and delusional, she believes she must get home because her 2 month old baby is home alone. At one point in the conversation she stated the child was a teenager. Patient demanding her car so she can get home. Patient is unable to be verbally redirected and became more agitated when talking to staff. PRN zyprexa and atarax given for agitation/psychosis and trazodone given for insomnia. Will continue to monitor.
[2020-09-24 06:30] VITALS: BP 144/73
--- NOTE | 2020-09-24 06:55 | PDOC ---
Exam Note: Hasmukh Note: This note is a late entry for 09/22/2020 covers elements not covered in my initial note. Subjective: The patient was seen individually in the evening of 09/22/2020 with Steffanie XIE, discussed and reviewed the chart. She slept 4-1/4 hours previous night. She startles easily, compliant with medications. Review of Systems: Ambulation impaired in wheelchair. No CV, , pulmonary, eye, ENT system symptoms on review. Mental Status Exam: The patient is oriented to herself. Insight and judgment, recent and remote memory, attention and concentration, fund of knowledge is poor consistent with her diagnoses. Laboratory Data: Reviewed. Impression: Major neurocognitive disorder Alzheimer vascular with delusion, depression, behavioral disturbance. Anxiety disorder unspecified. Impulse control disorder unspecified. Plan: Continue psychotropics from initial note. We will increase Zoloft from 50 mg to 75 mg a day after she has been on 50 mg for 3 days. Assessment: Vital Signs/I&O: Vital Signs Date Time Temp Pulse Resp B/P (MAP) Pulse Ox O2 Delivery O2 Flow Rate FiO2 09/24/20 06:30 97.8 105 20 144/73 (96) 97 Room Air I & O 09/23/20 09/23/20 09/24/20 15:00 23:00 07:00 Intake Total 600 ml 120 ml Balance 600 ml 120 ml Current Medications: Meds: Current Medications Medications (Trade) Dose Ordered Sig/Jose Luis Route PRN Reason Start Time Stop Time Status Last Admin Dose Admin Acetaminophen (Tylenol) 650 mg PRN Q6HRS PRN PO MILD PAIN / TEMP > 100.3'F 09/11/20 16:15 Multi-Ingredient Ointment (Analgesic [place]) 1 maritza PRN QID PRN TP MUSCLE PAIN 09/11/20 16:15 Al Hydroxide/Mg Hydroxide (Mylanta Plus Xs) 15 ml PRN AFTMEALHC PRN PO DYSPEPSIA 09/11/20 16:15 Magnesium Hydroxide (Milk Of Magnesia) 2,400 mg PRN QHS PRN PO CONSTIPATION 09/11/20 16:15 Acetaminophen (Tylenol) 1,000 mg TID PO 09/11/20 21:00 09/23/20 20:57 Amlodipine Besylate (Norvasc) 5 mg DAILY PO 09/12/20 09:00 09/23/20 08:26 Vitamin D (Vitamin D3) 50,000 unit WEEKLY PO 09/16/20 09:00 09/23/20 09:00 Lactobacillus Rhamnosus (Culturelle) 1 cap BID PO 09/11/20 21:00 09/23/20 20:56 Lidocaine (Lidoderm) 1 patch DAILY TP 09/12/20 09:00 09/20/20 05:10 DC 09/19/20 08:51 Metformin HCl (Glucophage) 500 mg DAILYWBKFT PO 09/12/20 08:00 09/23/20 08:26 Olanzapine (ZyPREXA) 2.5 mg PRN Q4HRS PRN PO ANXIETY 09/11/20 16:15 09/17/20 15:45 DC 09/17/20 13:32 Olanzapine (ZyPREXA) 5 mg QHS PO 09/11/20 21:00 09/15/20 17:07 DC 09/14/20 19:25 Vitamin D (Vitamin D3) 1,000 unit DAILY PO 09/12/20 09:00 09/23/20 08:26 Cefdinir (Omnicef) 300 mg BID PO 09/12/20 09:00 09/16/20 21:01 DC 09/16/20 20:05 Mirtazapine (Remeron) 7.5 mg QHS PO 09/12/20 21:00 09/16/20 17:59 DC 09/15/20 20:14 Trazodone HCl (Desyrel) 50 mg PRN QHS PRN PO INSOMNIA 09/12/20 18:15 09/23/20 23:39 Melatonin (Melatonin) 3 mg HS PO 09/13/20 21:00 09/23/20 20:56 Quetiapine Fumarate (SEROquel) 12.5 mg 0900,1300,1700 PO 09/16/20 17:15 09/23/20 17:30 DC 09/23/20 17:00 Mirtazapine (Remeron) 15 mg QHS PO 09/16/20 21:00 09/23/20 20:56 Sertraline HCl (Zoloft) 25 mg DAILY PO 09/17/20 09:00 09/20/20 08:59 DC 09/19/20 08:51 Sertraline HCl (Zoloft) 50 mg DAILY PO 09/20/20 09:00 09/22/20 10:01 DC 09/22/20 08:34 Olanzapine (ZyPREXA) 2.5 mg PRN Q2HR PRN PO ANXIETY 09/17/20 15:45 09/23/20 23:40 Hydroxyzine HCl (Atarax) 25 mg TID PRN PRN PO ITCHING 09/17/20 15:45 09/23/20 23:39 Lidocaine (Lidoderm) 1 patch PRN DAILY PRN TP TOPICAL PAIN 09/20/20 05:15 Miscellaneous (Lidoderm Patch Removal) 1 ea QHS MC 09/20/20 21:00 09/23/20 20:12 DC 09/21/20 21:00 Sertraline HCl (Zoloft) 75 mg DAILY PO 09/23/20 09:00 09/23/20 08:26 Quetiapine Fumarate (SEROquel) 12.5 mg 0900,1700 PO 09/24/20 09:00 Quetiapine Fumarate (SEROquel) 25 mg 1300 PO 09/24/20 13:00 Current Medications Medications (Trade) Dose Ordered Sig/Jose Luis Route PRN Reason Start Time Stop Time Status Last Admin Dose Admin Sertraline HCl (Zoloft) 75 mg DAILY PO 09/23/20 09:00 09/23/20 08:26 I have reviewed the current psychotropics carefully including drug interactions. Risk benefit ratio favors no change other than as noted in my dictated progress note. 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
--- NOTE | 2020-09-24 07:33 | PDOC ---
Exam Note: Hasmukh Note: This note is a late entry for 09/23/2020 covers elements not covered in my initial note. Subjective: The patient was seen individually in the evening of 09/23/2020 with Rabia XIE, discussed and reviewed the chart. She slept 6-1/2 hours previous night. She remains disorganized, agitated at night, looking for her purse. In the evening she was yelling, swearing secondary to being overtly stimulated. Review of Systems: Ambulation impaired in wheelchair. No CV, , pulmonary, eye, ENT system symptoms on review. Mental Status Exam: The patient is oriented to herself. Insight and judgment, recent and remote memory, attention and concentration, fund of knowledge is poor consistent with her diagnoses. Laboratory Data: Reviewed. Impression: Major neurocognitive disorder Alzheimer vascular with delusion, depression, behavioral disturbance. Anxiety disorder unspecified. Impulse control disorder unspecified. Plan: Continue psychotropics from initial note. The patient is currently on Seroquel 12.5 mg t.i.d. We will increase the second dosage to 25 mg. Assessment: Vital Signs/I&O: Vital Signs Date Time Temp Pulse Resp B/P (MAP) Pulse Ox O2 Delivery O2 Flow Rate FiO2 09/24/20 06:30 97.8 105 20 144/73 (96) 97 Room Air I & O 09/23/20 09/23/20 09/24/20 15:00 23:00 07:00 Intake Total 600 ml 120 ml Balance 600 ml 120 ml Current Medications: Meds: Current Medications Medications (Trade) Dose Ordered Sig/Jose Luis Route PRN Reason Start Time Stop Time Status Last Admin Dose Admin Acetaminophen (Tylenol) 650 mg PRN Q6HRS PRN PO MILD PAIN / TEMP > 100.3'F 09/11/20 16:15 Multi-Ingredient Ointment (Analgesic [place]) 1 maritza PRN QID PRN TP MUSCLE PAIN 09/11/20 16:15 Al Hydroxide/Mg Hydroxide (Mylanta Plus Xs) 15 ml PRN AFTMEALHC PRN PO DYSPEPSIA 09/11/20 16:15 Magnesium Hydroxide (Milk Of Magnesia) 2,400 mg PRN QHS PRN PO CONSTIPATION 09/11/20 16:15 Acetaminophen (Tylenol) 1,000 mg TID PO 09/11/20 21:00 09/23/20 20:57 Amlodipine Besylate (Norvasc) 5 mg DAILY PO 09/12/20 09:00 09/23/20 08:26 Vitamin D (Vitamin D3) 50,000 unit WEEKLY PO 09/16/20 09:00 09/23/20 09:00 Lactobacillus Rhamnosus (Culturelle) 1 cap BID PO 09/11/20 21:00 09/23/20 20:56 Lidocaine (Lidoderm) 1 patch DAILY TP 09/12/20 09:00 09/20/20 05:10 DC 09/19/20 08:51 Metformin HCl (Glucophage) 500 mg DAILYWBKFT PO 09/12/20 08:00 09/23/20 08:26 Olanzapine (ZyPREXA) 2.5 mg PRN Q4HRS PRN PO ANXIETY 09/11/20 16:15 09/17/20 15:45 DC 09/17/20 13:32 Olanzapine (ZyPREXA) 5 mg QHS PO 09/11/20 21:00 09/15/20 17:07 DC 09/14/20 19:25 Vitamin D (Vitamin D3) 1,000 unit DAILY PO 09/12/20 09:00 09/23/20 08:26 Cefdinir (Omnicef) 300 mg BID PO 09/12/20 09:00 09/16/20 21:01 DC 09/16/20 20:05 Mirtazapine (Remeron) 7.5 mg QHS PO 09/12/20 21:00 09/16/20 17:59 DC 09/15/20 20:14 Trazodone HCl (Desyrel) 50 mg PRN QHS PRN PO INSOMNIA 09/12/20 18:15 09/23/20 23:39 Melatonin (Melatonin) 3 mg HS PO 09/13/20 21:00 09/23/20 20:56 Quetiapine Fumarate (SEROquel) 12.5 mg 0900,1300,1700 PO 09/16/20 17:15 09/23/20 17:30 DC 09/23/20 17:00 Mirtazapine (Remeron) 15 mg QHS PO 09/16/20 21:00 09/23/20 20:56 Sertraline HCl (Zoloft) 25 mg DAILY PO 09/17/20 09:00 09/20/20 08:59 DC 09/19/20 08:51 Sertraline HCl (Zoloft) 50 mg DAILY PO 09/20/20 09:00 09/22/20 10:01 DC 09/22/20 08:34 Olanzapine (ZyPREXA) 2.5 mg PRN Q2HR PRN PO ANXIETY 09/17/20 15:45 09/23/20 23:40 Hydroxyzine HCl (Atarax) 25 mg TID PRN PRN PO ITCHING 09/17/20 15:45 09/23/20 23:39 Lidocaine (Lidoderm) 1 patch PRN DAILY PRN TP TOPICAL PAIN 09/20/20 05:15 Miscellaneous (Lidoderm Patch Removal) 1 ea QHS MC 09/20/20 21:00 09/23/20 20:12 DC 09/21/20 21:00 Sertraline HCl (Zoloft) 75 mg DAILY PO 09/23/20 09:00 09/23/20 08:26 Quetiapine Fumarate (SEROquel) 12.5 mg 0900,1700 PO 09/24/20 09:00 Quetiapine Fumarate (SEROquel) 25 mg 1300 PO 09/24/20 13:00 Current Medications Medications (Trade) Dose Ordered Sig/Jose Luis Route PRN Reason Start Time Stop Time Status Last Admin Dose Admin Sertraline HCl (Zoloft) 75 mg DAILY PO 09/23/20 09:00 09/23/20 08:26 I have reviewed the current psychotropics carefully including drug interactions. Risk benefit ratio favors no change other than as noted in my dictated progress note. 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
[2020-09-24] MEDS: CHOLECALCIFEROL (VITAMIN D3) 1,000 UNIT TABLET PO SCH (08:19)
[2020-09-24] MEDS: LACTOBACILLUS RHAMNOSUS GG 1 CAPSULE. PO SCH ×2 (08:20→20:44)
[2020-09-24] MEDS: SERTRALINE 25 MG TABLET. PO SCH (08:20)
[2020-09-24] MEDS: metFORMIN 500 MG TABLET PO SCH (08:20)
[2020-09-24] MEDS: amLODIPine BESYLATE 5 MG TABLET PO SCH (08:20)
[2020-09-24] MEDS: ACETAMINOPHEN 500 MG TABLET PO SCH ×3 (08:20→20:45)
[2020-09-24] MEDS: QUEtiapine 25 MG TABLET. PO SCH ×3 (09:00→16:52)
--- NOTE | 2020-09-24 10:32 | NUR ---
Pt is A&O to self only,appropriate, confused, and disorganized. She is compliant with medications crushed and mixed in yogurt. She is able to make her needs known to staff. Absent of SI/HI/VH/AH/delusions thus far. She denies pain at this time and no PRN medications have been administered so far. Plan of care continues, will pass to next shift.
--- NOTE | 2020-09-24 13:34 | TX PLAN ---
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 Per Shandra, pt is generally pretty good at masking when she isn't feeling well. Her baseling, according to Shandra is that she will tell you she is fine and that she is generally complacent on how she is feeling. Shandra states that is is generally confused and this is normal. Shandra reports that pt has a significant history of ETOH and drug usage, that has most likely contributed to her overall health condition and confusion. Additional Admission Comments: Per intake record, pt stated she wants to kill herself, yelling, threatening to hit others, name calling, insomnia, refusing cares, talking to son who isn't there. Problems Active Problems: lack of sleep, hallucinations, confusion, agitation Inactive Problems: None noted at this time. Pt Strengths/Limitations Ability for [place]: Poor Cognitive Functioning/Ability: Poor Communication Skills/Ability: Fair Financial Resources: Fair Insight/Judgement: Poor Intellectual Ability: Fair Physical Health: Poor Social Skills: Fair Stability in Family: Fair Stability in School/Work: Fair Verbal Skills: Fair Discharge Criteria Discharge Criteria: Adequate arrangements @DC, Verbal commit med comply, I mproved behavior, Improved mood/thought Other Discharge Comments: None at this time. Preliminary Discharge Plan Preliminary DC Plan: Current Living Arrange. Special Precautions Special Precautions: Agitation/Assault Fall Risk: Moderate Initial D/C Plan Pt plan is to return to [place]. Identified Discharge Needs: None noted at this time. Currently Utilized Resources Currently Utilized Resources/P: PCP-Dr. Jonny MACK/[facility] Referrals Community Resources: None noted at this time. Identified Problems/Hx/Goals Objectives/Short-Term Goals Short Term Goals: Control abnormal behavior, Dec. Hallucination/Delus, Dec. Outbursts, Medication Stabilization, Monitor Med Effects Short Term Goals in Patient's: Control delusions/hallucinations, reduce outbursts, stabilize medications to help improve mood. Interventions/Frequency Staff Interventions/Frequency&: Psychiatry to assess pt three times per week for medication management. Nursing to asses behaviors, monitor medications, and complete 15 minute checks daily. Social work to see pt at least two times weekly to aid in return to placement. Activities to encourage pt to participate in group activities daily. 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 She was able to interview several [place] celebrities. Education: Pt graduated in [place] and has the equivalence of a high school education. She did attend pigment and lacquer mixer school in [place] following high school. Community Follow-up PCP Community Provider/Family Inpu: Dtr-in-law/FREDERICK Christelle, is aware of pt's hospitalization at [facility]. She provided social history and is available for further informatin if needed. Treatment Plan Explained Patient/Mushroom Growing Supervisor had this treatment plan explained to him/her as indicated by the signature below and has been given the opportunity to ask questions and make suggestions: Date: Patient/Mushroom Growing Supervisor Signature: Status Update Update Pt continues to eat about 65% of her meals and averages 5 hours of sleep per night. She, also, somewhat remains confused and is sometime fixated on things such as getting her purse. Pt continues to show confusion and will fluctuate in being agitated and irritable and then calm, cooperative, and compliant. When irritable, pt will yell and swear. This seems secondary to being overly stimulated. Pt's Seroquel 1300 dosage will be increased from 12.5 mg to 25 mg. She remains on the 12.5 mg dosage of Seroquel at 0900 and 1700. Her other psychotropic medications are Zyprexa 2.5 mg Q2H PRN, Trazodone 50 mg PRN QHS MRx1, Melatonin 3 mg HS, Hydroxyzine 25 mg TID PRN, Zoloft 75 mg daily. Pt is scheduled for discharge on 09/28/20 back to [place] provided the weekend goes well and facility receives sign med orders over the weekend and facility can get transportation scheduled. GUICHO CHATMAN September 24, 2020 13:33
--- NOTE | 2020-09-24 13:50 | NUR ---
SHARRON spoke with pt DPOA, Shandra, to provide update and inform of d/c being scheduled for Monday09/28/20 provided pt does well over weekend and signed med orders are received over the weekend at pt facility. SHARRON explained that I would call back on Monday to confirm. Shandra appreciative of call.
[2020-09-24 15:44] VITALS: BP 157/74
--- NOTE | 2020-09-24 16:29 | NUR ---
SW observed Marlene to be irritated in the hallway as a peer was blocking her ability to get through. SW assisted peer to move to the side of the cortez to allow Marlene to get through. Another peer ambulated up next to aMrlene and Marlene began to scream, raising a full Gatorade bottle as if she was going to strike peer or this worker. SW assisted peer to move away from the situation and allow Marlene time to calm. SHARRON informed Marlene's nurse of the above observation.
[2020-09-24] MEDS: OLANZapine 2.5 MG TABLET PO PRN ×2 (18:20→21:36)
[2020-09-24] MEDS: hydrOXYzine HCL 25 MG TABLET PO PRN ×2 (18:20→21:36)
--- NOTE | 2020-09-24 18:20 | NUR ---
Pt showing high anxiety. Yelling at staff and patients alike, obsessive ruminating about locating her watch again. Verbal de-escalation and distraction unsuccessful. PRN Zyprexa 2.5 mg PO and PRN Hydroxyzine 25 mg PO administered.
[2020-09-24] MEDS: MIRTAZAPINE 15 MG TABLET PO SCH (20:44)
[2020-09-24] MEDS: traZODone 50 MG TABLET. PO PRN (20:45)
[2020-09-24] MEDS: MELATONIN 3 MG TABLET PO SCH (20:45)
--- NOTE | 2020-09-24 23:59 | NUR ---
Patient is located in the day room on assumption of care, wheeling around in her wheelchair. Initially compliant with assessments and medications crushed in pudding. She is anxious, disorganized, confused. Perseverating about finding her purse, redirection unsuccessful. Then she began looking around for her baby son, not amenable to reorientation, getting progressively more agitated with each attempt. PRN Atarax and Zydis given at 2138 with little effect. Patient continues to be very anxious and agitated, so she was escorted to the quiet room for deescalation. After some time, patient began to slow down. No further agitation so far this shift. She appears to be sleeping comfortably at present time. Will continue to monitor.
[2020-09-25 05:53] VITALS: BP 146/68
--- NOTE | 2020-09-25 07:46 | PDOC ---
Exam Note: Hasmukh Note: This note is a late entry for 09/24/2020 covers elements not covered in my initial note. Subjective: The patient was reviewed in the morning of 09/24/2020 for a treatment team meeting with Koki Rao, uJ Navarrete and Ela (social work lecturer), Damaris, activity therapy and Rabia XIE, discussed and reviewed the chart. She slept 4-1/4 hours previous night. She is resistive to medications. She was making threatening gestures to another patient who was standing next to her. Received Zyprexa and hydroxyzine at 6 p.m. She was also seen in the evening with Odell XIE. Review of Systems: Ambulation impaired in wheelchair. No CV, , pulmonary, eye, ENT system symptoms on review. Mental Status Exam: The patient is oriented to herself. Insight and judgment, recent and remote memory, attention and concentration, fund of knowledge is poor consistent with her diagnoses. Laboratory Data: Reviewed. Impression: Major neurocognitive disorder Alzheimer vascular with delusion, depression, behavioral disturbance. Anxiety disorder unspecified. Impulse control disorder unspecified. Plan: Continue psychotropics from initial note. We will go ahead and increase Seroquel from 12.5 mg t.i.d. to 25 mg t.i.d. on account of her mood vacillation and agitation, psychosis. Continue rest of the psychotropics. Adjust as clin ically indicated. Assessment: Vital Signs/I&O: Vital Signs Date Time Temp Pulse Resp B/P (MAP) Pulse Ox O2 Delivery O2 Flow Rate FiO2 09/25/20 05:53 96.2 100 18 146/68 (94) 97 09/24/20 15:44 Room Air I & O 09/24/20 09/24/20 09/25/20 15:00 23:00 07:00 Intake Total 460 ml 360 ml Balance 460 ml 360 ml Current Medications: Meds: Current Medications Medications (Trade) Dose Ordered Sig/Jose Luis Route PRN Reason Start Time Stop Time Status Last Admin Dose Admin Acetaminophen (Tylenol) 650 mg PRN Q6HRS PRN PO MILD PAIN / TEMP > 100.3'F 09/11/20 16:15 Multi-Ingredient Ointment (Analgesic [place]) 1 maritza PRN QID PRN TP MUSCLE PAIN 09/11/20 16:15 Al Hydroxide/Mg Hydroxide (Mylanta Plus Xs) 15 ml PRN AFTMEALHC PRN PO DYSPEPSIA 09/11/20 16:15 Magnesium Hydroxide (Milk Of Magnesia) 2,400 mg PRN QHS PRN PO CONSTIPATION 09/11/20 16:15 Acetaminophen (Tylenol) 1,000 mg TID PO 09/11/20 21:00 09/24/20 20:45 Amlodipine Besylate (Norvasc) 5 mg DAILY PO 09/12/20 09:00 09/24/20 08:20 Vitamin D (Vitamin D3) 50,000 unit WEEKLY PO 09/16/20 09:00 09/23/20 09:00 Lactobacillus Rhamnosus (Culturelle) 1 cap BID PO 09/11/20 21:00 09/24/20 20:44 Lidocaine (Lidoderm) 1 patch DAILY TP 09/12/20 09:00 09/20/20 05:10 DC 09/19/20 08:51 Metformin HCl (Glucophage) 500 mg DAILYWBKFT PO 09/12/20 08:00 09/24/20 08:20 Olanzapine (ZyPREXA) 2.5 mg PRN Q4HRS PRN PO ANXIETY 09/11/20 16:15 09/17/20 15:45 DC 09/17/20 13:32 Olanzapine (ZyPREXA) 5 mg QHS PO 09/11/20 21:00 09/15/20 17:07 DC 09/14/20 19:25 Vitamin D (Vitamin D3) 1,000 unit DAILY PO 09/12/20 09:00 09/24/20 08:19 Cefdinir (Omnicef) 300 mg BID PO 09/12/20 09:00 09/16/20 21:01 DC 09/16/20 20:05 Mirtazapine (Remeron) 7.5 mg QHS PO 09/12/20 21:00 09/16/20 17:59 DC 09/15/20 20:14 Trazodone HCl (Desyrel) 50 mg PRN QHS PRN PO INSOMNIA 09/12/20 18:15 09/24/20 20:45 Melatonin (Melatonin) 3 mg HS PO 09/13/20 21:00 09/24/20 20:45 Quetiapine Fumarate (SEROquel) 12.5 mg 0900,1300,1700 PO 09/16/20 17:15 09/23/20 17:30 DC 09/23/20 17:00 Mirtazapine (Remeron) 15 mg QHS PO 09/16/20 21:00 09/24/20 20:44 Sertraline HCl (Zoloft) 25 mg DAILY PO 09/17/20 09:00 09/20/20 08:59 DC 09/19/20 08:51 Sertraline HCl (Zoloft) 50 mg DAILY PO 09/20/20 09:00 09/22/20 10:01 DC 09/22/20 08:34 Olanzapine (ZyPREXA) 2.5 mg PRN Q2HR PRN PO ANXIETY 09/17/20 15:45 09/24/20 21:36 Hydroxyzine HCl (Atarax) 25 mg TID PRN PRN PO ITCHING 09/17/20 15:45 09/24/20 21:36 Lidocaine (Lidoderm) 1 patch PRN DAILY PRN TP TOPICAL PAIN 09/20/20 05:15 Miscellaneous (Lidoderm Patch Removal) 1 ea QHS MC 09/20/20 21:00 09/23/20 20:12 DC 09/21/20 21:00 Sertraline HCl (Zoloft) 75 mg DAILY PO 09/23/20 09:00 09/24/20 08:20 Quetiapine Fumarate (SEROquel) 12.5 mg 0900,1700 PO 09/24/20 09:00 09/25/20 03:14 DC 09/24/20 16:52 Quetiapine Fumarate (SEROquel) 25 mg 1300 PO 09/24/20 13:00 09/24/20 15:10 Quetiapine Fumarate (SEROquel) 25 mg 0900,1700 PO 09/25/20 09:00 Current Medications Medications (Trade) Dose Ordered Sig/Jose Luis Route PRN Reason Start Time Stop Time Status Last Admin Dose Admin Quetiapine Fumarate (SEROquel) 12.5 mg 0900,1700 PO 09/24/20 09:00 09/25/20 03:14 DC 09/24/20 16:52 Quetiapine Fumarate (SEROquel) 25 mg 1300 PO 09/24/20 13:00 09/24/20 15:10 I have reviewed the current psychotropics carefully including drug interactions. Risk benefit ratio favors no change other than as noted in my dictated progress note. 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
[2020-09-25] MEDS: CHOLECALCIFEROL (VITAMIN D3) 1,000 UNIT TABLET PO SCH (08:24)
[2020-09-25] MEDS: QUEtiapine 25 MG TABLET. PO SCH ×3 (08:24→17:20)
[2020-09-25] MEDS: OLANZapine 2.5 MG TABLET PO PRN ×2 (08:24→20:37)
[2020-09-25] MEDS: metFORMIN 500 MG TABLET PO SCH (08:24)
[2020-09-25] MEDS: hydrOXYzine HCL 25 MG TABLET PO PRN ×2 (08:24→20:37)
[2020-09-25] MEDS: ACETAMINOPHEN 500 MG TABLET PO SCH ×4 (08:24→20:38)
[2020-09-25] MEDS: LACTOBACILLUS RHAMNOSUS GG 1 CAPSULE. PO SCH ×2 (08:24→20:38)
[2020-09-25] MEDS: amLODIPine BESYLATE 5 MG TABLET PO SCH (08:24)
[2020-09-25] MEDS: SERTRALINE 25 MG TABLET. PO SCH (08:24)
--- NOTE | 2020-09-25 12:22 | NUR ---
SHARRON contacted Syeda at pt facility, [place], and reported that based on the past few notes regarding pt bxs, and that pt is being tested for possible UTI, d/c would be postponed for Monday09/28/20. SHARRON, also, contacted pt DPOA, Shandra, to report same. Both Syeda and Shandra appreciative of update and willing to talk again early next week following treatment team regarding d/c. Shandra added that it's possible the reason Marlene looks for her purse so much is that she always chewed gum and would look for it in her purse. Shandra stated that it was the small kind in the blister pack. Shandra questioned if trying gum might slow some of her agitation. SHARRON will f/u Monday on pt behaviors in treatment team.
--- NOTE | 2020-09-25 14:59 | NUR ---
NSG NOTE; LABILE PT HAS BEEN LABILE TODAY- AT TIMES PLEASANT AND COOPERATIVE, BUT MOSTLY SARCASTIC, DEMANDING AND IMPATIENT. SHE DOES NOT PARTICIPATE IN GROUPS. SHE DID TAKE HER MEDS AFTER MAKING SARCASTIC REMARKS ABOUT THEM.
[2020-09-25 15:51] VITALS: BP 131/72
[2020-09-25] MEDS: MIRTAZAPINE 15 MG TABLET PO SCH (20:37)
[2020-09-25] MEDS: traZODone 50 MG TABLET. PO PRN (20:37)
[2020-09-25] MEDS: MELATONIN 3 MG TABLET PO SCH (20:37)
--- NOTE | 2020-09-25 21:48 | PDOC ---
Exam Note: Hasmukh Note: Please also refer to the separate dictated note~for this date of service dictated separately.~Patient seen individually. Discussed the patient with Nursing staff reviewed the chart.~Reviewed interim history and current functioning. Reviewed vital signs,~Labs/ Radiology~and current medications noted below. Continue current treatment with the changes noted in the dictated addendum note Assessment: Vital Signs/I&O: Vital Signs Date Time Temp Pulse Resp B/P (MAP) Pulse Ox O2 Delivery O2 Flow Rate FiO2 09/25/20 15:51 97.2 93 18 131/72 (91) 96 09/24/20 15:44 Room Air I & O 09/24/20 09/24/20 09/25/20 15:00 23:00 07:00 Intake Total 460 ml 360 ml Balance 460 ml 360 ml Current Medications: Meds: Current Medications Medications (Trade) Dose Ordered Sig/Jose Luis Route PRN Reason Start Time Stop Time Status Last Admin Dose Admin Acetaminophen (Tylenol) 650 mg PRN Q6HRS PRN PO MILD PAIN / TEMP > 100.3'F 09/11/20 16:15 Multi-Ingredient Ointment (Analgesic [place]) 1 maritza PRN QID PRN TP MUSCLE PAIN 09/11/20 16:15 Al Hydroxide/Mg Hydroxide (Mylanta Plus Xs) 15 ml PRN AFTMEALHC PRN PO DYSPEPSIA 09/11/20 16:15 Magnesium Hydroxide (Milk Of Magnesia) 2,400 mg PRN QHS PRN PO CONSTIPATION 09/11/20 16:15 Acetaminophen (Tylenol) 1,000 mg TID PO 09/11/20 21:00 09/25/20 20:38 Amlodipine Besylate (Norvasc) 5 mg DAILY PO 09/12/20 09:00 09/25/20 08:24 Vitamin D (Vitamin D3) 50,000 unit WEEKLY PO 09/16/20 09:00 09/23/20 09:00 Lactobacillus Rhamnosus (Culturelle) 1 cap BID PO 09/11/20 21:00 09/25/20 20:38 Lidocaine (Lidoderm) 1 patch DAILY TP 09/12/20 09:00 09/20/20 05:10 DC 09/19/20 08:51 Metformin HCl (Glucophage) 500 mg DAILYWBKFT PO 09/12/20 08:00 09/25/20 08:24 Olanzapine (ZyPREXA) 2.5 mg PRN Q4HRS PRN PO ANXIETY 09/11/20 16:15 09/17/20 15:45 DC 09/17/20 13:32 Olanzapine (ZyPREXA) 5 mg QHS PO 09/11/20 21:00 09/15/20 17:07 DC 09/14/20 19:25 Vitamin D (Vitamin D3) 1,000 unit DAILY PO 09/12/20 09:00 09/25/20 08:24 Cefdinir (Omnicef) 300 mg BID PO 09/12/20 09:00 09/16/20 21:01 DC 09/16/20 20:05 Mirtazapine (Remeron) 7.5 mg QHS PO 09/12/20 21:00 09/16/20 17:59 DC 09/15/20 20:14 Trazodone HCl (Desyrel) 50 mg PRN QHS PRN PO INSOMNIA 09/12/20 18:15 09/25/20 20:37 Melatonin (Melatonin) 3 mg HS PO 09/13/20 21:00 09/25/20 20:37 Quetiapine Fumarate (SEROquel) 12.5 mg 0900,1300,1700 PO 09/16/20 17:15 09/23/20 17:30 DC 09/23/20 17:00 Mirtazapine (Remeron) 15 mg QHS PO 09/16/20 21:00 09/25/20 20:37 Sertraline HCl (Zoloft) 25 mg DAILY PO 09/17/20 09:00 09/20/20 08:59 DC 09/19/20 08:51 Sertraline HCl (Zoloft) 50 mg DAILY PO 09/20/20 09:00 09/22/20 10:01 DC 09/22/20 08:34 Olanzapine (ZyPREXA) 2.5 mg PRN Q2HR PRN PO ANXIETY 09/17/20 15:45 09/25/20 20:37 Hydroxyzine HCl (Atarax) 25 mg TID PRN PRN PO ITCHING 09/17/20 15:45 09/25/20 20:37 Lidocaine (Lidoderm) 1 patch PRN DAILY PRN TP TOPICAL PAIN 09/20/20 05:15 Miscellaneous (Lidoderm Patch Removal) 1 ea QHS MC 09/20/20 21:00 09/23/20 20:12 DC 09/21/20 21:00 Sertraline HCl (Zoloft) 75 mg DAILY PO 09/23/20 09:00 09/25/20 08:24 Quetiapine Fumarate (SEROquel) 12.5 mg 0900,1700 PO 09/24/20 09:00 09/25/20 03:14 DC 09/24/20 16:52 Quetiapine Fumarate (SEROquel) 25 mg 1300 PO 09/24/20 13:00 09/25/20 13:41 Quetiapine Fumarate (SEROquel) 25 mg 0900,1700 PO 09/25/20 09:00 09/25/20 17:20 Current Medications Medications (Trade) Dose Ordered Sig/Jose Luis Route PRN Reason Start Time Stop Time Status Last Admin Dose Admin Quetiapine Fumarate (SEROquel) 25 mg 0900,1700 PO 09/25/20 09:00 09/25/20 17:20 I have reviewed the current psychotropics carefully including drug interactions. Risk benefit ratio favors no change other than as noted in my dictated progress note. 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
--- NOTE | 2020-09-25 23:36 | NUR ---
Patient is located in the day room on assumption of care. She is disorganized, confused. Compliant with assessments and medications crushed in pudding. No delusions or hallucinations voiced so far this shift. Denies any pain or discomfort. She appears to be sleeping comfortably at present time. Will continue to monitor.
[2020-09-26 05:55] VITALS: BP 159/79
[2020-09-26] MEDS: LACTOBACILLUS RHAMNOSUS GG 1 CAPSULE. PO SCH ×2 (08:54→19:59)
[2020-09-26] MEDS: QUEtiapine 25 MG TABLET. PO SCH ×3 (08:54→15:25)
[2020-09-26] MEDS: ACETAMINOPHEN 500 MG TABLET PO SCH ×3 (08:54→20:00)
[2020-09-26] MEDS: SERTRALINE 25 MG TABLET. PO SCH (08:54)
[2020-09-26] MEDS: CHOLECALCIFEROL (VITAMIN D3) 1,000 UNIT TABLET PO SCH (08:55)
[2020-09-26] MEDS: metFORMIN 500 MG TABLET PO SCH (08:55)
[2020-09-26] MEDS: amLODIPine BESYLATE 5 MG TABLET PO SCH (08:55)
--- NOTE | 2020-09-26 10:35 | NUR ---
Pt remains disorganized and confused, A&O to self only. She is compliant with medications crushed and mixed in yogurt. It's been observed that she usually resists medications when mixed in applesauce or pudding (biting the spoon) but she is more compliant and cooperative when yogurt is used. She is able to make her needs known to staff. Absent of SI/HI/VH/AH/delusions thus far. She denies pain at this time and no PRN medications have been administered so far. Plan of care continues, will pass to next shift.
[2020-09-26 16:02] VITALS: BP 135/73
[2020-09-26 18:37] LABS: ALBUMIN 3.3 g/dL (3.4-5.0); ALBUMIN/GLOBULIN RATIO 0.8 (1.0-1.7); CALCIUM 8.7 mg/dL (8.5-10.1); CREATININE 1.2 mg/dL (0.6-1.0); GFR 42.7; POTASSIUM 4.4 mmol/L (3.5-5.1); TOTAL BILIRUBIN 0.2 mg/dL (0.2-1.0); TOTAL PROTEIN 7.5 g/dL (6.4-8.2)
[2020-09-26 19:39] LABS: BASO # 0.1 x10^3/uL (0.0-0.2); BASO % 1 % (0-3); EOS # 0.3 x10^3/uL (0.0-0.7); EOS % 3 % (0-3); HEMATOCRIT 26.8 % (36.0-47.0); HEMOGLOBIN 8.9 g/dL (12.0-15.5); LYMPH # 3.3 x10^3/uL (1.0-4.8); LYMPH % 32 % (24-48); MEAN CORPUSCULAR HEMOGLOBIN 31 pg (25-35); MEAN CORPUSCULAR HGB CONC 33 g/dL (31-37); MEAN CORPUSCULAR VOLUME 94 fL (79-100); MONO % 10 % (0-9); NEUT # 5.5 x10^3uL (1.8-7.7); NEUT % 55 % (31-73); PLATELET COUNT 484 x10^3/uL (140-400); RED BLOOD COUNT 2.85 x10^6/uL (3.50-5.40); RED CELL DISTRIBUTION WIDTH 13.8 % (11.5-14.5)
[2020-09-26] MEDS: traZODone 50 MG TABLET. PO PRN (19:59)
[2020-09-26] MEDS: MIRTAZAPINE 15 MG TABLET PO SCH (19:59)
[2020-09-26] MEDS: MELATONIN 3 MG TABLET PO SCH (20:00)
--- NOTE | 2020-09-26 23:46 | PN ---
DATE: 09/26/2020 SUBJECTIVE: The patient was seen today, met with the staff. Chart reviewed and also covering for Dr. Chua. The patient continues to be confused, resistant to care and also yelling. The patient has not had any threats towards the staff and no major behavior problems and not violent. OBSERVATION: VITAL SIGNS: Temperature 98.6, blood pressure 159/79, pulse 96, respirations 16, O2 sat 93%. GENERAL: Slept about 7-1/2 hours last night. Patient's current medications include Seroquel 25 mg twice a day and also 25 mg at 1:00 p.m. Zoloft 75 mg daily, mirtazapine 15 mg at night, melatonin 3 mg at night. Patient is also on p.r.n. olanzapine and trazodone. The patient is not having any major side effects. LABORATORY DATA: The patient's lab reviewed. ASSESSMENT: 1. 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 2. Anxiety disorder, unspecified. PLAN: Continue with the current treatment plan. Length of stay 7-[address]: Kavitha TID: [id number] MTDD
[2020-09-27 06:06] VITALS: BP 157/70
[2020-09-27] MEDS: ACETAMINOPHEN 500 MG TABLET PO SCH ×3 (08:48→20:05)
[2020-09-27] MEDS: SERTRALINE 25 MG TABLET. PO SCH (08:48)
[2020-09-27] MEDS: LACTOBACILLUS RHAMNOSUS GG 1 CAPSULE. PO SCH ×2 (08:48→20:05)
[2020-09-27] MEDS: CHOLECALCIFEROL (VITAMIN D3) 1,000 UNIT TABLET PO SCH (08:48)
[2020-09-27] MEDS: amLODIPine BESYLATE 5 MG TABLET PO SCH (08:48)
[2020-09-27] MEDS: QUEtiapine 25 MG TABLET. PO SCH ×3 (08:48→17:09)
[2020-09-27] MEDS: metFORMIN 500 MG TABLET PO SCH (08:49)
[2020-09-27 16:14] VITALS: BP 120/55
--- NOTE | 2020-09-27 17:30 | NUR ---
Patient calm, pleasantly confused throughout this shift. She refused to take all her morning medications which were crushed in yogurt; she was compliant with subsequent medications when provided them whole. Will continue to monitor and report to oncoming shift.
[2020-09-27] MEDS: MIRTAZAPINE 15 MG TABLET PO SCH (20:04)
[2020-09-27] MEDS: MELATONIN 3 MG TABLET PO SCH (20:05)
--- NOTE | 2020-09-27 22:51 | NUR ---
Pt remains confused and has been fairly cooperative tonight. She yelled during her shower then calmed down afterwards. She took meds whole with some instructions. Since going to bed she has been sleeping.
--- NOTE | 2020-09-28 05:42 | PN ---
DATE: 09/27/2020 SUBJECTIVE: The patient was seen today, met with the staff. Chart reviewed and also covering for Dr. Chua. The patient has been compliant with the medications. Still irritable, robretson, and disorganized. OBSERVATION: VITAL SIGNS: Temperature 98.6, blood pressure 151/70, pulse 92, respirations 18, O2 sat 95%. Slept about 5 hours last night. Her appetite improved. CURRENT MEDICATIONS: Include Seroquel 25 mg twice a day and 25 mg at 1 p.m., Zoloft 75 mg daily, mirtazapine 15 mg at night, melatonin 3 mg at night. She is also on olanzapine and trazodone as p.r.n. She is not exhibiting any side effects to medications. The patient also not exhibiting any major physical problems. LABORATORY DATA: Reviewed. ASSESSMENT: Major neurocognitive disorder, most likely Alzheimer's with delusions; depression; behavioral disturbances and anxiety disorder, unspecified. PLAN: Continue with the current treatment plan. Length of stay 7 to 10 days. The patient has planned to return to [place] once stable. NUBIA DR: Kavitha TID: [id number] MTDTorin
[2020-09-28 06:29] VITALS: BP 146/79
[2020-09-28] MEDS: QUEtiapine 25 MG TABLET. PO SCH ×2 (08:06→14:20)
[2020-09-28] MEDS: ACETAMINOPHEN 500 MG TABLET PO SCH ×4 (08:06→19:43)
[2020-09-28] MEDS: metFORMIN 500 MG TABLET PO SCH (08:07)
[2020-09-28] MEDS: LACTOBACILLUS RHAMNOSUS GG 1 CAPSULE. PO SCH ×2 (08:07→19:42)
[2020-09-28] MEDS: SERTRALINE 25 MG TABLET. PO SCH (08:07)
[2020-09-28] MEDS: amLODIPine BESYLATE 5 MG TABLET PO SCH (08:07)
[2020-09-28] MEDS: CHOLECALCIFEROL (VITAMIN D3) 1,000 UNIT TABLET PO SCH (08:07)
--- NOTE | 2020-09-28 12:41 | TX PLAN ---
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 Per Shandra, pt is generally pretty good at masking when she isn't feeling well. Her baseling, according to Shandra is that she will tell you she is fine and that she is generally complacent on how she is feeling. Shandra states that is is generally confused and this is normal. Shandra reports that pt has a significant history of ETOH and drug usage, that has most likely contributed to her overall health condition and confusion. Additional Admission Comments: Per intake record, pt stated she wants to kill herself, yelling, threatening to hit others, name calling, insomnia, refusing cares, talking to son who isn't there. Problems Active Problems: lack of sleep, hallucinations, confusion, agitation Inactive Problems: None noted at this time. Pt Strengths/Limitations Ability for [place]: Poor Cognitive Functioning/Ability: Poor Communication Skills/Ability: Fair Financial Resources: Fair Insight/Judgement: Poor Intellectual Ability: Fair Physical Health: Poor Social Skills: Fair Stability in Family: Fair Stability in School/Work: Fair Verbal Skills: Fair Discharge Criteria Discharge Criteria: Adequate arrangements @DC, Verbal commit med comply, Improved behavior, Improved mood/thought Other Discharge Comments: None at this time. Preliminary Discharge Plan Preliminary DC Plan: Current Living Arrange. Special Precautions Special Precautions: Agitation/Assault Fall Risk: Moderate Initial D/C Plan Pt plan is to return to [place]. Identified Discharge Needs: None noted at this time. Currently Utilized Resources Currently Utilized Resources/P: PCP-Dr. Jonny MACK/Wgj-vt-jab-[facility] Referrals Community Resources: None noted at this time. Identified Problems/Hx/Goals Objectives/Short-Term Goals Short Term Goals: Control abnormal behavior, Dec. Hallucination/Delus, Dec. Outbursts, Medication Stabilization, Monitor Med Effects Short Term Goals in Patient's: Control delusions/hallucinations, reduce outbursts, stabilize medications to help improve mood. Interventions/Frequency Staff Interventions/Frequency&: Psychiatry to assess pt three times per week for medication management. Nursing to asses behaviors, monitor medications, and complete 15 minute checks daily. Social work to see pt at least two times weekly to aid in return to placement. Activities to encourage pt to participate in group activities daily. 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 Education: Pt graduated in [place] and has the equivalence of a high school education. She did attend clearance coordinator school in [place] following high school. Community Follow-up PCP Community Provider/Family Inpu: Dtr-in-law/Christelle MACK, is aware of pt's hospitalization at [facility]. She provided social history and is available for further informatin if needed. 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 Pt discharge held as pt behaviors seem to fluctuate more than desired. Pt remains confused which is her baseline, however, she has had some increased agitation that had been somewhat concerning. Pt demonstrates some irritability about locating her purse, which when staff explain policy about belongings being locked up, pt is hard to reason with. Has mostly been compliant with taking medications, but showed some refusal over the weekend. Pt did take med whole this am. Pt's 1700 Seroquel dosage will be increased to 50mg. Pt will return to [place] once stable. JOE CAMACHO MD 10/03/20 1625: Interdisciplinary Tx Plan Admission Information Allergies: Coded Allergies: No Known Drug Allergies (Unverified , 09/09/20) GUICHO CHATMAN September 28, 2020 12:41 JOE CAMACHO MD October 03, 2020 16:25
--- NOTE | 2020-09-28 12:48 | NUR ---
WEELY NOTE: Pt has been eating between 75-100% of her meals and averaging 5.5 to 6 hours of sleep per night. Pt discharge held as pt behaviors seem to fluctuate more than desired. Pt remains confused which is her baseline, however, she has had some increased agitation that had been somewhat concerning. Pt demonstrates some irritability about locating her purse, which when staff explain policy about belongings being locked up, pt is hard to reason with. Has mostly been compliant with taking medications, but showed some refusal over the weekend. Pt did take med whole this am. Pt's 1700 Seroquel dosage will be increased to 50mg. Pt will return to [place] once stable.
--- NOTE | 2020-09-28 12:55 | NUR ---
WEEKLY ACTIVITY THERAPY NOTE Date of Admission: 09/11/20 Date of AT Assessment: 09/14 Precipitating behaviors that initiated intake and admission: stated she wants to kill herself, yelling, threatening to hit others, name calling, insomnia, refusing cares, talking to son who's not there Goal aimed: increase relaxation and time management skills Initial Goal: Pt will participate in at least three individual or group Activity Therapy sessions before discharge. Weekly progress towards goal: did not achieve, 0/3 Group participation level: none Weekly highlights: Behaviors observed: often sleeping in group, limited interest in group Plan: no change to goal Beneficial adaptations:
[2020-09-28 16:03] VITALS: BP 146/69
[2020-09-28] MEDS: QUEtiapine 50 MG TABLET. PO SCH (19:42)
[2020-09-28] MEDS: MIRTAZAPINE 15 MG TABLET PO SCH (19:43)
[2020-09-28] MEDS: MELATONIN 3 MG TABLET PO SCH (19:43)
--- NOTE | 2020-09-28 23:15 | PN ---
DATE: 09/28/2020 SUBJECTIVE: The patient was seen today, met with the staff and also participated in the treatment, review conference. Also, covering for Dr. Chua. The patient's behavior improved. She slept about 6 hours last night. She ate almost 70-100% of her meals. She still has some hearing problems. The patient's discharge was planned today, but asked to be postponed because her son not able to get everything ready for her discharge. The patient's overall behavior has improved. Still get anxious and restless. The patient also exhibiting disorganized thinking. OBSERVATION VITAL SIGNS: Temperature 97.8, blood pressure 146/79, pulse 94, respirations 20 and O2 sat 94%. Slept about 6 hours last night. CURRENT MEDICATIONS: Include Seroquel 25 mg twice daily and 25 mg at 1 p.m., Zoloft 75 mg daily, mirtazapine 15 mg at night, melatonin 3 mg at night. The patient is not exhibiting any side effects to medications. The patient is also on olanzapine and trazodone as p.r.n. LABORATORY DATA: The patient's lab reviewed. 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 PLAN: To continue with the treatment. The patient's Seroquel was increased to 25 mg twice a day and 50 mg at night. Length of stay, 5 days. Plan is to continue with the current treatment plan. MARCIA/DONA DR: PRABHU/jeri TID: [id number] MTDD
[2020-09-29 06:11] VITALS: BP 171/90
[2020-09-29] MEDS: LACTOBACILLUS RHAMNOSUS GG 1 CAPSULE. PO SCH ×2 (08:32→21:19)
[2020-09-29] MEDS: ACETAMINOPHEN 500 MG TABLET PO SCH ×3 (08:32→21:19)
[2020-09-29] MEDS: CHOLECALCIFEROL (VITAMIN D3) 1,000 UNIT TABLET PO SCH (08:32)
[2020-09-29] MEDS: SERTRALINE 25 MG TABLET. PO SCH (08:32)
[2020-09-29] MEDS: amLODIPine BESYLATE 5 MG TABLET PO SCH (08:32)
[2020-09-29] MEDS: QUEtiapine 25 MG TABLET. PO SCH ×2 (08:33→14:20)
[2020-09-29] MEDS: metFORMIN 500 MG TABLET PO SCH (08:33)
[2020-09-29 16:24] VITALS: BP 113/64
[2020-09-29] MEDS: traZODone 50 MG TABLET. PO PRN (21:18)
[2020-09-29] MEDS: MELATONIN 3 MG TABLET PO SCH (21:19)
[2020-09-29] MEDS: MIRTAZAPINE 15 MG TABLET PO SCH (21:19)
[2020-09-29] MEDS: QUEtiapine 50 MG TABLET. PO SCH (21:19)
--- NOTE | 2020-09-30 00:14 | NUR ---
Nursing Note The patient was disorganized and resistive with cares. The patient continues to yell whenever staff must touch her for any care. The patient was compliant with HS medication and took them whole. The patient was located in her bed for interactions with this nurse. The patient is currently sleeping in her room. The patient received PRN Trazodone @HS per PRN order.
--- NOTE | 2020-09-30 03:15 | PN ---
DATE: 09/29/2020 SUBJECTIVE: The patient was seen today, met with the staff. Chart reviewed. The patient has problems with her hearing. The patient is apparently not presenting with any major behavior problems. Still anxious and restless and also disorganized with her thinking. PHYSICAL EXAMINATION: VITAL SIGNS: Temperature 97.9, blood pressure 118/64, pulse 91, respirations 16, O2 sat 97%. MEDICATIONS: Include Seroquel 25 mg twice a day and 50 mg at night, mirtazapine 15 mg at night, Zoloft 75 mg daily and melatonin 3 mg at night. The patient is not having any side effects to medications. LABORATORY DATA: The patient's labs reviewed. ASSESSMENT: Major neurocognitive disorder, most likely Alzheimer's with delusion, depression and behavioral disturbances. PLAN: To continue with the treatment. LENGTH OF STAY: Five days. The patient WILL RETURN TO [place] PRABHU/LUPE/DONA DR: PRABHU/jeri TID: [id number] TIBURCIO
[2020-09-30 06:02] VITALS: BP 175/74
[2020-09-30] MEDS: amLODIPine BESYLATE 5 MG TABLET PO SCH (08:52)
[2020-09-30] MEDS: CHOLECALCIFEROL (VITAMIN D3) 1,000 UNIT TABLET PO SCH (08:52)
[2020-09-30] MEDS: ACETAMINOPHEN 500 MG TABLET PO SCH ×3 (08:52→20:39)
[2020-09-30] MEDS: metFORMIN 500 MG TABLET PO SCH (08:52)
[2020-09-30] MEDS: LACTOBACILLUS RHAMNOSUS GG 1 CAPSULE. PO SCH ×2 (08:52→20:39)
[2020-09-30] MEDS: CHOLECALCIFEROL (VITAMIN D3) 50,000 UNIT CAPSULE PO SCH (08:52)
[2020-09-30] MEDS: QUEtiapine 25 MG TABLET. PO SCH ×2 (08:52→13:40)
[2020-09-30] MEDS: SERTRALINE 25 MG TABLET. PO SCH (08:53)
--- NOTE | 2020-09-30 14:40 | NUR ---
PATIENT LOCATED IN A DINING ROOM THIS AM UPON ASSESSMENT, IRRITABLE WHEN APPROACHED FOR ASSESSMENT, TOLD THIS NURSE TO " GET AWAY FROM ME, LEAVE ME ALONE" , RESISTIVE WITH CARE, TOOK HER MEDS WHOLE WITH ENCOURAGEMENT. PATIENT WAS OBSERVED LATER IN A DAY ROOM, ASKED FOR ASSISTANCE TO BE TRANSFERRED TO THE SOFA, WHEN APPROACHED REFUSED TO HAVE ANY HELP, DID NOT WANT TO BE TOUCHED, PATIENT WAS ABLE TO SELF TRANSFER WITH STAND BY ASSIST. PATIENT IS CURRENTLY SITTING IN A DAY ROOM CALM.
--- NOTE | 2020-09-30 16:11 | NUR ---
SHARRON spoke with both DPOA, Shandra, and pt facility, [facility], to provide update. SW reported that the night time dose of Seroquel had just been increased to 50mg, therefore, we would follow pt progress and look toward d/c early to mid next week. Shandra and [facility] both appreciative of call. SHARRON followed up with faxing updates including nursing notes, lab reports, and med list to facility with a successful transmittal.
[2020-09-30 16:29] VITALS: BP 131/75
[2020-09-30] MEDS: OLANZapine 2.5 MG TABLET PO PRN ×2 (16:38→18:38)
[2020-09-30] MEDS: QUEtiapine 50 MG TABLET. PO SCH (20:39)
[2020-09-30] MEDS: MIRTAZAPINE 15 MG TABLET PO SCH (20:39)
[2020-09-30] MEDS: MELATONIN 3 MG TABLET PO SCH (20:39)
[2020-09-30] MEDS: traZODone 50 MG TABLET. PO PRN (20:45)
--- NOTE | 2020-09-30 23:15 | NUR ---
Nursing Note The patient was was located in the hallway for her assessment and medication pass. The patient was disorganized but pleasant. The patient talked about [place] and about her son during interactions with this nurse. The patient took her medication whole. The patient received PRN Trazodone@HS per PRN order R/T increased restlessness @HS. The patient is currently sleeping in her room.
--- NOTE | 2020-10-01 01:51 | PN ---
DATE: 09/30/2020 SUBJECTIVE: The patient was seen today, met with the staff, chart reviewed and also covering for Dr. Chua. The patient continues to show increased anxiety, restlessness, and also disorganized thinking. OBSERVATION: VITAL SIGNS: Blood pressure 175/74, pulse 107, respirations 20, O2 sat 96% and temperature 97.5. GENERAL: The patient slept about 6 hours last night. The patient's appetite is fair. CURRENT MEDICATIONS: Include Seroquel 50 mg at night and 25 mg twice a day, Zoloft 75 mg daily, mirtazapine 50 mg at night, melatonin 3 mg at night, trazodone 50 mg at night p.r.n. for sleep. She is also on olanzapine 2.5 mg q. 2 hours p.r.n. for anxiety and agitation. The patient is not having any side effects to medications. 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 PLAN: Continue with the current treatment. LENGTH OF STAY: 3 to 5 days. The patient has planned to return to [place]. NELY DR: Kavitha TID: [id number]
[2020-10-01 05:25] VITALS: BP 174/82
[2020-10-01] MEDS: ACETAMINOPHEN 500 MG TABLET PO SCH ×3 (08:23→21:13)
[2020-10-01] MEDS: metFORMIN 500 MG TABLET PO SCH (08:23)
[2020-10-01] MEDS: LACTOBACILLUS RHAMNOSUS GG 1 CAPSULE. PO SCH ×2 (08:23→21:13)
[2020-10-01] MEDS: SERTRALINE 25 MG TABLET. PO SCH (08:23)
[2020-10-01] MEDS: CHOLECALCIFEROL (VITAMIN D3) 1,000 UNIT TABLET PO SCH (08:23)
[2020-10-01] MEDS: QUEtiapine 25 MG TABLET. PO SCH ×2 (08:23→14:50)
[2020-10-01] MEDS: amLODIPine BESYLATE 5 MG TABLET PO SCH (08:24)
[2020-10-01] MEDS: OLANZapine 2.5 MG TABLET PO PRN ×2 (10:46→16:04)
--- NOTE | 2020-10-01 10:49 | NUR ---
Nursing note: Pt increasingly agitated and yelling out, screaming, demanding to see her son. She is unable to be redirected. PRN administered. Will notify primary nurse
[2020-10-01] MEDS: hydrOXYzine HCL 25 MG TABLET PO PRN ×2 (10:54→16:04)
--- NOTE | 2020-10-01 13:27 | NUR ---
Pt remains A&O to self only,appropriate, confused, and disorganized. She is compliant with medications crushed and mixed in yogurt. She is able to make her needs known to staff. Plan of care continues, will pass to next shift.
--- NOTE | 2020-10-01 15:30 | NUR ---
At approximately 1145, SHARRON received a vm from pt DPGEOVANNA Shandra, who reported that she spoke with pt earlier as pt had been struggling and nursing staff called Shandra to see if pt would calm down after talking to her. In the vm, Shandra stated that pt seemed very manic on the phone and it was quite sad hearing her like that. Around 1255, SHARRON called Shandra back after visiting with staff regarding pt behaviors. SW reported in the returned vm that pt had been around a lot of stimuli that could have contributed to some of her agitation. SHARRON also reported that pt was going to have another UA to test for UTI. SHARRON addressed that nursing staff was going to visit with the doctor to see if there were any further medication adjustments that could be done as it seems that when pt has Zyprexa and Hydroxyzine given together, she calms down. Around 1545, SHARRON called Shandra back to see if she had received the earlier vm. Shandra stated she did. Shandra stated that she was just interested to see if staff thought that pt would have a new baseline following dc as she figured she would need to prepare her /pt son. Shandra stated that pt son really doesn't know how to handle difficult family matters and that's why she tends to those issues. Shandra did state that by the end of the conversation that she had with pt earlier this am, that pt seemed to be better adjusted and had calmed down quite a bit. SHARRON offered for a pt visit, but Shandra is concerned that it would cause further agitation when the visit would be over because she would think that she was to leave with them. SHARRON and Shandra agreed to talk again early next week to follow up on UA results and if there have been any medication changes. Shandra appreciative of call.
--- NOTE | 2020-10-01 16:05 | NUR ---
Pt becoming increasingly agitated and hyperfixated on her purse and trying to locate it. PRN Zyprexa 2.5 PO and PRN Hydroxyzine 25 mg PO administered.
[2020-10-01 16:10] VITALS: BP 143/73
[2020-10-01] MEDS: MIRTAZAPINE 15 MG TABLET PO SCH (21:13)
[2020-10-01] MEDS: MELATONIN 3 MG TABLET PO SCH (21:13)
[2020-10-01] MEDS: QUEtiapine 50 MG TABLET. PO SCH (21:13)
--- NOTE | 2020-10-02 01:24 | NUR ---
Nursing Note The patient was located in her room for her assessment and medication. The patient was able to take her medication whole. The patient was disorganized during her assessment but was pleasant. The patient was alert to her name only. The patient is currently sleeping in her room.
--- NOTE | 2020-10-02 04:17 | PN ---
DATE: 10/01/2020 SUBJECTIVE: The patient was seen today, met with the staff, chart reviewed. The patient's behavior remains the same. Increased anxiety, restlessness and also disorganized thinking. OBSERVATION: Temperature 97.2, blood pressure 174/82, pulse 98, respirations 20, O2 sat 94%. Slept about 7 hours last night. The patient's appetite is fair. CURRENT MEDICATIONS: Include Seroquel 50 mg at night and 25 mg twice a day, Zoloft 75 mg daily, mirtazapine 15 mg at night, melatonin 3 mg at night, trazodone 50 mg at night p.r.n. for sleep. She is also on olanzapine 2.5 mg q. 2 hours p.r.n. for anxiety and agitation. The patient is not having any side effects to medications. 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 PLAN: To continue with the current treatment. LENGTH OF STAY: 3-[address]: Kavitha TID: [id number]
[2020-10-02 05:34] VITALS: BP 160/83
[2020-10-02] MEDS: LACTOBACILLUS RHAMNOSUS GG 1 CAPSULE. PO SCH ×2 (08:31→20:19)
[2020-10-02] MEDS: QUEtiapine 25 MG TABLET. PO SCH ×2 (08:31→14:19)
[2020-10-02] MEDS: SERTRALINE 25 MG TABLET. PO SCH (08:31)
[2020-10-02] MEDS: ACETAMINOPHEN 500 MG TABLET PO SCH ×3 (08:32→20:19)
[2020-10-02] MEDS: metFORMIN 500 MG TABLET PO SCH (08:32)
[2020-10-02] MEDS: amLODIPine BESYLATE 5 MG TABLET PO SCH (08:32)
[2020-10-02] MEDS: CHOLECALCIFEROL (VITAMIN D3) 1,000 UNIT TABLET PO SCH (08:32)
--- NOTE | 2020-10-02 09:58 | NUR ---
Pt is quiet and pleasant this morning; A&O to self only,appropriate, confused, and disorganized. She is compliant with medications crushed and mixed in yogurt. She is able to make her needs known to staff. Plan of care continues, will pass to next shift.
[2020-10-02 15:47] VITALS: BP 130/72
--- NOTE | 2020-10-02 18:10 | NUR ---
Pt increasing in anxiety and obsessive thoughts about finding her purse. She has elevated into screaming at staff. Redirection and distraction not helpful. PRN Zyprexa 2.5 mg SL administered. Addendum: 10/02/20 at 1831 by MAYURI ARGUETA RN Reassessment of pt's anxiety after PRN Zyprexa administration shows that pt's anxiety has actually increased. She is now every delusional; screaming at nurses to find her son, sobbing, and violently pulling on locked doors. Redirection and distraction not successful. PRN Hydroxyzine 25 mg SL administered.
[2020-10-02] MEDS: OLANZapine 2.5 MG TABLET PO PRN (18:11)
[2020-10-02] MEDS: hydrOXYzine HCL 25 MG TABLET PO PRN (18:29)
[2020-10-02] MEDS: MELATONIN 3 MG TABLET PO SCH (20:19)
[2020-10-02] MEDS: MIRTAZAPINE 15 MG TABLET PO SCH (20:19)
[2020-10-02] MEDS: QUEtiapine 50 MG TABLET. PO SCH (20:19)
[2020-10-02] MEDS: traZODone 50 MG TABLET. PO PRN (20:19)
--- NOTE | 2020-10-02 23:54 | NUR ---
Pt wandering unit this evening. Pt highly anxious and delusional. Pt looking for a little boy and is yelling at staff to help her find the boy. Pt resistive with medications but eventually compliant with crushed medications. Pt continued to yell out, was anxious and delusional until going to bed.
--- NOTE | 2020-10-03 05:26 | PN ---
DATE: 10/02/2020 SUBJECTIVE: The patient was seen today, met with the staff, chart reviewed. Also, covering for Dr. Chua. The patient's behavior remains the same, disorganized thinking, but she is medication compliant and the patient also received p.r.n. medication for increased anxiety. The patient currently on wheelchair. OBSERVATION: VITAL SIGNS: Temperature 97.7, pulse 102, respirations 24, O2 sat 99%. Slept about 7 hours last night. CURRENT MEDICATIONS: Include Seroquel 50 mg at night and 25 mg twice a day, Zoloft 75 mg daily, mirtazapine 15 mg at night, melatonin 3 mg at night. The patient is also on trazodone 50 mg at night p.r.n. for sleep, olanzapine 2.5 mg q.2h. p.r.n. The patient is not showing any side effects to medications. 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 PLAN: To continue with the current treatment. LENGTH OF STAY: Three to five days. TATO/VENESSA DR: Kavitha TID: [id number]
[2020-10-03 05:54] VITALS: BP 152/77
[2020-10-03 07:17] LABS: BACTERIA,URINE 0 /HPF (0-FEW); BILIRUBIN,URINE NEG (NEG); CLARITY,URINE CLEAR; COLOR,URINE YELLOW; GLUCOSE,URINE NEG (NEG); NITRITE,URINE NEG (NEG); RBC,URINE OCC /HPF (0-2); SQUAMOUS EPITHELIAL CELL,UR MOD /LPF; UROBILINOGEN,URINE 0.2 mg/dL (0.2 mg/dL); WBC,URINE OCC /HPF (0-4)
[2020-10-03 07:45] LABS: BASO % 1 % (0-3); EOS # 0.5 x10^3/uL (0.0-0.7); EOS % 5 % (0-3); HEMATOCRIT 26.5 % (36.0-47.0); HEMOGLOBIN 8.9 g/dL (12.0-15.5); LYMPH # 1.8 x10^3/uL (1.0-4.8); LYMPH % 20 % (24-48); MEAN CORPUSCULAR HEMOGLOBIN 31 pg (25-35); MEAN CORPUSCULAR HGB CONC 34 g/dL (31-37); MEAN CORPUSCULAR VOLUME 92 fL (79-100); MONO # 0.9 x10^3/uL (0.0-1.1); MONO % 10 % (0-9); NEUT # 5.6 x10^3uL (1.8-7.7); NEUT % 64 % (31-73); PLATELET COUNT 448 x10^3/uL (140-400); RED BLOOD COUNT 2.88 x10^6/uL (3.50-5.40); RED CELL DISTRIBUTION WIDTH 13.6 % (11.5-14.5); WHITE BLOOD COUNT 8.9 x10^3/uL (4.0-11.0)
[2020-10-03 07:59] LABS: ALBUMIN 3.2 g/dL (3.4-5.0); ALBUMIN/GLOBULIN RATIO 0.8 (1.0-1.7); CALCIUM 8.9 mg/dL (8.5-10.1); CREATININE 0.8 mg/dL (0.6-1.0); GFR 68.2; POTASSIUM 3.6 mmol/L (3.5-5.1); TOTAL BILIRUBIN 0.3 mg/dL (0.2-1.0); TOTAL PROTEIN 7.4 g/dL (6.4-8.2)
[2020-10-03] MEDS: ACETAMINOPHEN 500 MG TABLET PO SCH ×3 (08:15→20:07)
[2020-10-03] MEDS: SERTRALINE 25 MG TABLET. PO SCH (08:15)
[2020-10-03] MEDS: CHOLECALCIFEROL (VITAMIN D3) 1,000 UNIT TABLET PO SCH (08:15)
[2020-10-03] MEDS: amLODIPine BESYLATE 5 MG TABLET PO SCH (08:15)
[2020-10-03] MEDS: LACTOBACILLUS RHAMNOSUS GG 1 CAPSULE. PO SCH ×2 (08:16→20:06)
[2020-10-03] MEDS: QUEtiapine 25 MG TABLET. PO SCH ×2 (08:16→17:02)
[2020-10-03] MEDS: metFORMIN 500 MG TABLET PO SCH (08:16)
--- NOTE | 2020-10-03 10:06 | NUR ---
Pt cooperative and med compliant this morning. She takes medications crushed and mixed with yogurt. She is able to make her needs known and has no complaints at this time. She is absent of SI/HI/VH/AH/delusions. No PRN medications have been administered thus far. 10/03/20 UA results negative for UTI. Pt is placed on rounds list for Dr Vera this morning for platelet count of 448 and low grade temp of 99.6 F oral. Plan of care continues, will pass to next shift.
[2020-10-03] MEDS: hydrOXYzine HCL 25 MG TABLET PO PRN ×3 (11:50→21:38)
[2020-10-03] MEDS: OLANZapine 2.5 MG TABLET PO PRN ×3 (11:51→21:38)
--- NOTE | 2020-10-03 11:51 | NUR ---
Pt increasing in agitation and anxiety. She keeps screaming over and over that she needs to leave and go home. Verbal redirection and distraction not successful. Pt was escorted to the quiet hallway in an effort to allow her to self-regulate her emotions in a lower-stimuli environment. Pt was unable to decrease in agitation and began to bang on the windows of the nurse station and scream hysterically. PRN Zyprexa 2.5 mg and PRN Hydroxyzine 25 mg administered SL with 4:1 staff assistance.
[2020-10-03 15:48] VITALS: BP 152/83
--- NOTE | 2020-10-03 18:11 | NUR ---
Pt showing high anxiety; screaming that she needs to go home because her young son is home alone. Time in quiet [place] for self-regulation of emotions with low stimuli not effective. Distraction and redirection not effective. Pt continues to scream hysterically. PRN Zyprexa 2.5 mg and PRN Hydroxyzine 25 mg administered SL.
[2020-10-03] MEDS: MELATONIN 3 MG TABLET PO SCH (20:06)
[2020-10-03] MEDS: MIRTAZAPINE 15 MG TABLET PO SCH (20:06)
[2020-10-03] MEDS: QUEtiapine 50 MG TABLET. PO SCH (20:06)
[2020-10-03] MEDS: traZODone 50 MG TABLET. PO PRN (20:07)
--- NOTE | 2020-10-03 23:04 | NUR ---
Pt extremely anxious and delusional this evening. Pt looking for the "little boy" and her shoes. Redirection unsuccessful. Pt grabbing at staff and asking every staff member where the "little boy" was. Pt compliant with crushed medications. Pt taken to bed but continued to be extremely restless, anxious and delusional. PRN Zyprexa and Atarax administered. Pt currently sleeping.
--- NOTE | 2020-10-03 23:59 | PN ---
DATE: 10/03/2020 SUBJECTIVE: The patient was seen today met with the staff. Chart reviewed and also covering for Dr. Chua. Staff reports episodes of confusion, agitation and this morning, she was demanding to leave the hospital. The patient currently on wheelchair, very little interaction. PHYSICAL EXAMINATION: VITAL SIGNS: Temperature 99.6, blood pressure 152/79, pulse 101, respirations 22, O2 sat 93%. Slept about 5 hours last night. The patient's appetite is fair. LABORATORY DATA: The patient's lab reviewed and also medications reviewed. Currently, she is not having any side effects to the medications. ASSESSMENT: Major neurocognitive disorder, most likely Alzheimer's with delusion, depression, behavioral disturbances. PLAN: To continue with current treatment. LENGTH OF STAY: Three to five days. PRABHU DR: PRABHU/jeri TID: [id number]
[2020-10-04 05:59] VITALS: BP 158/84
[2020-10-04] MEDS: amLODIPine BESYLATE 5 MG TABLET PO SCH (08:33)
[2020-10-04] MEDS: SERTRALINE 25 MG TABLET. PO SCH (08:33)
[2020-10-04] MEDS: OLANZapine 2.5 MG TABLET PO PRN ×2 (08:33→11:25)
[2020-10-04] MEDS: LACTOBACILLUS RHAMNOSUS GG 1 CAPSULE. PO SCH ×2 (08:33→19:38)
[2020-10-04] MEDS: QUEtiapine 25 MG TABLET. PO SCH ×2 (08:33→13:54)
[2020-10-04] MEDS: metFORMIN 500 MG TABLET PO SCH (08:33)
[2020-10-04] MEDS: ACETAMINOPHEN 500 MG TABLET PO SCH ×3 (08:33→19:38)
[2020-10-04] MEDS: CHOLECALCIFEROL (VITAMIN D3) 1,000 UNIT TABLET PO SCH (08:33)
[2020-10-04 15:56] VITALS: BP 143/76
[2020-10-04] MEDS: hydrOXYzine HCL 25 MG TABLET PO PRN ×2 (16:07→19:38)
[2020-10-04] MEDS: MELATONIN 3 MG TABLET PO SCH (19:38)
[2020-10-04] MEDS: QUEtiapine 50 MG TABLET. PO SCH (19:38)
[2020-10-04] MEDS: MIRTAZAPINE 15 MG TABLET PO SCH (19:38)
[2020-10-04] MEDS: traZODone 50 MG TABLET. PO PRN (19:38)
--- NOTE | 2020-10-04 23:15 | NUR ---
Pt anxious and delusional this evening. Pt wandering unit yelling, looking for the "little boy." Attempts at redirection unsuccessful. PRN Atarax and Trazodone administered with HS medications. Pt continued to be restless and delusional until going to sleep.
--- NOTE | 2020-10-04 23:30 | PN ---
DATE: 10/04/2020 SUBJECTIVE: The patient was seen today, met with the staff, chart reviewed. Also covering for Dr. Chua. The patient continues to be delusional, paranoid, agitated easily. Also, disorganized with her thinking. OBJECTIVE: VITAL SIGNS: Include temperature 98.4, blood pressure 158/84, pulse 104, respirations 20, O2 sat 93%. Slept about 6 hours last night. MEDICATIONS: Patient's medications reviewed. LABORATORY DATA: Reviewed. 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 PLAN: To continue with the treatment. LENGTH OF STAY: Three to five days. PRABHU/MATHIEU/SOREN DR: Kavitha TID: [id number]
[2020-10-05 05:53] VITALS: BP 144/90
[2020-10-05] MEDS: metFORMIN 500 MG TABLET PO SCH (09:35)
[2020-10-05] MEDS: CHOLECALCIFEROL (VITAMIN D3) 1,000 UNIT TABLET PO SCH (09:36)
[2020-10-05] MEDS: LACTOBACILLUS RHAMNOSUS GG 1 CAPSULE. PO SCH ×2 (09:36→20:08)
[2020-10-05] MEDS: SERTRALINE 25 MG TABLET. PO SCH (09:36)
[2020-10-05] MEDS: QUEtiapine 25 MG TABLET. PO SCH ×2 (09:36→14:03)
[2020-10-05] MEDS: ACETAMINOPHEN 500 MG TABLET PO SCH ×3 (09:36→20:09)
[2020-10-05] MEDS: amLODIPine BESYLATE 5 MG TABLET PO SCH (09:37)
[2020-10-05] MEDS: OLANZapine 2.5 MG TABLET PO PRN (11:25)
[2020-10-05] MEDS: hydrOXYzine HCL 25 MG TABLET PO PRN (11:25)
--- NOTE | 2020-10-05 13:03 | NUR ---
WEEKLY ACTIVITY THERAPY NOTE Date of Admission: 09/11/20 Date of AT Assessment: 09/14 Precipitating behaviors that initiated intake and admission: stated she wants to kill herself, yelling, threatening to hit others, name calling, insomnia, refusing cares, talking to son who's not there Goal aimed: increase relaxation and time management skills Initial Goal: Pt will participate in at least three individual or group Activity Therapy sessions before discharge. Weekly progress towards goal: on track (10/02-chocolate chip day trivia and cookies) Group participation level: 1 min Weekly highlights: accepted a chocolate chip cookie Monday afternoon Behaviors observed: sleeps often during groups Plan: no change to goal Beneficial adaptations:
--- NOTE | 2020-10-05 13:30 | TX PLAN ---
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 Per Shandra, pt is generally pretty good at masking when she isn't feeling well. Her baseling, according to Shandra is that she will tell you she is fine and that she is generally complacent on how she is feeling. Shandra states that is is generally confused and this is normal. Shandra reports that pt has a significant history of ETOH and drug usage, that has most likely contributed to her overall health condition and confusion. Additional Admission Comments: Per intake record, pt stated she wants to kill herself, yelling, threatening to hit others, name calling, insomnia, refusing cares, talking to son who isn't there. Problems Active Problems: lack of sleep, hallucinations, confusion, agitation Inactive Problems: None noted at this time. Pt Strengths/Limitations Ability for [place]: Poor Cognitive Functioning/Ability: Poor Communication Skills/Ability: Fair Financial Resources: Fair Insight/Judgement: Poor Intellectual Ability: Fair Physical Health: Poor Social Skills: Fair Stability in Family: Fair Stability in School/Work: Fair Verbal Skills: Fair Discharge Criteria Discharge Criteria: Adequate arrangements @DC, Verbal commit med comply, I mproved behavior, Improved mood/thought Other Discharge Comments: None at this time. Preliminary Discharge Plan Preliminary DC Plan: Current Living Arrange. Special Precautions Special Precautions: Agitation/Assault Fall Risk: Moderate Initial D/C Plan Pt plan is to return to [place]. Identified Discharge Needs: None noted at this time. Currently Utilized Resources Currently Utilized Resources/P: PCP-Dr. Jonny MACK/Nxf-gk-buv-[facility] Referrals Community Resources: None noted at this time. Identified Problems/Hx/Goals Objectives/Short-Term Goals Short Term Goals: Control abnormal behavior, Dec. Hallucination/Delus, Dec. Outbursts, Medication Stabilization, Monitor Med Effects Short Term Goals in Patient's: Control delusions/hallucinations, reduce outbursts, stabilize medications to help improve mood. Interventions/Frequency Staff Interventions/Frequency&: Psychiatry to assess pt three times per week for medication management. Nursing to asses behaviors, monitor medications, and complete 15 minute checks daily. Social work to see pt at least two times weekly to aid in return to placement. Activities to encourage pt to participate in group activities daily. 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 She was able to interview several [place] celebrities. Education: Pt graduated in [place] and has the equivalence of a high school education. She did attend national secretary school in [place] following high school. Community Follow-up PCP Community Provider/Family Inpu: Dtr-in-law/FREDERICK Christelle, is aware of pt's hospitalization at [facility]. She provided social history and is available for further informatin if needed. Treatment Plan Explained Patient/Bit Sharpener Operator had this treatment plan explained to him/her as indicated by the signature below and has been given the opportunity to ask questions and make suggestions: Date: Patient/Bit Sharpener Operator Signature: Status Update Update Pt continues to eat an average of 75% of her meals and get 6 hours of sleep per night. Pt still shows some irritability and delusional thinking about a little boy which is most likely her son that she looks for. She is very confused about the year and thinks that her son is still a little boy. Pt will call people idiots if redirection is provided. She will fixate on this, as well as, seeking help in looking for her vehicle. Redirection not helpful and sometime pt will express threatening comments. Pt has attended groups and is mostly quiet in group setting not really participating d/t limited cognitive ability. Pt on average receives daily PRNs of Zyprexa, Hydroxyzine, or Trazodone. Pt noon dose of Seroquel will be increased to 50mg with the am dose remaining at 25mg, and the evening dose remaining at 50mg. Also, pt will start on 250mg of Depokote Sprinkles for mood. Pt will d/c to [facility] once stable. GUICHO CHATMAN October 05, 2020 13:30
--- NOTE | 2020-10-05 14:04 | NUR ---
WEEKLY NOTE: Pt continues to eat an average of 75% of her meals and get 6 hours of sleep per night. Pt still shows some irritability and delusional thinking about a little boy which is most likely her son that she looks for. She is very confused about the year and thinks that her son is still a little boy. Pt will call people idiots if redirection is provided. She will fixate on this, as well as, seeking help in looking for her vehicle. Redirection not helpful and sometime pt will express threatening comments. Pt has attended groups and is mostly quiet in group setting not really participating d/t limited cognitive ability. Pt on average receives daily PRNs of Zyprexa, Hydroxyzine, or Trazodone. Pt noon dose of Seroquel will be increased to 50mg with the am dose remaining at 25mg, and the evening dose remaining at 50mg. Also, pt will start on 250mg of Depokote Sprinkles for mood. Pt will d/c to [facility] once stable. SHARRON contacted pt Shnadra MACK, and Carmelita, from facility, to provide updates. SHARRON will send updates to facility later in week. Shandra and Carmelita both appreciative of call.
[2020-10-05 15:49] VITALS: BP 125/62
--- NOTE | 2020-10-05 16:53 | NUR ---
Nursing note: Pt in day room at time of AM med pass and assessment. She was compliant with meds crushed in pudding and cooperative with assessment. She denied having any pain. Pt later became verbally aggressive towards staff and was yelling out, causing disruption in the day room. PRN's administered at that time with good effect. Pt has occasionally questioned where the "little boy" is, but is able to be redirected. She is currently sitting in the day room. Will continue to monitor.
[2020-10-05] MEDS: MELATONIN 3 MG TABLET PO SCH (20:08)
[2020-10-05] MEDS: QUEtiapine 50 MG TABLET. PO SCH (20:08)
[2020-10-05] MEDS: DIVALPROEX 125 MG CAP.SPRINK PO SCH (20:09)
[2020-10-05] MEDS: MIRTAZAPINE 15 MG TABLET PO SCH (20:09)
--- NOTE | 2020-10-05 23:11 | NUR ---
Pt calmer this evening and did not yell as much as previous evenings. Compliant with crushed medications. Pt wandered around unit in wheelchair. No mention of any delusions this evening.
[2020-10-06 06:01] VITALS: BP 158/68
[2020-10-06] MEDS: metFORMIN 500 MG TABLET PO SCH (08:15)
[2020-10-06] MEDS: QUEtiapine 25 MG TABLET. PO SCH (08:15)
[2020-10-06] MEDS: DIVALPROEX 125 MG CAP.SPRINK PO SCH ×2 (08:16→20:41)
[2020-10-06] MEDS: SERTRALINE 25 MG TABLET. PO SCH (08:16)
[2020-10-06] MEDS: LACTOBACILLUS RHAMNOSUS GG 1 CAPSULE. PO SCH ×2 (08:17→20:41)
[2020-10-06] MEDS: ACETAMINOPHEN 500 MG TABLET PO SCH ×3 (08:17→20:40)
[2020-10-06] MEDS: amLODIPine BESYLATE 5 MG TABLET PO SCH (08:17)
[2020-10-06] MEDS: CHOLECALCIFEROL (VITAMIN D3) 1,000 UNIT TABLET PO SCH (08:18)
--- NOTE | 2020-10-06 09:03 | PN ---
DATE: 10/05/2020 SUBJECTIVE: The patient was seen today, met with the staff, chart reviewed. Also, covering for Dr. Chua. The patient continues to be delusional, paranoid, and agitated easily. He also exhibiting disorganized thinking. PHYSICAL EXAMINATION: VITAL SIGNS: Temperature 99.5, blood pressure 144/90, pulse 76, respirations 20, O2 sat 95. Slept about 7 hours last night. The patient's appetite is fair. The patient's medications reviewed and also lab reviewed. The patient is not having any side effects to the medications. 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 PLAN: To continue with the treatment. LENGTH OF STAY: Three to five days. ARABELLA/VENESSA DR: Kavitha TID: [id number]
[2020-10-06] MEDS: OLANZapine 2.5 MG TABLET PO PRN ×2 (11:35→18:32)
[2020-10-06] MEDS: hydrOXYzine HCL 25 MG TABLET PO PRN (11:35)
[2020-10-06] MEDS: QUEtiapine 50 MG TABLET. PO SCH ×2 (12:34→20:41)
--- NOTE | 2020-10-06 13:55 | NUR ---
Nursing note: Pt in dining room at time of AM med pass and assessment. She was pleasant, compliant with meds whole and cooperative with assessment. She denied having any pain/concerns. Later in morning, pt began yelling out for a "little boy" demanding to speak to people about where this "little boy has gone". Pt unable to be redirected. PRNs administered with good effect. She is currently in the day room for meditation group. Will continue to monitor.
[2020-10-06 18:45] VITALS: BP 128/75
[2020-10-06] MEDS: MELATONIN 3 MG TABLET PO SCH (20:40)
[2020-10-06] MEDS: MIRTAZAPINE 15 MG TABLET PO SCH (20:41)
--- NOTE | 2020-10-06 22:51 | NUR ---
PT in dayroom at time of assessment and medication administration. PT only oriented to self. PT agitated with disorganized thinking. PT initially resistive to medications, eventually able to convince to take her medications.
[2020-10-07 05:46] VITALS: BP 139/67
[2020-10-07] MEDS: metFORMIN 500 MG TABLET PO SCH (08:38)
[2020-10-07] MEDS: ACETAMINOPHEN 500 MG TABLET PO SCH ×3 (08:39→20:57)
[2020-10-07] MEDS: CHOLECALCIFEROL (VITAMIN D3) 50,000 UNIT CAPSULE PO SCH (08:39)
[2020-10-07] MEDS: CHOLECALCIFEROL (VITAMIN D3) 1,000 UNIT TABLET PO SCH (08:39)
[2020-10-07] MEDS: amLODIPine BESYLATE 5 MG TABLET PO SCH (08:39)
[2020-10-07] MEDS: QUEtiapine 25 MG TABLET. PO SCH (08:39)
[2020-10-07] MEDS: DIVALPROEX 125 MG CAP.SPRINK PO SCH ×2 (08:39→20:58)
[2020-10-07] MEDS: LACTOBACILLUS RHAMNOSUS GG 1 CAPSULE. PO SCH ×2 (08:40→20:57)
[2020-10-07] MEDS: SERTRALINE 25 MG TABLET. PO SCH (08:40)
--- NOTE | 2020-10-07 11:09 | NUR ---
Nursing note: Pt in dining room at time of AM med pass and assessment. She was slightly agitated, but mostly redirectable. She was compliant with her meds whole, though she asked multiple times "why so many?" Pt was unable to retain education that was provided. She denies pain. She is currently sitting quietly in the day room. Will continue to monitor.
[2020-10-07] MEDS: QUEtiapine 50 MG TABLET. PO SCH ×2 (11:23→20:57)
[2020-10-07 16:01] VITALS: BP 114/69
[2020-10-07] MEDS: MELATONIN 3 MG TABLET PO SCH (20:57)
[2020-10-07] MEDS: MIRTAZAPINE 15 MG TABLET PO SCH (20:57)
[2020-10-07] MEDS: OLANZapine 2.5 MG TABLET PO PRN (20:59)
[2020-10-07] MEDS: traZODone 50 MG TABLET. PO PRN (20:59)
--- NOTE | 2020-10-07 23:45 | NUR ---
Pt wandering unit this evening, highly anxious and delusional. Pt looking for her "little boy." Redirection unsuccessful. Compliant with crushed medications with coaxing. PRN Trazodone and Zyprexa administered with HS medications.
--- NOTE | 2020-10-08 00:17 | PN ---
DATE: 10/06/2020 SUBJECTIVE: The patient was seen today by telehealth, discussed patient's problems with the staff and also chart reviewed. The patient continues to have behavior problems, delusional, paranoid, and agitated easily. The patient is having difficulty with her thinking processes and gets confused. OBSERVATION: Vital signs stable. The patient's sleep improved. The patient's medication and lab reviewed. The patient did not have any falls. 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 PLAN: To continue with the treatment. LENGTH OF STAY: Three to five days. MICHELLE DR: Kavitha TID: [id number]
--- NOTE | 2020-10-08 00:20 | PN ---
DATE: 10/07/2020 SUBJECTIVE: The patient was seen today, met with the staff, chart reviewed. Staff reports increased agitation and resistive to care. The patient's behavior fluctuates. The patient has been compliant with the medications. PHYSICAL EXAMINATION: VITAL SIGNS: Temperature 99.0, blood pressure 139/67, pulse 99, respirations 18. The patient slept about 5 hours last night. The patient's appetite improved. MEDICATIONS AND LABORATORY: Reviewed and also lab reviewed. 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 PLAN: To continue with the treatment. LENGTH OF STAY: 3 to [address]: Kavitha TID: [id number]
[2020-10-08 05:40] VITALS: BP 153/71
[2020-10-08] MEDS: metFORMIN 500 MG TABLET PO SCH (09:07)
[2020-10-08] MEDS: QUEtiapine 25 MG TABLET. PO SCH (09:07)
[2020-10-08] MEDS: ACETAMINOPHEN 500 MG TABLET PO SCH ×3 (09:08→20:15)
[2020-10-08] MEDS: DIVALPROEX 125 MG CAP.SPRINK PO SCH ×2 (09:08→20:14)
[2020-10-08] MEDS: SERTRALINE 25 MG TABLET. PO SCH (09:08)
[2020-10-08] MEDS: CHOLECALCIFEROL (VITAMIN D3) 1,000 UNIT TABLET PO SCH (09:08)
[2020-10-08] MEDS: amLODIPine BESYLATE 5 MG TABLET PO SCH (09:08)
[2020-10-08] MEDS: LACTOBACILLUS RHAMNOSUS GG 1 CAPSULE. PO SCH ×2 (09:08→20:14)
[2020-10-08] MEDS: QUEtiapine 50 MG TABLET. PO SCH ×2 (13:26→20:15)
[2020-10-08] MEDS: OLANZapine 2.5 MG TABLET PO PRN (15:05)
[2020-10-08 16:03] VITALS: BP 136/72
--- NOTE | 2020-10-08 18:30 | NUR ---
Patient was confused, wandering, delusional, hallucinating, and resistive to medications throughout the shift. She was more agitated in the afternoon, convinced she had to get home to take care of her son and accusing peers of taking her purse; prn medication provided per eMAR. Will continue to monitor and report to oncoming shift.
[2020-10-08] MEDS: MIRTAZAPINE 15 MG TABLET PO SCH (20:14)
[2020-10-08] MEDS: traZODone 50 MG TABLET. PO PRN (20:15)
[2020-10-08] MEDS: MELATONIN 3 MG TABLET PO SCH (20:15)
--- NOTE | 2020-10-09 00:44 | NUR ---
Pt sitting in day room when approached. Pt calm but anxious and irritable at times, and delusional. Pt looking for her "little boy" and her car. Pt does not believe that she is in the hospital. Pt cooperative with assessment and compliant with medications administered whole.
--- NOTE | 2020-10-09 02:26 | PN ---
DATE: 10/08/2020 SUBJECTIVE: The patient was seen today, met with the staff, chart reviewed, and also participated in a treatment review meeting. The patient's behavior remains the same. Continues to have mood swings and she has been compliant with the medications. OBSERVATION: VITAL SIGNS: Temperature 97.2, blood pressure 136/72, pulse 91, respirations 20, and O2 sat 96%. CURRENT MEDICATIONS: The patient's medications reviewed and not having any side effects. LABORATORY DATA: The patient's lab reviewed. 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 PLAN: To continue with treatment. LENGTH OF STAY: 3-5 days. PRABHU/CAMACHO/ORIANA DR: Kavitha TID: [id number]
[2020-10-09 05:59] VITALS: BP 168/88
[2020-10-09 06:31] LABS: BASO % 0 % (0-3); EOS # 0.5 x10^3/uL (0.0-0.7); EOS % 5 % (0-3); HEMATOCRIT 27.5 % (36.0-47.0); LYMPH # 1.9 x10^3/uL (1.0-4.8); LYMPH % 19 % (24-48); MEAN CORPUSCULAR HEMOGLOBIN 30 pg (25-35); MEAN CORPUSCULAR HGB CONC 33 g/dL (31-37); MEAN CORPUSCULAR VOLUME 92 fL (79-100); MONO % 11 % (0-9); NEUT # 6.4 x10^3uL (1.8-7.7); NEUT % 65 % (31-73); PLATELET COUNT 454 x10^3/uL (140-400); RED CELL DISTRIBUTION WIDTH 13.9 % (11.5-14.5); WHITE BLOOD COUNT 9.9 x10^3/uL (4.0-11.0)
[2020-10-09 06:55] LABS: ALBUMIN/GLOBULIN RATIO 0.7 (1.0-1.7); ALK PHOS 66 U/L (46-116); ALT (SGPT) 18 U/L (14-59); ANION GAP 12 (6-14); AST (SGOT) 14 U/L (15-37); BLOOD UREA NITROGEN 15 mg/dL (7-20); BUN/CREATININE RATIO 19 (6-20); CALCIUM 8.9 mg/dL (8.5-10.1); CARBON DIOXIDE 25 mmol/L (21-32); CHLORIDE 104 mmol/L (98-107); CREATININE 0.8 mg/dL (0.6-1.0); GFR 68.2; GLUCOSE 101 mg/dL (70-99); POTASSIUM 4.2 mmol/L (3.5-5.1); SODIUM 141 mmol/L (136-145); TOTAL BILIRUBIN 0.2 mg/dL (0.2-1.0); TOTAL PROTEIN 7.5 g/dL (6.4-8.2)
[2020-10-09 06:59] LABS: VAL ACID 44 mcg/mL (50-100)
[2020-10-09] MEDS: metFORMIN 500 MG TABLET PO SCH (08:13)
[2020-10-09] MEDS: QUEtiapine 25 MG TABLET. PO SCH (08:14)
[2020-10-09] MEDS: CHOLECALCIFEROL (VITAMIN D3) 1,000 UNIT TABLET PO SCH (08:14)
[2020-10-09] MEDS: ACETAMINOPHEN 500 MG TABLET PO SCH ×3 (08:14→20:15)
[2020-10-09] MEDS: LACTOBACILLUS RHAMNOSUS GG 1 CAPSULE. PO SCH ×2 (08:14→20:15)
[2020-10-09] MEDS: SERTRALINE 25 MG TABLET. PO SCH (08:14)
[2020-10-09] MEDS: DIVALPROEX 125 MG CAP.SPRINK PO SCH ×2 (08:15→20:14)
[2020-10-09] MEDS: amLODIPine BESYLATE 5 MG TABLET PO SCH (08:15)
[2020-10-09] MEDS: QUEtiapine 50 MG TABLET. PO SCH ×2 (12:12→20:15)
[2020-10-09 15:39] VITALS: BP 144/77
[2020-10-09] MEDS: traZODone 50 MG TABLET. PO PRN (20:15)
[2020-10-09] MEDS: MELATONIN 3 MG TABLET PO SCH (20:15)
[2020-10-09] MEDS: MIRTAZAPINE 15 MG TABLET PO SCH (20:15)
--- NOTE | 2020-10-10 01:19 | PN ---
DATE: 10/09/2020 DATE OF SERVICE: 10/09/2020 SUBJECTIVE: The patient was seen today, met with the staff, chart reviewed. The patient continues to be delusional, increased anxiety and also looking for her son and her car. She is medication compliant. OBSERVATION: VITAL SIGNS: Temperature 97.6, blood pressure 168/88, pulse 98, respirations 18, O2 sat 94%. GENERAL: Slept about 6 hours last night. The patient's appetite is fair. MEDICATIONS: The patient's medications reviewed and she is not having any side effects. LABORATORY DATA: The patient's lab reviewed. 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 PLAN: To continue with the treatment. LENGTH OF STAY: Three to five days. PRABHU/NEREYDA/ARIANA DR: PRABHU/jeri TID: [id number]
--- NOTE | 2020-10-10 01:27 | NUR ---
Pt up in w/c in the day room when approached. Pt calm, confused, and disorganized; less anxious and irritable than previously. Pt cooperative with assessment and compliant with medications administered whole.
[2020-10-10 06:12] VITALS: BP 174/82
[2020-10-10] MEDS: SERTRALINE 25 MG TABLET. PO SCH (08:08)
[2020-10-10] MEDS: QUEtiapine 25 MG TABLET. PO SCH (08:08)
[2020-10-10] MEDS: CHOLECALCIFEROL (VITAMIN D3) 1,000 UNIT TABLET PO SCH (08:08)
[2020-10-10] MEDS: metFORMIN 500 MG TABLET PO SCH (08:08)
[2020-10-10] MEDS: DIVALPROEX 125 MG CAP.SPRINK PO SCH ×2 (08:08→19:54)
[2020-10-10] MEDS: amLODIPine BESYLATE 5 MG TABLET PO SCH (08:08)
[2020-10-10] MEDS: LACTOBACILLUS RHAMNOSUS GG 1 CAPSULE. PO SCH ×2 (08:09→19:55)
[2020-10-10] MEDS: ACETAMINOPHEN 500 MG TABLET PO SCH ×3 (08:09→19:55)
[2020-10-10] MEDS: QUEtiapine 50 MG TABLET. PO SCH ×2 (13:28→19:54)
[2020-10-10 15:59] VITALS: BP 152/73
[2020-10-10] MEDS: MIRTAZAPINE 15 MG TABLET PO SCH (19:54)
[2020-10-10] MEDS: traZODone 50 MG TABLET. PO PRN (19:54)
[2020-10-10] MEDS: MELATONIN 3 MG TABLET PO SCH (19:55)
--- NOTE | 2020-10-10 22:47 | NUR ---
Pt up in w/c, self-propelling in the day room when approached. Pt calm, confused and disorganized, but interactive and social with staff and peers. Pt cooperative with assessment and compliant with medications administered whole. No delusions voiced thus far this shift.
--- NOTE | 2020-10-11 02:26 | PN ---
DATE: 10/10/2020 SUBJECTIVE: The patient was seen today, met with the staff, chart reviewed. Staff reports she is much calmer, confused and also medication compliant. OBSERVATION: VITAL SIGNS: Temperature 97.6, blood pressure 174/82, pulse 96, respirations 16, O2 sat 95%. GENERAL: Slept about 7 hours last night. The patient's appetite improved. ____ LABORATORY DATA: The patient's white cell count continues to be elevated. 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 PEPE DR: Kavitha TID: [id number]
[2020-10-11 05:56] VITALS: BP 156/68
[2020-10-11] MEDS ORDERED: ACETAMINOPHEN 500 MG TABLET PO PRN (07:30)
[2020-10-11] MEDS: QUEtiapine 25 MG TABLET. PO SCH (08:08)
[2020-10-11] MEDS: DIVALPROEX 125 MG CAP.SPRINK PO SCH ×2 (08:09→20:16)
[2020-10-11] MEDS: SERTRALINE 25 MG TABLET. PO SCH (08:09)
[2020-10-11] MEDS: metFORMIN 500 MG TABLET PO SCH (08:09)
[2020-10-11] MEDS: LACTOBACILLUS RHAMNOSUS GG 1 CAPSULE. PO SCH ×2 (08:09→20:15)
[2020-10-11] MEDS: amLODIPine BESYLATE 5 MG TABLET PO SCH (08:09)
[2020-10-11] MEDS: CHOLECALCIFEROL (VITAMIN D3) 1,000 UNIT TABLET PO SCH (08:09)
[2020-10-11] MEDS: QUEtiapine 50 MG TABLET. PO SCH ×2 (12:00→20:16)
[2020-10-11 15:24] VITALS: BP 149/65
--- NOTE | 2020-10-11 16:31 | NUR ---
NSG NOTE; shift behaviors ashvin has been calm, quiet and med compliant today, even when her roommate took away her wheelchair while she was on the toilet. she was confused about the other pt's behavior. ashvin can answer yes and no questions but has trouble with longer sentences making sense. she answers "what are you talking about" when given longer explanations
[2020-10-11] MEDS: MIRTAZAPINE 15 MG TABLET PO SCH (20:15)
[2020-10-11] MEDS: MELATONIN 3 MG TABLET PO SCH (20:16)
--- NOTE | 2020-10-11 23:44 | NUR ---
Nursing Note The patient was located in her room laying in bed for her assessment and medication pass. The patient was alert to name only during her assessment. The patient was very disoriented and repeated the same questions throughout interactions with this nurse. The patient was compliant with her medications and took them whole. The patient is currently sleeping in her room.
--- NOTE | 2020-10-12 00:52 | PN ---
DATE: 10/11/2020 SUBJECTIVE: The patient was seen today, met with the staff and chart reviewed. The patient's behavior improved, still confused, but cooperative and medication compliant. OBSERVATION: VITAL SIGNS: Temperature 97.7, blood pressure 156/68, pulse 96, respirations 20, O2 sat 96%. GENERAL: Slept about 7 hours last night. The patient's appetite is fair. CURRENT MEDICATIONS: The patient's medications reviewed, not having any side effects. LABORATORY DATA: The patient's lab reviewed. 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 LENGTH OF STAY: 5-[address]: Kavitha TID: [id number]
[2020-10-12 05:35] VITALS: BP 171/77
[2020-10-12] MEDS: SERTRALINE 25 MG TABLET. PO SCH (08:19)
[2020-10-12] MEDS: metFORMIN 500 MG TABLET PO SCH (08:19)
[2020-10-12] MEDS: QUEtiapine 25 MG TABLET. PO SCH (08:20)
[2020-10-12] MEDS: CHOLECALCIFEROL (VITAMIN D3) 1,000 UNIT TABLET PO SCH (08:20)
[2020-10-12] MEDS: DIVALPROEX 125 MG CAP.SPRINK PO SCH ×2 (08:20→20:41)
[2020-10-12] MEDS: LACTOBACILLUS RHAMNOSUS GG 1 CAPSULE. PO SCH ×2 (08:20→20:41)
[2020-10-12] MEDS: amLODIPine BESYLATE 5 MG TABLET PO SCH (08:20)
[2020-10-12] MEDS: QUEtiapine 50 MG TABLET. PO SCH ×2 (12:34→20:41)
--- NOTE | 2020-10-12 13:24 | TX PLAN ---
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 Per Shandra, pt is generally pretty good at masking when she isn't feeling well. Her baseling, according to Shandra is that she will tell you she is fine and that she is generally complacent on how she is feeling. Shandra states that is is generally confused and this is normal. Shandra reports that pt has a significant history of ETOH and drug usage, that has most likely contributed to her overall health condition and confusion. Additional Admission Comments: Per intake record, pt stated she wants to kill herself, yelling, threatening to hit others, name calling, insomnia, refusing cares, talking to son who isn't there. Problems Active Problems: lack of sleep, hallucinations, confusion, agitation Inactive Problems: None noted at this time. Pt Strengths/Limitations Ability for [place]: Poor Cognitive Functioning/Ability: Poor Communication Skills/Ability: Fair Financial Resources: Fair Insight/Judgement: Poor Intellectual Ability: Fair Physical Health: Poor Social Skills: Fair Stability in Family: Fair Stability in School/Work: Fair Verbal Skills: Fair Discharge Criteria Discharge Criteria: Adequate arrangements @DC, Verbal commit med comply, I mproved behavior, Improved mood/thought Other Discharge Comments: None at this time. Preliminary Discharge Plan Preliminary DC Plan: Current Living Arrange. Special Precautions Special Precautions: Agitation/Assault Fall Risk: Moderate Initial D/C Plan Pt plan is to return to [place]. Identified Discharge Needs: None noted at this time. Currently Utilized Resources Currently Utilized Resources/P: PCP-Dr. Jonny MACK/Nje-fp-njp-[facility] Referrals Community Resources: None noted at this time. Identified Problems/Hx/Goals Objectives/Short-Term Goals Short Term Goals: Control abnormal behavior, Dec. Hallucination/Delus, Dec. Outbursts, Medication Stabilization, Monitor Med Effects Short Term Goals in Patient's: Control delusions/hallucinations, reduce outbursts, stabilize medications to help improve mood. Interventions/Frequency Staff Interventions/Frequency&: Psychiatry to assess pt three times per week for medication management. Nursing to asses behaviors, monitor medications, and complete 15 minute checks daily. Social work to see pt at least two times weekly to aid in return to placement. Activities to encourage pt to participate in group activities daily. 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 She was able to interview several [place] celebrities. Education: Pt graduated in [place] and has the equivalence of a high school education. She did attend sales secretary school in [place] following high school. Community Follow-up PCP Community Provider/Family Inpu: Dtr-in-law/FREDERICK, Christelle, is aware of pt's hospitalization at [facility]. She provided social history and is available for further informatin if needed. Treatment Plan Explained Patient/Die Try Out Worker Stamping had this treatment plan explained to him/her as indicated by the signature below and has been given the opportunity to ask questions and make suggestions: Date: Patient/Die Try Out Worker Stamping Signature: Status Update Update Pt continues to eat an average of 75% of her meals and get 6 hours of sleep per night. Pt demonstrating less irritability and more social with staff and peers. Pt is compliant with medications. Pt still occasionally looks around the unit for her son that she thinks is still a little boy or she will try to find her purse. This level of confusion is baseline for her. Pt can answer yes/no questions but has trouble with longer sentences making sense. Frustration increases if pt is given longer explanations about things. She does attend most groups, but isn't really able to remain engaged d/t to the progression of her dementia. Zoloft will be increased to 100mg and pt is scheduled for discharge tomorrow provided facility receives signed med orders between tonight (10/12/20) and tomorrow am (10/13/20). GUICHO CHATMAN October 12, 2020 13:24
--- NOTE | 2020-10-12 13:25 | NUR ---
WEEKLY NOTE: Pt continues to eat an average of 75% of her meals and get 6 hours of sleep per night. Pt demonstrating less irritability and more social with staff and peers. Pt is compliant with medications. Pt still occasionally looks around the unit for her son that she thinks is still a little boy or she will try to find her purse. This level of confusion is baseline for her. Pt can answer yes/no questions but has trouble with longer sentences making sense. Frustration increases if pt is given longer explanations about things. She does attend most groups, but isn't really able to remain engaged d/t to the progression of her dementia. Zoloft will be increased to 100mg and pt is scheduled for discharge tomorrow (10/13/20) provided facility receives signed med orders between tonight (10/12/20) and tomorrow am (10/13/20). SHARRON spoke with facility to update and faxed current updates as well. SHARRON will contact facility tomorrow am to confirm receipt of med orders and schedule d/c time frame. SHARRON notified OA of same.
--- NOTE | 2020-10-12 13:29 | NUR ---
[facility] Social Work Discharge Planning Form Patient Name NAOMI HAYNES Admit Date: 09/11/20 DISCHARGE PLAN Discharge Destination: [facility] Assessment: No Level II Assessment: No Transportation: Transportation will be scheduled following facility's receipt of signed med orders. Special Instructions/Notes: Please fax signed d/c med orders to fax number below. SW will contact facility early on 10/13/20 to confirm receipt of med orders and p/u time will then be scheduled. DISCHARGE TO FACILITY Facility: [facility] or [phone] Address: [facility] [address] Contact Name: Syeda PCP: Dr. Fuller Psychiatrist: None
--- NOTE | 2020-10-12 13:32 | NUR ---
WEEKLY ACTIVITY THERAPY NOTE Date of Admission: 09/11/20 Date of AT Assessment: 09/14 Precipitating behaviors that initiated intake and admission: stated she wants to kill herself, yelling, threatening to hit others, name calling, insomnia, refusing cares, talking to son who's not there Goal aimed: increase relaxation and time management skills Initial Goal: Pt will participate in at least three individual or group Activity Therapy sessions before discharge. Weekly progress towards goal: achieved (10/02-chocolate chip day trivia and cookies, 10/09-Never Have I Ever and bucket list, 1:1) Group participation level: 1 min Weekly highlights: talked with SW in group when questions were written on a whiteboard Behaviors observed: calling staff idiots Monday morning Plan: no change to goal- pending discharge Beneficial adaptations:
[2020-10-12 15:38] VITALS: BP 130/73
--- NOTE | 2020-10-12 17:40 | NUR ---
Patient has been calm, compliant, and pleasantly confused throughout this shift, mainly sitting calmly in the day room. Will continue to monitor and report to oncoming shift.
[2020-10-12] MEDS: MIRTAZAPINE 15 MG TABLET PO SCH (20:41)
[2020-10-12] MEDS: MELATONIN 3 MG TABLET PO SCH (20:41)
--- NOTE | 2020-10-12 21:51 | PDOC ---
Exam Note: Hasmukh Note: Please also refer to the separate dictated note~for this date of service dictated separately.~Patient seen individually. Discussed the patient with Nursing staff reviewed the chart.~Reviewed interim history and current functioning. Reviewed vital signs,~Labs/ Radiology~and current medications noted below. Continue current treatment with the changes noted in the dictated addendum note Assessment: Vital Signs/I&O: Vital Signs Date Time Temp Pulse Resp B/P (MAP) Pulse Ox O2 Delivery O2 Flow Rate FiO2 10/12/20 15:38 98.3 86 16 130/73 (92) 95.0 10/12/20 05:35 94 10/11/20 05:56 Room Air I & O 10/11/20 10/11/20 10/12/20 15:00 23:00 07:00 Intake Total 840 ml 480 ml Balance 840 ml 480 ml Current Medications: Meds: Current Medications Medications (Trade) Dose Ordered Sig/Jose Luis Route PRN Reason Start Time Stop Time Status Last Admin Dose Admin Acetaminophen (Tylenol) 650 mg PRN Q6HRS PRN PO MILD PAIN / TEMP > 100.3'F 09/11/20 16:15 10/11/20 07:34 DC 10/04/20 11:25 Multi-Ingredient Ointment (Analgesic [place]) 1 maritza PRN QID PRN TP MUSCLE PAIN 09/11/20 16:15 Al Hydroxide/Mg Hydroxide (Mylanta Plus Xs) 15 ml PRN AFTMEALHC PRN PO DYSPEPSIA 09/11/20 16:15 Magnesium Hydroxide (Milk Of Magnesia) 2,400 mg PRN QHS PRN PO CONSTIPATION 09/11/20 16:15 Acetaminophen (Tylenol) 1,000 mg TID PO 09/11/20 21:00 10/11/20 07:30 DC 10/10/20 19:55 Amlodipine Besylate (Norvasc) 5 mg DAILY PO 09/12/20 09:00 10/12/20 08:20 Vitamin D (Vitamin D3) 50,000 unit WEEKLY PO 09/16/20 09:00 10/07/20 08:39 Lactobacillus Rhamnosus (Culturelle) 1 cap BID PO 09/11/20 21:00 10/12/20 20:41 Lidocaine (Lidoderm) 1 patch DAILY TP 09/12/20 09:00 09/20/20 05:10 DC 09/19/20 08:51 Metformin HCl (Glucophage) 500 mg DAILYWBKFT PO 09/12/20 08:00 10/12/20 08:19 Olanzapine (ZyPREXA) 2.5 mg PRN Q4HRS PRN PO ANXIETY 09/11/20 16:15 09/17/20 15:45 DC 09/17/20 13:32 Olanzapine (ZyPREXA) 5 mg QHS PO 09/11/20 21:00 09/15/20 17:07 DC 09/14/20 19:25 Vitamin D (Vitamin D3) 1,000 unit DAILY PO 09/12/20 09:00 10/12/20 08:20 Cefdinir (Omnicef) 300 mg BID PO 09/12/20 09:00 09/16/20 21:01 DC 09/16/20 20:05 Mirtazapine (Remeron) 7.5 mg QHS PO 09/12/20 21:00 09/16/20 17:59 DC 09/15/20 20:14 Trazodone HCl (Desyrel) 50 mg PRN QHS PRN PO INSOMNIA 09/12/20 18:15 10/10/20 19:54 Melatonin (Melatonin) 3 mg HS PO 09/13/20 21:00 10/12/20 20:41 Quetiapine Fumarate (SEROquel) 12.5 mg 0900,1300,1700 PO 09/16/20 17:15 09/23/20 17:30 DC 09/23/20 17:00 Mirtazapine (Remeron) 15 mg QHS PO 09/16/20 21:00 10/12/20 20:41 Sertraline HCl (Zoloft) 25 mg DAILY PO 09/17/20 09:00 09/20/20 08:59 DC 09/19/20 08:51 Sertraline HCl (Zoloft) 50 mg DAILY PO 09/20/20 09:00 09/22/20 10:01 DC 09/22/20 08:34 Olanzapine (ZyPREXA) 2.5 mg PRN Q2HR PRN PO ANXIETY 09/17/20 15:45 10/09/20 03:44 DC 10/08/20 15:05 Hydroxyzine HCl (Atarax) 25 mg TID PRN PRN PO ITCHING 09/17/20 15:45 10/06/20 11:35 Lidocaine (Lidoderm) 1 patch PRN DAILY PRN TP TOPICAL PAIN 09/20/20 05:15 Miscellaneous (Lidoderm Patch Removal) 1 ea QHS MC 09/20/20 21:00 09/23/20 20:12 DC 09/21/20 21:00 Sertraline HCl (Zoloft) 75 mg DAILY PO 09/23/20 09:00 10/12/20 12:40 DC 10/12/20 08:19 Quetiapine Fumarate (SEROquel) 12.5 mg 0900,1700 PO 09/24/20 09:00 09/25/20 03:14 DC 09/24/20 16:52 Quetiapine Fumarate (SEROquel) 25 mg 1300 PO 09/24/20 13:00 09/28/20 11:48 DC 09/27/20 13:03 Quetiapine Fumarate (SEROquel) 25 mg 0900,1700 PO 09/25/20 09:00 09/28/20 11:48 DC 09/28/20 08:06 Quetiapine Fumarate (SEROquel) 25 mg BID92 PO 09/28/20 14:00 10/05/20 15:49 DC 10/05/20 14:03 Quetiapine Fumarate (SEROquel) 50 mg HS PO 09/28/20 21:00 10/05/20 15:49 DC 10/04/20 19:38 Quetiapine Fumarate (SEROquel) 50 mg 1200,2100 PO 10/05/20 21:00 10/12/20 20:41 Quetiapine Fumarate (SEROquel) 25 mg DAILY PO 10/06/20 09:00 10/12/20 08:20 Divalproex Sodium (Depakote Sprinkles) 250 mg BID PO 10/05/20 21:00 10/12/20 20:41 Olanzapine (ZyPREXA ZYDIS) 2.5 mg PRN Q2HRS PRN PO PSYCHOSIS 10/09/20 03:45 Acetaminophen (Tylenol) 1,000 mg PRN TID PRN PO MILD PAIN / TEMP > 100.3'F 10/11/20 07:30 Sertraline HCl (Zoloft) 100 mg DAILY PO 10/13/20 09:00 I have reviewed the current psychotropics carefully including drug interactions. Risk benefit ratio favors no change other than as noted in my dictated progress note. 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
--- NOTE | 2020-10-13 01:15 | NUR ---
Nursing Note The patient was calm and compliant for her assessment and medication pass. The patine took her medication whole. The patient was alert to name only but was pleasant during interactions. The patient continues to have a startle response when others move rapidly near her. The patient is currently sleeping in her room.
[2020-10-13] MEDS ORDERED: METH57CR17 TP (02:00)
[2020-10-13] MEDS ORDERED: DIVA125C2 PO (02:01)
[2020-10-13] MEDS ORDERED: MIRT15TA3 PO (02:03)
[2020-10-13] MEDS ORDERED: SERT100T PO (02:05)
[2020-10-13] MEDS ORDERED: TRAZ-120 PO (02:06)
[2020-10-13] MEDS ORDERED: QUET25TA5 PO (02:07)
[2020-10-13] MEDS ORDERED: QUET50TA5 PO (02:08)
[2020-10-13] MEDS ORDERED: HYDR25TA PO (02:11)
[2020-10-13] MEDS ORDERED: MAG30ORA2 PO (02:12)
[2020-10-13] MEDS ORDERED: MAGN400O7 PO (02:12)
[2020-10-13] MEDS ORDERED: MELA3TAB4 PO (02:13)
[2020-10-13 05:40] VITALS: BP 164/86
[2020-10-13 08:56] VITALS: BP 164/86
[2020-10-13] MEDS: amLODIPine BESYLATE 5 MG TABLET PO SCH (08:56)
[2020-10-13] MEDS: CHOLECALCIFEROL (VITAMIN D3) 1,000 UNIT TABLET PO SCH (08:56)
[2020-10-13] MEDS: QUEtiapine 25 MG TABLET. PO SCH (08:56)
[2020-10-13] MEDS: LACTOBACILLUS RHAMNOSUS GG 1 CAPSULE. PO SCH (08:56)
[2020-10-13] MEDS: metFORMIN 500 MG TABLET PO SCH (08:56)
[2020-10-13] MEDS: DIVALPROEX 125 MG CAP.SPRINK PO SCH (08:57)
[2020-10-13] MEDS ORDERED: SERTRALINE 100 MG TABLET. PO SCH (09:00)
[2020-10-13] MEDS: QUEtiapine 50 MG TABLET. PO SCH (12:01)
--- NOTE | 2020-10-13 13:10 | NUR ---
Transition Record was faxed to follow-up provider with the following elements: Reason for admission, procedures, tests, principal diagnosis, pending studies, patient instructions, 12/12 contact information for unit, phone number to obtain pending test results, plan for follow-up care, physician follow-up, advanced directive information, and medication list with dose, duration and instructions. This information was included in the following documents: History and physical, lab results, study results, progress notes, social work planning form, DC instruction form, patient visit summary, and medication reconciliation form. Date & time record faxed: 4:07 13 Oct 2020 Record faxed to: [employer] Record discussed with/ report given to: ANNE-MARIE Cam[place] at [employer]
--- NOTE | 2020-10-13 21:55 | PDOC ---
Exam Note: Hasmukh Note: Please also refer to the separate dictated note~for this date of service dictated separately.~Patient seen individually. Discussed the patient with Nursing staff reviewed the chart.~Reviewed interim history and current functioning. Reviewed vital signs,~Labs/ Radiology~and current medications noted below. Continue current treatment with the changes noted in the dictated addendum note Assessment: Vital Signs/I&O: Vital Signs Date Time Temp Pulse Resp B/P (MAP) Pulse Ox O2 Delivery O2 Flow Rate FiO2 10/13/20 08:56 95 164/86 10/13/20 05:40 98.5 20 94 10/12/20 15:38 95.0 10/11/20 05:56 Room Air I & O 10/12/20 10/12/20 10/13/20 15:00 23:00 07:00 Intake Total 960 ml 440 ml Balance 960 ml 440 ml Current Medications: Meds: Current Medications Medications (Trade) Dose Ordered Sig/Jose Luis Route PRN Reason Start Time Stop Time Status Last Admin Dose Admin Acetaminophen (Tylenol) 650 mg PRN Q6HRS PRN PO MILD PAIN / TEMP > 100.3'F 09/11/20 16:15 10/11/20 07:34 DC 10/04/20 11:25 Multi-Ingredient Ointment (Analgesic [place]) 1 maritza PRN QID PRN TP MUSCLE PAIN 09/11/20 16:15 10/13/20 13:13 DC Al Hydroxide/Mg Hydroxide (Mylanta Plus Xs) 15 ml PRN AFTMEALHC PRN PO DYSPEPSIA 09/11/20 16:15 10/13/20 13:13 DC Magnesium Hydroxide (Milk Of Magnesia) 2,400 mg PRN QHS PRN PO CONSTIPATION 09/11/20 16:15 10/13/20 13:13 DC Acetaminophen (Tylenol) 1,000 mg TID PO 09/11/20 21:00 10/11/20 07:30 DC 10/10/20 19:55 Amlodipine Besylate (Norvasc) 5 mg DAILY PO 09/12/20 09:00 10/13/20 13:13 DC 10/13/20 08:56 Vitamin D (Vitamin D3) 50,000 unit WEEKLY PO 09/16/20 09:00 10/13/20 13:13 DC 10/07/20 08:39 Lactobacillus Rhamnosus (Culturelle) 1 cap BID PO 09/11/20 21:00 10/13/20 13:13 DC 10/13/20 08:56 Lidocaine (Lidoderm) 1 patch DAILY TP 09/12/20 09:00 09/20/20 05:10 DC 09/19/20 08:51 Metformin HCl (Glucophage) 500 mg DAILYWBKFT PO 09/12/20 08:00 10/13/20 13:13 DC 10/13/20 08:56 Olanzapine (ZyPREXA) 2.5 mg PRN Q4HRS PRN PO ANXIETY 09/11/20 16:15 09/17/20 15:45 DC 09/17/20 13:32 Olanzapine (ZyPREXA) 5 mg QHS PO 09/11/20 21:00 09/15/20 17:07 DC 09/14/20 19:25 Vitamin D (Vitamin D3) 1,000 unit DAILY PO 09/12/20 09:00 10/13/20 13:13 DC 10/13/20 08:56 Cefdinir (Omnicef) 300 mg BID PO 09/12/20 09:00 09/16/20 21:01 DC 09/16/20 20:05 Mirtazapine (Remeron) 7.5 mg QHS PO 09/12/20 21:00 09/16/20 17:59 DC 09/15/20 20:14 Trazodone HCl (Desyrel) 50 mg PRN QHS PRN PO INSOMNIA 09/12/20 18:15 10/13/20 13:13 DC 10/10/20 19:54 Melatonin (Melatonin) 3 mg HS PO 09/13/20 21:00 10/13/20 13:13 DC 10/12/20 20:41 Quetiapine Fumarate (SEROquel) 12.5 mg 0900,1300,1700 PO 09/16/20 17:15 09/23/20 17:30 DC 09/23/20 17:00 Mirtazapine (Remeron) 15 mg QHS PO 09/16/20 21:00 10/13/20 13:13 DC 10/12/20 20:41 Sertraline HCl (Zoloft) 25 mg DAILY PO 09/17/20 09:00 09/20/20 08:59 DC 09/19/20 08:51 Sertraline HCl (Zoloft) 50 mg DAILY PO 09/20/20 09:00 09/22/20 10:01 DC 09/22/20 08:34 Olanzapine (ZyPREXA) 2.5 mg PRN Q2HR PRN PO ANXIETY 09/17/20 15:45 10/09/20 03:44 DC 10/08/20 15:05 Hydroxyzine HCl (Atarax) 25 mg TID PRN PRN PO ITCHING 09/17/20 15:45 10/13/20 13:13 DC 10/06/20 11:35 Lidocaine (Lidoderm) 1 patch PRN DAILY PRN TP TOPICAL PAIN 09/20/20 05:15 10/13/20 13:13 DC Miscellaneous (Lidoderm Patch Removal) 1 ea QHS MC 09/20/20 21:00 09/23/20 20:12 DC 09/21/20 21:00 Sertraline HCl (Zoloft) 75 mg DAILY PO 09/23/20 09:00 10/12/20 12:40 DC 10/12/20 08:19 Quetiapine Fumarate (SEROquel) 12.5 mg 0900,1700 PO 09/24/20 09:00 09/25/20 03:14 DC 09/24/20 16:52 Quetiapine Fumarate (SEROquel) 25 mg 1300 PO 09/24/20 13:00 09/28/20 11:48 DC 09/27/20 13:03 Quetiapine Fumarate (SEROquel) 25 mg 0900,1700 PO 09/25/20 09:00 09/28/20 11:48 DC 09/28/20 08:06 Quetiapine Fumarate (SEROquel) 25 mg BID92 PO 09/28/20 14:00 10/05/20 15:49 DC 10/05/20 14:03 Quetiapine Fumarate (SEROquel) 50 mg HS PO 09/28/20 21:00 10/05/20 15:49 DC 10/04/20 19:38 Quetiapine Fumarate (SEROquel) 50 mg 1200,2100 PO 10/05/20 21:00 10/13/20 13:13 DC 10/13/20 12:01 Quetiapine Fumarate (SEROquel) 25 mg DAILY PO 10/06/20 09:00 10/13/20 13:13 DC 10/13/20 08:56 Divalproex Sodium (Depakote Sprinkles) 250 mg BID PO 10/05/20 21:00 10/13/20 13:13 DC 10/13/20 08:57 Olanzapine (ZyPREXA ZYDIS) 2.5 mg PRN Q2HRS PRN PO PSYCHOSIS 10/09/20 03:45 10/13/20 13:13 DC Acetaminophen (Tylenol) 1,000 mg PRN TID PRN PO MILD PAIN / TEMP > 100.3'F 10/11/20 07:30 10/13/20 13:13 DC Sertraline HCl (Zoloft) 100 mg DAILY PO 10/13/20 09:00 10/13/20 13:13 DC 10/13/20 08:56 Current Medications Medications (Trade) Dose Ordered Sig/Jose Luis Route PRN Reason Start Time Stop Time Status Last Admin Dose Admin Sertraline HCl (Zoloft) 100 mg DAILY PO 10/13/20 09:00 10/13/20 13:13 DC 10/13/20 08:56 I have reviewed the current psychotropics carefully including drug interactions. Risk benefit ratio favors no change other than as noted in my dictated progress note. 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
--- NOTE | 2020-10-13 22:35 | DS ---
DATE OF DISCHARGE: 10/13/2020 DISCHARGE SUMMARY/PSYCHIATRIC PROGRESS NOTE. This note covers the elements not covered in my initial note on 10/13/2020. REASON FOR ADMISSION: Please refer to the admission history for details. Briefly, the patient is an 85-year-old female referred to us from [facility] by Dr. Fuller on account of worsening confusion, delusions and anxiety. She was making statement she wanted to kill herself and was yelling, threatening to hit others, name calling, having marked insomnia, refusing cares, talking to her son who was not there. The patient's behaviors were dangerous, unmanageable at the facility, had failed outpatient psychiatric interventions resulting in this referral. SIGNIFICANT FINDINGS AND CLINICAL COURSE: Following admission, the patient was seen daily individually by myself from a psychiatric standpoint. Medical followup with Dr. Fuller/Dr. Vera. The patient remained confused, extremely anxious, restless, agitated, paranoid, disruptive on the unit. Adjustments were made in her psychotropics and she seemed to respond to a combination of Seroquel 25 mg daily, 50 mg b.i.d., Zyprexa p.r.n., trazodone 50 mg at bedtime p.r.n., may repeat x1, melatonin 3 mg at bedtime, hydroxyzine 25 mg t.i.d. p.r.n., Zoloft 100 mg a day, Depakote sprinkles 250 mg b.i.d., valproic acid level was therapeutic at 44, but clinically adequate. She was also on Remeron 15 mg at bedtime prior to discharge on 10/13/2020. REVIEW OF SYSTEMS: Ambulation impaired in wheelchair. No CV, , pulmonary, eye, ENT system symptoms on review. MENTAL STATUS EXAMINATION: Oriented to herself. Insight, judgment, recent and remote memory, attention, concentration, fund of knowledge poor consistent with her diagnoses. FINAL DIAGNOSES: Major neurocognitive disorder, Alzheimer, vascular with delusion, depression, behavioral disturbance, anxiety disorder, unspecified; impulse control disorder, unspecified. Rest unchanged from admission. DISCHARGE MEDICATIONS: Please refer to the MRAD. DISCHARGE INSTRUCTIONS: Outpatient psychiatric and medical followup at [facility] [place] [facility]. Time for discharge day management greater than [address]: Rolando TID: [id number]
--- NOTE | 2020-10-14 07:12 | PDOC ---
Exam Note: Hasmukh Note: This note is a late entry for 09/25/2020 covers elements not covered in my initial note. Subjective: This note was initially completed on 09/25/2020 but cannot be retrieved in the electronic medical system and is being re-dictated today 10/13/2020. The patient was seen individually in the evening of 09/25/2020 with Odell XIE, discussed and reviewed the chart. She was somewhat delusional, agitated previous evening and has done reasonably better during the day today. She remains confused. Review of Systems: Ambulation impaired in wheelchair with 2-person transfer. No CV, , pulmonary, eye, ENT system symptoms on review. Mental Status Exam: The patient is oriented to herself. Insight and judgment, recent and remote memory, attention and concentration, fund of knowledge is poor consistent with her diagnoses. Laboratory Data: Reviewed. Impression: Major neurocognitive disorder Alzheimer vascular with delusion, depression, behavioral disturbance. Anxiety disorder unspecified. Impulse control disorder unspecified. Plan: Continue psychotropics from initial note. Dr. Fisher will cover for me starting from 09/26/2020 at 8 a.m. till 10/11/2020 at 8 p.m. Assessment: Vital Signs/I&O: Vital Signs Date Time Temp Pulse Resp B/P (MAP) Pulse Ox O2 Delivery O2 Flow Rate FiO2 10/13/20 08:56 95 164/86 10/13/20 05:40 98.5 20 94 10/12/20 15:38 95.0 10/11/20 05:56 Room Air I & O 10/13/20 10/13/20 10/14/20 15:00 23:00 07:00 Intake Total 600 ml Balance 600 ml Current Medications: Meds: Current Medications Medications (Trade) Dose Ordered Sig/Jose Luis Route PRN Reason Start Time Stop Time Status Last Admin Dose Admin Acetaminophen (Tylenol) 650 mg PRN Q6HRS PRN PO MILD PAIN / TEMP > 100.3'F 09/11/20 16:15 10/11/20 07:34 DC 10/04/20 11:25 Multi-Ingredient Ointment (Analgesic [place]) 1 maritza PRN QID PRN TP MUSCLE PAIN 09/11/20 16:15 10/13/20 13:13 DC Al Hydroxide/Mg Hydroxide (Mylanta Plus Xs) 15 ml PRN AFTMEALHC PRN PO DYSPEPSIA 09/11/20 16:15 10/13/20 13:13 DC Magnesium Hydroxide (Milk Of Magnesia) 2,400 mg PRN QHS PRN PO CONSTIPATION 09/11/20 16:15 10/13/20 13:13 DC Acetaminophen (Tylenol) 1,000 mg TID PO 09/11/20 21:00 10/11/20 07:30 DC 10/10/20 19:55 Amlodipine Besylate (Norvasc) 5 mg DAILY PO 09/12/20 09:00 10/13/20 13:13 DC 10/13/20 08:56 Vitamin D (Vitamin D3) 50,000 unit WEEKLY PO 09/16/20 09:00 10/13/20 13:13 DC 10/07/20 08:39 Lactobacillus Rhamnosus (Culturelle) 1 cap BID PO 09/11/20 21:00 10/13/20 13:13 DC 10/13/20 08:56 Lidocaine (Lidoderm) 1 patch DAILY TP 09/12/20 09:00 09/20/20 05:10 DC 09/19/20 08:51 Metformin HCl (Glucophage) 500 mg DAILYWBKFT PO 09/12/20 08:00 10/13/20 13:13 DC 10/13/20 08:56 Olanzapine (ZyPREXA) 2.5 mg PRN Q4HRS PRN PO ANXIETY 09/11/20 16:15 09/17/20 15:45 DC 09/17/20 13:32 Olanzapine (ZyPREXA) 5 mg QHS PO 09/11/20 21:00 09/15/20 17:07 DC 09/14/20 19:25 Vitamin D (Vitamin D3) 1,000 unit DAILY PO 09/12/20 09:00 10/13/20 13:13 DC 10/13/20 08:56 Cefdinir (Omnicef) 300 mg BID PO 09/12/20 09:00 09/16/20 21:01 DC 09/16/20 20:05 Mirtazapine (Remeron) 7.5 mg QHS PO 09/12/20 21:00 09/16/20 17:59 DC 09/15/20 20:14 Trazodone HCl (Desyrel) 50 mg PRN QHS PRN PO INSOMNIA 09/12/20 18:15 10/13/20 13:13 DC 10/10/20 19:54 Melatonin (Melatonin) 3 mg HS PO 09/13/20 21:00 10/13/20 13:13 DC 10/12/20 20:41 Quetiapine Fumarate (SEROquel) 12.5 mg 0900,1300,1700 PO 09/16/20 17:15 09/23/20 17:30 DC 09/23/20 17:00 Mirtazapine (Remeron) 15 mg QHS PO 09/16/20 21:00 10/13/20 13:13 DC 10/12/20 20:41 Sertraline HCl (Zoloft) 25 mg DAILY PO 09/17/20 09:00 09/20/20 08:59 DC 09/19/20 08:51 Sertraline HCl (Zoloft) 50 mg DAILY PO 09/20/20 09:00 09/22/20 10:01 DC 09/22/20 08:34 Olanzapine (ZyPREXA) 2.5 mg PRN Q2HR PRN PO ANXIETY 09/17/20 15:45 10/09/20 03:44 DC 10/08/20 15:05 Hydroxyzine HCl (Atarax) 25 mg TID PRN PRN PO ITCHING 09/17/20 15:45 10/13/20 13:13 DC 10/06/20 11:35 Lidocaine (Lidoderm) 1 patch PRN DAILY PRN TP TOPICAL PAIN 09/20/20 05:15 10/13/20 13:13 DC Miscellaneous (Lidoderm Patch Removal) 1 ea QHS MC 09/20/20 21:00 09/23/20 20:12 DC 09/21/20 21:00 Sertraline HCl (Zoloft) 75 mg DAILY PO 09/23/20 09:00 10/12/20 12:40 DC 10/12/20 08:19 Quetiapine Fumarate (SEROquel) 12.5 mg 0900,1700 PO 09/24/20 09:00 09/25/20 03:14 DC 09/24/20 16:52 Quetiapine Fumarate (SEROquel) 25 mg 1300 PO 09/24/20 13:00 09/28/20 11:48 DC 09/27/20 13:03 Quetiapine Fumarate (SEROquel) 25 mg 0900,1700 PO 09/25/20 09:00 09/28/20 11:48 DC 09/28/20 08:06 Quetiapine Fumarate (SEROquel) 25 mg BID92 PO 09/28/20 14:00 10/05/20 15:49 DC 10/05/20 14:03 Quetiapine Fumarate (SEROquel) 50 mg HS PO 09/28/20 21:00 10/05/20 15:49 DC 10/04/20 19:38 Quetiapine Fumarate (SEROquel) 50 mg 1200,2100 PO 10/05/20 21:00 10/13/20 13:13 DC 10/13/20 12:01 Quetiapine Fumarate (SEROquel) 25 mg DAILY PO 10/06/20 09:00 10/13/20 13:13 DC 10/13/20 08:56 Divalproex Sodium (Depakote Sprinkles) 250 mg BID PO 10/05/20 21:00 10/13/20 13:13 DC 10/13/20 08:57 Olanzapine (ZyPREXA ZYDIS) 2.5 mg PRN Q2HRS PRN PO PSYCHOSIS 10/09/20 03:45 10/13/20 13:13 DC Acetaminophen (Tylenol) 1,000 mg PRN TID PRN PO MILD PAIN / TEMP > 100.3'F 10/11/20 07:30 10/13/20 13:13 DC Sertraline HCl (Zoloft) 100 mg DAILY PO 10/13/20 09:00 10/13/20 13:13 DC 10/13/20 08:56 Current Medications Medications (Trade) Dose Ordered Sig/Jose Luis Route PRN Reason Start Time Stop Time Status Last Admin Dose Admin Sertraline HCl (Zoloft) 100 mg DAILY PO 10/13/20 09:00 10/13/20 13:13 DC 10/13/20 08:56 I have reviewed the current psychotropics carefully including drug interactions. Risk benefit ratio favors no change other than as noted in my dictated progress note. 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
--- NOTE | 2020-10-14 08:12 | PDOC ---
Exam Note: Hasmukh Note: This note is a late entry for 10/12/2020 covers elements not covered in my initial note. Subjective: The patient was reviewed in the morning of 10/12/2020 for a treatment team meeting with Koki Rao, Ju Navarrete and Ela (social media content manager), Damaris, activity therapy and Sergo XIE, discussed and reviewed the chart. She slept 6-1/2 hours previous night. Average sleeping 6 hours. She remains confused, anxious, looking for her son. Nevertheless she is less restless. Reportedly she has one son and her [id number] is her DPOA. Review of Systems: Ambulation impaired in wheelchair. No CV, , pulmonary, eye, ENT system symptoms on review. Mental Status Exam: The patient is oriented to herself. She is pleasant and smiling as I met with her. Insight and judgment, recent and remote memory, attention and concentration, fund of knowledge is poor consistent with her diagnoses. As I questioned her she was able to tell me she has one son but was not able to quite remember her [id number]. Laboratory Data: Reviewed. Impression: Major neurocognitive disorder Alzheimer vascular with delusion, depression, behavioral disturbance. Anxiety disorder unspecified. Impulse control disorder unspecified. Plan: I have carefully reviewed the patients current psychotropics and reviewed information with Dr. Fisher who had covered for me for the past 2 weeks. Increase Zoloft from 75 mg a day to 100 mg a day. Transition to the nursing h ome on 10/13/2020. Assessment: Vital Signs/I&O: Vital Signs Date Time Temp Pulse Resp B/P (MAP) Pulse Ox O2 Delivery O2 Flow Rate FiO2 10/13/20 08:56 95 164/86 10/13/20 05:40 98.5 20 94 10/12/20 15:38 95.0 10/11/20 05:56 Room Air I & O 10/13/20 10/13/20 10/14/20 14:59 22:59 06:59 Intake Total 600 ml Balance 600 ml Current Medications: Meds: Current Medications Medications (Trade) Dose Ordered Sig/Jose Luis Route PRN Reason Start Time Stop Time Status Last Admin Dose Admin Acetaminophen (Tylenol) 650 mg PRN Q6HRS PRN PO MILD PAIN / TEMP > 100.3'F 09/11/20 16:15 10/11/20 07:34 DC 10/04/20 11:25 Multi-Ingredient Ointment (Analgesic [place]) 1 maritza PRN QID PRN TP MUSCLE PAIN 09/11/20 16:15 10/13/20 13:13 DC Al Hydroxide/Mg Hydroxide (Mylanta Plus Xs) 15 ml PRN AFTMEALHC PRN PO DYSPEPSIA 09/11/20 16:15 10/13/20 13:13 DC Magnesium Hydroxide (Milk Of Magnesia) 2,400 mg PRN QHS PRN PO CONSTIPATION 09/11/20 16:15 10/13/20 13:13 DC Acetaminophen (Tylenol) 1,000 mg TID PO 09/11/20 21:00 10/11/20 07:30 DC 10/10/20 19:55 Amlodipine Besylate (Norvasc) 5 mg DAILY PO 09/12/20 09:00 10/13/20 13:13 DC 10/13/20 08:56 Vitamin D (Vitamin D3) 50,000 unit WEEKLY PO 09/16/20 09:00 10/13/20 13:13 DC 10/07/20 08:39 Lactobacillus Rhamnosus (Culturelle) 1 cap BID PO 09/11/20 21:00 10/13/20 13:13 DC 10/13/20 08:56 Lidocaine (Lidoderm) 1 patch DAILY TP 09/12/20 09:00 09/20/20 05:10 DC 09/19/20 08:51 Metformin HCl (Glucophage) 500 mg DAILYWBKFT PO 09/12/20 08:00 10/13/20 13:13 DC 10/13/20 08:56 Olanzapine (ZyPREXA) 2.5 mg PRN Q4HRS PRN PO ANXIETY 09/11/20 16:15 09/17/20 15:45 DC 09/17/20 13:32 Olanzapine (ZyPREXA) 5 mg QHS PO 09/11/20 21:00 09/15/20 17:07 DC 09/14/20 19:25 Vitamin D (Vitamin D3) 1,000 unit DAILY PO 09/12/20 09:00 10/13/20 13:13 DC 10/13/20 08:56 Cefdinir (Omnicef) 300 mg BID PO 09/12/20 09:00 09/16/20 21:01 DC 09/16/20 20:05 Mirtazapine (Remeron) 7.5 mg QHS PO 09/12/20 21:00 09/16/20 17:59 DC 09/15/20 20:14 Trazodone HCl (Desyrel) 50 mg PRN QHS PRN PO INSOMNIA 09/12/20 18:15 10/13/20 13:13 DC 10/10/20 19:54 Melatonin (Melatonin) 3 mg HS PO 09/13/20 21:00 10/13/20 13:13 DC 10/12/20 20:41 Quetiapine Fumarate (SEROquel) 12.5 mg 0900,1300,1700 PO 09/16/20 17:15 09/23/20 17:30 DC 09/23/20 17:00 Mirtazapine (Remeron) 15 mg QHS PO 09/16/20 21:00 10/13/20 13:13 DC 10/12/20 20:41 Sertraline HCl (Zoloft) 25 mg DAILY PO 09/17/20 09:00 09/20/20 08:59 DC 09/19/20 08:51 Sertraline HCl (Zoloft) 50 mg DAILY PO 09/20/20 09:00 09/22/20 10:01 DC 09/22/20 08:34 Olanzapine (ZyPREXA) 2.5 mg PRN Q2HR PRN PO ANXIETY 09/17/20 15:45 10/09/20 03:44 DC 10/08/20 15:05 Hydroxyzine HCl (Atarax) 25 mg TID PRN PRN PO ITCHING 09/17/20 15:45 10/13/20 13:13 DC 10/06/20 11:35 Lidocaine (Lidoderm) 1 patch PRN DAILY PRN TP TOPICAL PAIN 09/20/20 05:15 10/13/20 13:13 DC Miscellaneous (Lidoderm Patch Removal) 1 ea QHS MC 09/20/20 21:00 09/23/20 20:12 DC 09/21/20 21:00 Sertraline HCl (Zoloft) 75 mg DAILY PO 09/23/20 09:00 10/12/20 12:40 DC 10/12/20 08:19 Quetiapine Fumarate (SEROquel) 12.5 mg 0900,1700 PO 09/24/20 09:00 09/25/20 03:14 DC 09/24/20 16:52 Quetiapine Fumarate (SEROquel) 25 mg 1300 PO 09/24/20 13:00 09/28/20 11:48 DC 09/27/20 13:03 Quetiapine Fumarate (SEROquel) 25 mg 0900,1700 PO 09/25/20 09:00 09/28/20 11:48 DC 09/28/20 08:06 Quetiapine Fumarate (SEROquel) 25 mg BID92 PO 09/28/20 14:00 10/05/20 15:49 DC 10/05/20 14:03 Quetiapine Fumarate (SEROquel) 50 mg HS PO 09/28/20 21:00 10/05/20 15:49 DC 10/04/20 19:38 Quetiapine Fumarate (SEROquel) 50 mg 1200,2100 PO 10/05/20 21:00 10/13/20 13:13 DC 10/13/20 12:01 Quetiapine Fumarate (SEROquel) 25 mg DAILY PO 10/06/20 09:00 10/13/20 13:13 DC 10/13/20 08:56 Divalproex Sodium (Depakote Sprinkles) 250 mg BID PO 10/05/20 21:00 10/13/20 13:13 DC 10/13/20 08:57 Olanzapine (ZyPREXA ZYDIS) 2.5 mg PRN Q2HRS PRN PO PSYCHOSIS 10/09/20 03:45 10/13/20 13:13 DC Acetaminophen (Tylenol) 1,000 mg PRN TID PRN PO MILD PAIN / TEMP > 100.3'F 10/11/20 07:30 10/13/20 13:13 DC Sertraline HCl (Zoloft) 100 mg DAILY PO 10/13/20 09:00 10/13/20 13:13 DC 10/13/20 08:56 Current Medications Medications (Trade) Dose Ordered Sig/Jose Luis Route PRN Reason Start Time Stop Time Status Last Admin Dose Admin Sertraline HCl (Zoloft) 100 mg DAILY PO 10/13/20 09:00 5/25/21 13:13 DC 10/13/20 08:56 I have reviewed the current psychotropics carefully including drug interactions. Risk benefit ratio favors no change other than as noted in my dictated progress note. 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
== END 2020-10-13 13:12 | DRG 57 ==
LOC: GEROPSY 15:07
PROVIDERS: ADMIT Psychiatry & Neurology Psychiatry; ATTEND Psychiatry & Neurology Psychiatry
DX: G30.9 Alzheimer's disease, unspecified (principal); F01.51 Vascular dementia, unspecified severity, with behavioral disturbance; N39.0 Urinary tract infection, site not specified; F02.81 Dementia in other diseases classified elsewhere, unspecified severity, with behavioral disturbance; Z66 Do not resuscitate; F32.9 Major depressive disorder, single episode, unspecified; B96.20 Unspecified Escherichia coli [E. coli] as the cause of diseases classified elsewhere; E11.9 Type 2 diabetes mellitus without complications; F41.9 Anxiety disorder, unspecified; F63.9 Impulse disorder, unspecified; I10 Essential (primary) hypertension; M16.11 Unilateral primary osteoarthritis, right hip; Z79.899 Other long term (current) drug therapy; Z87.891 Personal history of nicotine dependence
CPT/HCPCS: 36415; 80053; 80061; 80164; 81001; 82306; 82607; 82947; 83036; 83540; 83550; 83735; 84436; 84443; 84480; 85025; 85379; 86592; 97530